=== PATIENT | male | born 1970 | race Caucasian/White ===

== ENCOUNTER 2017-09-17 09:20 | Emergency (ER) | payer SELFPAY ==
[~2017-09-17] VITALS: Ht 195.6 cm; Wt 90.7 kg
[2017-09-17] MEDS ORDERED: GABAPENTIN (09:35)
[2017-09-17] MEDS ORDERED: fentaNYL INJECTION 100 MCG/2 ML AMP IVP ONE (09:45)
[2017-09-17 10:06] LABS: BASOPHILS # (AUTO) 0.1 10^3/uL (0.0-0.1); BASOPHILS % (AUTO) 1 % (0-10); EOSINOPHILS # (AUTO) 0.3 10^3/uL (0.0-0.3); EOSINOPHILS % (AUTO) 3 % (0-10); HEMATOCRIT 48 % (40-54); HEMOGLOBIN 17.3 G/DL (13.3-17.7); LYMPHOCYTES # (AUTO) 1.4 X 10^3 (1.0-4.0); LYMPHOCYTES % (AUTO) 15 % (12-44); MEAN CORPUSCULAR HEMOGLOBIN 34 PG (25-34); MEAN CORPUSCULAR HGB CONC 36 G/DL (32-36); MEAN CORPUSCULAR VOLUME 94 FL (80-99); MEAN PLATELET VOLUME 10.9 FL (7.4-10.4); MONOCYTES % (AUTO) 10 % (0-12); NEUTROPHILS % (AUTO) 72 % (42-75); PLATELET COUNT 238 10^3/uL (130-400); RED BLOOD COUNT 5.13 10^6/uL (4.35-5.85); RED CELL DISTRIBUTION WIDTH 14.3 % (10.0-14.5); WHITE BLOOD COUNT 9.8 10^3/uL (4.3-11.0)
[2017-09-17 10:30] LABS: ALANINE AMINOTRANSFERASE 14 U/L (0-55); ALBUMIN 4.2 GM/DL (3.2-4.5); ALKALINE PHOSPHATASE 59 U/L (40-136); BILIRUBIN,TOTAL 0.5 MG/DL (0.1-1.0); BUN/CREATININE RATIO 14; CALCIUM 9.4 MG/DL (8.5-10.1); CARBON DIOXIDE 24 MMOL/L (21-32); CHLORIDE 109 MMOL/L (98-107); CREATININE SERUM 0.99 MG/DL (0.60-1.30); GFR ESTIMATED > 60; GLUCOSE 117 MG/DL (70-105); MAGNESIUM 2.1 MG/DL (1.8-2.4); SODIUM 144 MMOL/L (135-145)
[2017-09-17 10:31] LABS: AMPHETAMINE SCREEN, URINE NEGATIVE (NEGATIVE); BARBITURATE SCREEN URINE NEGATIVE (NEGATIVE); BENZODIAZEPINES SCREEN URINE NEGATIVE (NEGATIVE); CANNABINOID SCREEN, URINE POSITIVE (NEGATIVE); COCAINE SCREEN URINE NEGATIVE (NEGATIVE); METHADONE STAT NEGATIVE (NEGATIVE); METHAMPHETAMINE SCREEN URINE S NEGATIVE (NEGATIVE); OPIATE SCREEN URINE NEGATIVE (NEGATIVE); OXYCODONE STAT NEGATIVE (NEGATIVE); PROPOXYPHENE STAT NEGATIVE (NEGATIVE); TRICYCLIC ANTIDEPRESSANTS SCRE NEGATIVE (NEGATIVE)
[2017-09-17 10:52] LABS: TSH (THYROID ANALYZER) 1.25 UIU/ML (0.35-4.94)
--- NOTE | 2017-09-17 10:52 | Diagnostic Imaging Report ---
CLINICAL INDICATION: Patient complains of headache involving the top right side of head since yesterday. Patient passed out yesterday for 5-10 minutes. Head shaking for unknown reason. Exams: 1: Axial Head CT without IV contrast. 2: Axial Maxillofacial CT scan without IV contrast with sagittal and coronal reformations. Comparison: None. Findings: Head CT: There is skull streak artifact which obscures portions of the posterior fossa, brainstem, and portion of the brain near the skull, mainly in the frontal region. There is no evidence of acute cerebral infarct, intracranial hemorrhage, or gross mass effect. The brain parenchymal volume appears appropriate for patient's age. There is normal mcwilliams-white matter distinction. There is no significant midline shift or herniation. There is no evidence of hydrocephalus. The basal cisterns are unremarkable. Maxillofacial CT: There is mild to moderate peripheral mucosal thickening involving both maxillary sinuses. There is mild mucosal thickening involving the ethmoid sinus. There are chronic bony defects with medial concave deformities involving the medial orbital wang bilaterally. There is no evidence of extension of the extraocular muscles into the regions of herniated intraorbital fat. Minimal rightward nasal septal deviation seen posteriorly. There is no evidence of acute skull or maxillofacial fracture. Poor dentition is seen with multiple dental caries. IMPRESSION: 1: Unremarkable CT scan of brain. 2: There is no acute skull or maxillofacial fracture. 3: There is chronic bony deformities involving the right and left medial orbital wang with intraorbital fat extending medially. There is no gross CT evidence of extraocular muscle entrapment. 4: Paranasal sinus disease. 5: Poor dentition with multiple dental caries. Dictated by: Dictated on workstation # [id number]
[2017-09-17] MEDS ORDERED: HYDROCHLOROTHIAZIDE 12.5 MG (HCTZ) CAP PO ONE (12:30)
[2017-09-17] MEDS ORDERED: lisINopril 10 MG (PRINIVIL) TABLET PO ONE (12:30)
[2017-09-17] MEDS ORDERED: LISI1TAB6 PO (12:50)
--- NOTE | 2017-09-17 12:50 | ED Headache ---
General Chief Complaint: Head/Cervical Problems Stated Complaint: PASSED OUT X1 DAY,SHARP [place] AND HEAD SHAKING Nursing Triage Note: TO ROOM C/O HEADACHE SNCE YESTERDAY. WAS SEEN AT [facility] AND GIVEN IM OF TORADOL. DID NOT HELP TODAY HEAD SHAKING FOR UNKNOW REASON. Nursing Sepsis Screen: No Definite Risk Source: patient Exam Limitations: no limitations History of Present Illness Date Seen by Provider: September 17, 2017 Time Seen by Provider: 09:35 Initial Comments This 47-year-old ambulatory gentleman presents to the emergency room with complaints of right sided frontal headache that started yesterday. He woke this morning with a tremor of his head. He was seen at [facility] yesterday. He was treated with Toradol for his headache. His pain has worsened since then and we' ll can let 03:00. That's when he noticed a head tremor as well. He was taking aspirin and ibuprofen. He states gjlw-mbz-[id number] medications and Toradol have not been effective for managing the pain. He has notably hypertensive. He denies any use of stimulants aside from nicotine. He reports being a weekend drinker but does not drink daily. He has past marijuana use but denies any recent drug use. He has no focal neurologic deficits aside from his head tremor. Allergies and Home Medications Allergies Coded Allergies: No Known Drug Allergies (Unverified , 09/17/17) Home Medications Lisinopril/Hydrochlorothiazide 1 Each Tablet, 1 EACH PO DAILY Prescribed by: WILDER ROBLERO on 09/17/17 1250 Patient Home Medication List Home Medication List Reviewed: Yes Review of Systems Constitutional: no symptoms reported Eyes: No Symptoms Reported Ears, Nose, Mouth, Throat: no symptoms reported Respiratory: no symptoms reported Cardiovascular: no symptoms reported Gastrointestinal: no symptoms reported Genitourinary: no symptoms reported Musculoskeletal: no symptoms reported Skin: no symptoms reported Psychiatric/Neurological: See HPI Past Dzbugil-Wgjuzc-Ignenu Hx Past Med/Social Hx: Reviewed and Corrections made Patient Social History Alcohol Use: Occasionally Uses Alcohol Beverage of Choice: Beer Recreational Drug Use: Yes (Past THC use) Smoking Status: Current Everyday Smoker Recent Foreign Travel: No Contact w/Someone Who Travel: No Recent Infectious Disease Expo: No Past Medical History Surgeries: Yes Amputation (Traumatic amputations of the fingers on left hand) Respiratory: No Cardiac: No Neurological: No Reproductive Disorders: No Genitourinary: No Gastrointestinal: No Musculoskeletal: Yes Chronic Back Pain, Fractures Endocrine: No HEENT: No Cancer: No Psychosocial: No Integumentary: No Blood Disorders: No Physical Exam Vital Signs Vital Signs - First Documented 09/17/17 09:27 Temp 98.2 Pulse 77 Resp 18 B/P (MAP) 166/31 (76) Pulse Ox 9 O2 Delivery Room Air Capillary Refill : Less Than 3 Seconds General Appearance: WD/WN, mild distress HEENT: PERRL/EOMI, normal ENT inspection, pharynx normal, other (Tympanic membranes obstructed by cerumen bilaterally. No tenderness over the forehead or scalp in the region of his pain. Severe dental decay and erosion with no overt abscess) Neck: normal inspection Cardiovascular: regular rate, rhythm, no edema, no murmur Respiratory: lungs clear, normal breath sounds, no respiratory distress, no accessory muscle use Gastrointestinal: normal bowel sounds, non tender, soft Extremities: non-tender, normal inspection, no pedal edema Psychiatric: alert, oriented x 3 Crainal Nerves: normal hearing, normal speech, PERRL, other (Head tremor noted) Coordination/Gait: normal finger to nose (Normal heel to briceno), normal gait Motor/Sensory: no motor deficit, no sensory deficit Skin: normal color, warm/dry Progress/Results/Core Measures Results/Orders Lab Results Laboratory Tests Test 09/17/17 09:53 09/17/17 09:56 Range/Units White Blood Count 9.8 4.3-11.0 10^3/uL Red Blood Count 5.13 4.35-5.85 10^6/uL Hemoglobin 17.3 13.3-17.7 G/DL Hematocrit 48 40-54 % Mean Corpuscular Volume 94 80-99 FL Mean Corpuscular Hemoglobin 34 25-34 PG Mean Corpuscular Hemoglobin Concent 36 32-36 G/DL Red Cell Distribution Width 14.3 10.0-14.5 % Platelet Count 238 130-400 10^3/uL Mean Platelet Volume 10.9 H 7.4-10.4 FL Neutrophils (%) (Auto) 72 42-75 % Lymphocytes (%) (Auto) 15 12-44 % Monocytes (%) (Auto) 10 0-12 % Eosinophils (%) (Auto) 3 0-10 % Basophils (%) (Auto) 1 0-10 % Neutrophils # (Auto) 7.0 1.8-7.8 X 10^3 Lymphocytes # (Auto) 1.4 1.0-4.0 X 10^3 Monocytes # (Auto) 1.0 0.0-1.0 X 10^3 Eosinophils # (Auto) 0.3 0.0-0.3 10^3/uL Basophils # (Auto) 0.1 0.0-0.1 10^3/uL Sodium Level 144 135-145 MMOL/L Potassium Level 4.0 3.6-5.0 MMOL/L Chloride Level 109 H 98-107 MMOL/L Carbon Dioxide Level 24 21-32 MMOL/L Anion Gap 11 5-14 MMOL/L Blood Urea Nitrogen 14 7-18 MG/DL Creatinine 0.99 0.60-1.30 MG/DL Estimat Glomerular Filtration Rate > 60 BUN/Creatinine Ratio 14 Glucose Level 117 H 70-105 MG/DL Calcium Level 9.4 8.5-10.1 MG/DL Magnesium Level 2.1 1.8-2.4 MG/DL Total Bilirubin 0.5 0.1-1.0 MG/DL Aspartate Amino Transf (AST/SGOT) 12 5-34 U/L Alanine Aminotransferase (ALT/SGPT) 14 0-55 U/L Alkaline Phosphatase 59 40-136 U/L Total Protein 7.0 6.4-8.2 GM/DL Albumin 4.2 3.2-4.5 GM/DL TSH [place] Testing 1.25 0.35-4.94 UIU/ML Serum Alcohol < 10 <10 MG/DL Urine Opiates Screen NEGATIVE NEGATIVE Urine Oxycodone Screen NEGATIVE NEGATIVE Urine Methadone Screen NEGATIVE NEGATIVE Urine Propoxyphene Screen NEGATIVE NEGATIVE Urine Barbiturates Screen NEGATIVE NEGATIVE Ur Tricyclic Antidepressants Screen NEGATIVE NEGATIVE Urine Phencyclidine Screen NEGATIVE NEGATIVE Urine Amphetamines Screen NEGATIVE NEGATIVE Urine Methamphetamines Screen NEGATIVE NEGATIVE Urine Benzodiazepines Screen NEGATIVE NEGATIVE Urine Cocaine Screen NEGATIVE NEGATIVE Urine Cannabinoids Screen POSITIVE H NEGATIVE My Orders Orders - WILDER CUBA MD Alcohol (09/17/17 09:37) Cbc With Automated Diff (09/17/17 09:37) Comprehensive Metabolic Panel (09/17/17 09:37) Drug Screen Stat (Urine) (09/17/17 09:37) Magnesium (09/17/17 09:37) Thyroid Analyzer (09/17/17 09:37) Saline Lock/Iv-Start (09/17/17 09:37) Ct Head/Maxillofacial Wo (09/17/17 09:37) Fentanyl Injection (Sublimaze Injection (09/17/17 09:45) Lisinopril Tablet (Zestril Tablet) (09/17/17 12:30) Hydrochlorothiazide Cap/Tablet (Hctz Cap (09/17/17 12:30) Ketorolac Injection (Toradol Injection) (09/17/17 13:00) Medications Given in ED Current Medications Medications Dose Ordered Sig/Michelle Route Start Time Stop Time Status Last Admin Dose Admin Hydrochlorothiazide 12.5 mg ONCE ONCE PO 09/17/17 12:30 09/17/17 12:31 DC 09/17/17 13:03 12.5 MG Ketorolac Tromethamine 15 mg ONCE ONCE IVP 09/17/17 13:00 09/17/17 13:01 DC 09/17/17 13:01 15 MG Lisinopril 10 mg ONCE ONCE PO 09/17/17 12:30 09/17/17 12:31 DC 09/17/17 13:03 10 MG Vital Signs/I&O 09/17/17 09/17/17 09:27 13:00 Temp 98.2 Pulse 77 68 Resp 18 18 B/P (MAP) 166/31 (76) 155/105 Pulse Ox 9 97 O2 Delivery Room Air Room Air Blood Pressure Mean: 76 Progress Progress Note : Progress Note Patient's pain was initially treated with fentanyl. This improved his pain and his blood pressure also likewise improved. Head tremor seemed to be less intense while pain was controlled. CT of the head and face was obtained. No significant acute abnormalities were identified. There was some paranasal sinus disease but this was not the location of his pain. Pain began to rebound and his blood pressure did as well. He was given Toradol for additional management of his pain. Blood pressure was treated with lisinopril and hydrochlorothiazide. We discussed potential causes of his hypertension. Withdraw from alcohol was considered but it does not seem like he drinks often enough to experience withdraw. Diagnostic Imaging Diagonstic Imaging: CT Plain Films/CT/US/NM/MRI: facial bones, head Comments CT head and face viewed by me and report reviewed. See report below: NAME: NURIS [facility] REC#: [id number] PT STATUS: DEP ER : 1970 PHYSICIAN: WILDER CUBA MD ADMIT DATE: 09/17/17/ER Signed Date of Exam: 09/17/17 CT HEAD/MAXILLOFACIAL WO CLINICAL INDICATION: Patient complains of headache involving the top right side of head since yesterday. Patient passed out yesterday for 5-10 minutes. Head shaking for unknown reason. Exams: 1: Axial Head CT without IV contrast. 2: Axial Maxillofacial CT scan without IV contrast with sagittal and coronal reformations. Comparison: None. Findings: Head CT: There is skull streak artifact which obscures portions of the posterior fossa, brainstem, and portion of the brain near the skull, mainly in the frontal region. There is no evidence of acute cerebral infarct, intracranial hemorrhage, or gross mass effect. The brain parenchymal volume appears appropriate for patient's age. There is normal mcwilliams-white matter distinction. There is no significant midline shift or herniation. There is no evidence of hydrocephalus. The basal cisterns are unremarkable. Maxillofacial CT: There is mild to moderate peripheral mucosal thickening involving both maxillary sinuses. There is mild mucosal thickening involving the ethmoid sinus. There are chronic bony defects with medial concave deformities involving the medial orbital wang bilaterally. There is no evidence of extension of the extraocular muscles into the regions of herniated intraorbital fat. Minimal rightward nasal septal deviation seen posteriorly. There is no evidence of acute skull or maxillofacial fracture. Poor dentition is seen with multiple dental caries. IMPRESSION: 1: Unremarkable CT scan of brain. 2: There is no acute skull or maxillofacial fracture. 3: There is chronic bony deformities involving the right and left medial orbital wang with intraorbital fat extending medially. There is no gross CT evidence of extraocular muscle entrapment. 4: Paranasal sinus disease. 5: Poor dentition with multiple dental caries. Dictated by: Dictated on workstation # [id number] Dict: 09/17/17 1026 Trans: 09/17/171711 Interpreted by: NOLAN LOPEZ MD Electronically signed by: NOLAN LOPEZ MD 09/17/171711 Departure Impression Primary Impression: Hypertensive urgency Additional Impressions: Acute headache Qualified Codes: R51 - Headache Benign head tremor Poor dentition Paranasal sinus disease Disposition: 01 HOME, SELF-CARE Condition: Improved Departure-Patient Inst. Decision time for Depature: 12:15 Referrals: [facility] (PCP/Family) Primary Care Physician Patient Instructions: High Blood Pressure (DC) Add. Discharge Instructions: Fill your prescription and start it tomorrow morning. Follow-up with your primary care provider as soon as possible, preferably in 1 to 2 weeks. Avoid stimulants such as caffeine, energy drinks, decongestant medications, diet medications, etc. Avoid excessive salt in your diet. Return to care if symptoms are worsening. Drink plenty of clear liquids and eat a well-balanced diet. For pain take ibuprofen up to 600 mg every 6 hours as needed. Add Tylenol ( acetaminophen) up to 1000 mg every 6 hours as needed for additional pain relief. All discharge instructions reviewed with patient and/or family. Voiced understanding. Scripts Lisinopril/Hydrochlorothiazide (Lisinopril-Hctz 10-12.5 mg Tab) 1 Each Tablet 1 EACH PO DAILY, #30 TAB Prov: WILDER CUBA MD 09/17/17 Copy Copies To 1: EMMANUEL FERNANDEZ MD, JOSHUA T MD September 17, 2017 12:50
[2017-09-17 13:00] VITALS: BP 155/105
[2017-09-17] MEDS ORDERED: KETOROLAC 30 MG/ML VIAL IVP ONE (13:00)
== END 2017-09-17 13:00 | disposition home or self-care (01) ==
LOC: ER 09:24
DX: I16.0 Hypertensive urgency (principal); R51 Headache; G25.0 Essential tremor; K08.9 Disorder of teeth and supporting structures, unspecified; J32.9 Chronic sinusitis, unspecified; F17.200 Nicotine dependence, unspecified, uncomplicated; Z89.022 Acquired absence of left finger(s)
CPT/HCPCS: 36415; 70450; 70486; 80053; 80306; 80320; 83735; 84443; 85025; 96374; 96375

== ENCOUNTER 2017-11-22 19:47 | Emergency (ER) | payer SELFPAY ==
[~2017-11-22] VITALS: Ht 188 cm; Wt 88.5 kg
[~2017-11-22 19:47] MED LIST: GABAPENTIN; LISI1TAB6 PO
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
[2017-11-22] MEDS ORDERED: HYDROcodone/APAP 5 MG/325 MG (LORTAB) TAB PO ONE (21:15)
[2017-11-22] MEDS ORDERED: RX-HYDROCODONE/APAP 5/325 MG #4 TAB PK PO ONE (21:34)
[2017-11-22 21:40] VITALS: BP 168/94
--- OUTSIDE RECORDS SUMMARY | 2017-11-23 11:24 | XMS REPORT ---
Author Author CASEY CHIN Organization [facility] Address [address] [place] [address] Care Team Providers Care Hvac Manager Name Role Phone CASEY CHIN Unavailable PROBLEMS Type Condition ICD9-CM Code LPC82-MR Code Onset Dates Condition Status SNOMED Code Problem Tobacco use Z72.0 Active 924527172 Problem Peripheral vascular disease I73.9 Active 362466488 Problem Lumbago with sciatica, left side M54.42 Active 347038616 Problem Other chronic pain G89.29 Active 28089498 Problem Lumbago with sciatica, right side M54.41 Active [id number] ALLERGIES No Information ENCOUNTERS Encounter Location Date Diagnosis [place] [id number] [place] [address] Sep, [address] [address] Sep, Lumbar neuritis M54.[address] [address] August, Acute nonintractable headache, unspecified headache type R51 ; Loss of consciousness R40.20 ; Tobacco use Z72.0 ; Peripheral vascular disease I73.9 and Impacted cerumen of both ears H61.23 [place] [id number] [place] [address] August, [address] [address] August, Lumbago with sciatica, left side M54.42 ; Lumbago with sciatica, right side M54.41 and Other chronic pain G89.[address] [address] Jul, Acute midline low back pain without sciatica M54.5 [facility] [address] [facility] [id number] [place] [address] May, Lumbar neuritis M54.16 [facility] [address] [facility] [id number], [place] [address] May, Lumbar neuritis M54.16 [facility] [address] [facility] [id number], [place] [address] Apr, Viral gastroenteritis A08.4 IMMUNIZATIONS No Known Immunizations SOCIAL HISTORY Never Assessed REASON FOR VISIT Xray (walk-in) MHill RT(R) PLAN OF CARE VITAL SIGNS MEDICATIONS Unknown Medications RESULTS Name Result Date Reference Range Xray : Spine, Lumbar 2-3 views (IN HOUSE) 2017-06-15 PROCEDURES Procedure Date Ordered Result Body Site X-RAY EXAM OF LOWER SPINE Jun 15, 2017 INSTRUCTIONS MEDICATIONS ADMINISTERED No Known Medications MEDICAL (GENERAL) HISTORY Type Description Date Surgical History left knee x3 88,92.2000 Surgical History 3 fringers removed from left hand 1989 Surgical History right shoulder 2011 Hospitalization History anxety 2014
--- OUTSIDE RECORDS SUMMARY | 2017-11-23 11:24 | XMS REPORT ---
Author Author CASEY CHIN Organization [facility] Address [address] [place] [address] Care Team Providers Care Pest Management Supervisor Name Role Phone CASEY CHIN Unavailable PROBLEMS Type Condition ICD9-CM Code DYM14-TQ Code Onset Dates Condition Status SNOMED Code Problem Tobacco use Z72.0 Active 961460805 Problem Peripheral vascular disease I73.9 Active 809133700 Problem Lumbago with sciatica, left side M54.42 Active 704536624 Problem Other chronic pain G89.29 Active 10292056 Problem Lumbago with sciatica, right side M54.41 Active 160900714436749 ALLERGIES No Known Allergies ENCOUNTERS Encounter Location Date Diagnosis [place] [address] [address] Oct, Lumbar neuritis M54.16 [place] [address] [address] Oct, [place] [address] [address] Sep, [place] [address] [place] [id number] [place] [address] Sep, Lumbar neuritis M54.[address] [address] August, Acute nonintractable headache, unspecified headache type R51 ; Loss of consciousness R40.20 ; Tobacco use Z72.0 ; Peripheral vascular disease I73.9 and Impacted cerumen of both ears H61.23 [place] [address] [address] August, [place] [address] [address] August, Lumbago with sciatica, left side M54.42 ; Lumbago with sciatica, right side M54.41 and Other chronic pain G89.29 [facility] [address] [place] [id number] [address] Jul, Acute midline low back pain without sciatica M54.5 [facility] [address] [place] [id number] [address] May, Lumbar neuritis M54.16 [facility] [address] [place] [id number] [address] May, Lumbar neuritis M54.16 [facility] [address], [place] [address] Apr, Viral gastroenteritis A08.4 IMMUNIZATIONS No Known Immunizations SOCIAL HISTORY Never Assessed REASON FOR VISIT Lower back pain -MI PLAN OF CARE VITAL SIGNS Height 75 in 2017-08-12 Weight 199 lbs 2017-08-12 Temperature 98.3 degrees Fahrenheit 2017-08-12 Heart Rate 74 bpm 2017-08-12 Respiratory Rate 18 2017-08-12 BMI 24.87 kg/m2 2017-08-12 Blood pressure systolic 132 mmHg 2017-08-12 Blood pressure diastolic 82 mmHg 2017-08-12 MEDICATIONS Medication Instructions Dosage Frequency Start Date End Date Duration Status Zanaflex 4 MG Orally Three times a day 1 tablet as needed 8h Jul, Active Grant 10-325 MG Orally every 6 hrs 1 tablet as needed 6h Jul, Active Cyclobenzaprine HCl 10 mg Orally Three times a day 1 tablet as needed 8h May, Active PredniSONE 20 mg Orally Once a day 2 tablets 24h Jul, Jul, 05 days Active RESULTS No Results PROCEDURES No Known procedures INSTRUCTIONS MEDICATIONS ADMINISTERED No Known Medications MEDICAL (GENERAL) HISTORY Type Description Date Surgical History left knee x3 88,92.2001 Surgical History 3 fringers removed from left hand 1989 Surgical History right shoulder 2011 Hospitalization History anxety 2014
--- OUTSIDE RECORDS SUMMARY | 2017-11-23 11:24 | XMS REPORT ---
Author Author SHELLI HIGHTOWER [facility] Address [address] [place] [address] Care Team Providers Care It Sales Representative Name Role Phone SHELLI HIGHTOWER Unavailable PROBLEMS Type Condition ICD9-CM Code SFE54-ZY Code Onset Dates Condition Status SNOMED Code Problem Tobacco use Z72.0 Active 535872320 Problem Peripheral vascular disease I73.9 Active 642841129 Problem Lumbago with sciatica, left side M54.42 Active 297467417 Problem Other chronic pain G89.29 Active 06765348 Problem Lumbago with sciatica, right side M54.41 Active 164965583849438 ALLERGIES No Known Allergies ENCOUNTERS Encounter Location Date Diagnosis [place] [address] [place] [id number] [place] [address] Sep, [place] [address] [address] August, Acute nonintractable headache, unspecified headache type R51 ; Loss of consciousness R40.20 ; Tobacco use Z72.0 ; Peripheral vascular disease I73.9 and Impacted cerumen of both ears H61.23 [place] [address] [place] [id number] [place] [address] August, [place] [address] [place] [id number] [place] [address] August, Lumbago with sciatica, left side M54.42 ; Lumbago with sciatica, right side M54.41 and Other chronic pain G89.29 [place] [address] [place] [id number] [place] [address] Jul, Acute midline low back pain without sciatica M54.5 [place] [address] [place] [id number] [address] May, Lumbar neuritis M54.16 [facility] [address] [facility] [id number], [place] [address] May, Lumbar neuritis M54.16 [facility] [address] [facility] [id number], [place] [address] Apr, Viral gastroenteritis A08.4 IMMUNIZATIONS No Known Immunizations SOCIAL HISTORY Never Assessed REASON FOR VISIT Flu symptoms Pt states he went to work today and started vomiting, states he vomited 6-7 times, has congestion and cough this all started today TATE Cuellar PLAN OF CARE Activity Details Follow Up prn Reason: VITAL SIGNS Height 75 in 2017-04-23 Weight 210.4 lbs 2017-04-23 Temperature 98.5 degrees Fahrenheit 2017-04-23 Heart Rate 78 bpm 2017-04-23 Respiratory Rate 18 2017-04-23 BMI 26.30 kg/m2 2017-04-23 Blood pressure systolic 118 mmHg 2017-04-23 Blood pressure diastolic 76 mmHg 2017-04-23 MEDICATIONS Medication Instructions Dosage Frequency Start Date End Date Duration Status Zofran ODT 4 MG Orally every 8 hrs 1 tablet on the tongue and allow to dissolve 8h Apr, 10 days Active RESULTS Name Result Date Reference Range INFLUENZA A & B (IN HOUSE) 2017-04-23 INFLUENZA A negative INFLUENZA B negative Control + Lot # [id number] Exp date PROCEDURES Procedure Date Ordered Result Body Site INFLUENZA ASSAY W/OPTIC Apr 23, 2017 INSTRUCTIONS MEDICATIONS ADMINISTERED No Known Medications MEDICAL (GENERAL) HISTORY Type Description Date Surgical History left knee x3 88,92.2001 Surgical History 3 fringers removed from left hand 1989 Surgical History right shoulder 2011 Hospitalization History anxety 2014
== END 2017-11-22 21:52 | disposition home or self-care (01) ==
LOC: EDUNIT# 19:47 → ER 19:48
DX: S00.83XA Contusion of other part of head, initial encounter (principal); S10.93XA Contusion of unspecified part of neck, initial encounter; S40.011A Contusion of right shoulder, initial encounter; S20.211A Contusion of right front wall of thorax, initial encounter; R40.2142 Coma scale, eyes open, spontaneous, at arrival to emergency department; R40.2252 Coma scale, best verbal response, oriented, at arrival to emergency department; R40.2362 Coma scale, best motor response, obeys commands, at arrival to emergency department; Z88.8 Allergy status to other drugs, medicaments and biological substances; Y04.8XXA Assault by other bodily force, initial encounter
CPT/HCPCS: 70450; 71100; 72125; 73030

== ENCOUNTER 2018-02-01 05:59 | Observation (INO) | payer OTHER ==
[2018-02-01] VITALS (10 sets, daily range): BP systolic 104–141; BP diastolic 71–92
[~2018-02-01] VITALS: Ht 188 cm; Wt 88.9 kg
--- OUTSIDE RECORDS SUMMARY | 2018-02-01 06:05 | XMS REPORT ---
Author Author CASEY CHIN Organization [facility] Address [address] [place] [address] Care Team Providers Care Power Plant Installer Name Role Phone CASEY CHIN Unavailable PROBLEMS Type Condition ICD9-CM Code YHH30-LE Code Onset Dates Condition Status SNOMED Code Problem Tobacco use Z72.0 Active 700509958 Problem Peripheral vascular disease I73.9 Active 250108435 Problem Lumbago with sciatica, left side M54.42 Active 904502398 Problem Other chronic pain G89.29 Active 69579148 Problem Lumbago with sciatica, right side M54.41 Active 181556917720788 ALLERGIES No Information ENCOUNTERS Encounter Location Date Diagnosis [place] [address] [place] [id number] [place] [address] Nov, Lumbago with sciatica, right side M54.41 and Lumbago with sciatica, left side M54.42 [place] [address] [address] Oct, Lumbar neuritis M54.16 [place] [address] [address] Oct, [place] [address] [address] Sep, [place] [address] [place] [id number] [place] [address]- [address] Sep, Lumbar neuritis M54.16 [place] [address] [address] August, Acute nonintractable headache, unspecified headache type R51 ; Loss of consciousness R40.20 ; Tobacco use Z72.0 ; Peripheral vascular disease I73.9 and Impacted cerumen of both ears H61.23 [facility] [address] [place] [address] August, [facility] [address] [place] [id number] [place] [address]- [address] August, Lumbago with sciatica, left side M54.42 ; Lumbago with sciatica, right side M54.41 and Other chronic pain G89.29 [place] [address] [address] Jul, Acute midline low back pain without sciatica M54.5 [place] [address] [address] May, Lumbar neuritis M54.16 [place] [address] [place] [id number] [place] [address]- [address] May, Lumbar neuritis M54.16 [facility] WALK IN [facility] [address] [place] [id number] [place] [address] Apr, Viral gastroenteritis A08.4 IMMUNIZATIONS No Known Immunizations SOCIAL HISTORY Never Assessed REASON FOR VISIT Controlled Med Refill PLAN OF CARE VITAL SIGNS MEDICATIONS Unknown Medications RESULTS No Results PROCEDURES No Known procedures INSTRUCTIONS MEDICATIONS ADMINISTERED No Known Medications MEDICAL (GENERAL) HISTORY Type Description Date Medical History several broken bones Medical History knee surgery x3 Medical History shoulder surgery right side Medical History broke back Medical History concussion Surgical History left knee x3 88,92.2001 Surgical History 3 fringers removed from left hand 1989 Surgical History right shoulder 2011 Hospitalization History anxety 2014
--- OUTSIDE RECORDS SUMMARY | 2018-02-01 06:05 | XMS REPORT ---
Author Author CASEY CHIN Organization [facility] Address [address] [place] [address] Care Team Providers Care Seafood Preparer Name Role Phone CASEY CHIN Unavailable PROBLEMS Type Condition ICD9-CM Code VAG65-KH Code Onset Dates Condition Status SNOMED Code Problem Tobacco use Z72.0 Active 953402472 Problem Peripheral vascular disease I73.9 Active 760716241 Problem Lumbago with sciatica, left side M54.42 Active 015807684 Problem Other chronic pain G89.29 Active 53364831 Problem Lumbago with sciatica, right side M54.41 Active 237237902413733 ALLERGIES No Information ENCOUNTERS Encounter Location Date Diagnosis [place] [address] [place] [id number] [place] [address] Nov, Lumbago with sciatica, right side M54.41 and Lumbago with sciatica, left side M54.42 [place] [address] [address] Oct, Lumbar neuritis M54.16 [place] [address] [address]- [address] Oct, [place] [address] [address]- [address] Sep, [place] [address] [place] [id number] [place] [address]26[address]- [address] Sep, Lumbar neuritis M54.16 [place] [address] [address] August, Acute nonintractable headache, unspecified headache type R51 ; Loss of consciousness R40.20 ; Tobacco use Z72.0 ; Peripheral vascular disease I73.9 and Impacted cerumen of both ears H61.23 [facility] [address] [place] [address] August, [facility] [address] [place] [id number] [place] [address]- [address] August, Lumbago with sciatica, left side M54.42 ; Lumbago with sciatica, right side M54.41 and Other chronic pain G89.29 [place] [address] [address] Jul, Acute midline low back pain without sciatica M54.5 [place] [address] [address] May, Lumbar neuritis M54.16 [place] [address] [place] [id number] [place] [address]- [address] May, Lumbar neuritis M54.16 [facility] IN [facility] [address] [place] [id number] [place] [address] Apr, Viral gastroenteritis A08.4 IMMUNIZATIONS No Known Immunizations SOCIAL HISTORY Never Assessed REASON FOR VISIT Lab results PLAN OF CARE VITAL SIGNS MEDICATIONS Unknown [...]
--- OUTSIDE RECORDS SUMMARY | 2018-02-01 06:05 | XMS REPORT ---
Author Author CASEY CHIN Organization [facility] Address [address] [place] [address] Care Team Providers Care Double Surface Operator Name Role Phone CASEY CHIN Unavailable PROBLEMS Type Condition ICD9-CM Code IIV50-JD Code Onset Dates Condition Status SNOMED Code Problem Tobacco use Z72.0 Active 156867344 Problem Peripheral vascular disease I73.9 Active 395120530 Problem Lumbago with sciatica, left side M54.42 Active 658871037 Problem Other chronic pain G89.29 Active 81696774 Problem Lumbago with sciatica, right side M54.41 Active 137429664845022 ALLERGIES No Information ENCOUNTERS Encounter Location Date Diagnosis [place] [address] [place] [id number] [place] [address] Nov, Lumbago with sciatica, right side M54.41 and Lumbago with sciatica, left side M54.42 [place] [address] [address] Oct, Lumbar neuritis M54.16 [place] [address] [address]- [address] Oct, [place] [address] [address]- [address] Sep, [place] [address] [place] [id number] [place] [address]- [address] Sep, Lumbar neuritis M54.16 [place] [address] [address] August, Acute nonintractable headache, unspecified headache type R51 ; Loss of consciousness R40.20 ; Tobacco use Z72.0 ; Peripheral vascular disease I73.9 and Impacted cerumen of both ears H61.23 [facility] [address] [place] [address]3983- [address] August, [facility] [address] [place] [id number] [place] [address]- [address] August, Lumbago with sciatica, left side M54.42 ; Lumbago with sciatica, right side M54.41 and Other chronic pain G89.29 [place] [address] [address] Jul, Acute midline low back pain without sciatica M54.5 [place] [address] [address]- [address] May, Lumbar neuritis M54.16 [place] [address] [place] [id number] [place] [address]165- 287[address] May, Lumbar neuritis M54.16 [facility] IN [facility] [address] [place] [id number] [place] [address] Apr, Viral gastroenteritis A08.4 IMMUNIZATIONS No Known Immunizations SOCIAL HISTORY Never Assessed REASON FOR VISIT violation// PLAN OF CARE VITAL SIGNS MEDICATIONS Unknown [...]
--- OUTSIDE RECORDS SUMMARY | 2018-02-01 06:05 | XMS REPORT ---
Author Author CASEY CHIN Organization [facility] Address [address] [place] [address] Care Team Providers Care Auctioneer Tobacco Name Role Phone CASEY CHIN Unavailable PROBLEMS Type Condition ICD9-CM Code TXQ37-PN Code Onset Dates Condition Status SNOMED Code Problem Tobacco use Z72.0 Active 395911008 Problem Peripheral vascular disease I73.9 Active 022888047 Problem Lumbago with sciatica, left side M54.42 Active 464571383 Problem Other chronic pain G89.29 Active 74567459 Problem Lumbago with sciatica, right side M54.41 Active 815129708209329 ALLERGIES No Known Allergies ENCOUNTERS Encounter Location Date Diagnosis [place] [address] [address] Nov, [place] [address] [address] Oct, Lumbar neuritis M54.16 [place] [address] [address]- [address] Oct, [place] [address] [place] [id number] [place] [address] 19663- [address] Sep, [place] [address] [place] [id number] [place] [address] Sep, Lumbar neuritis M54.16 [place] [address] [address]- [address] August, Acute nonintractable headache, unspecified headache type R51 ; Loss of consciousness R40.20 ; Tobacco use Z72.0 ; Peripheral vascular disease I73.9 and Impacted cerumen of both ears H61.23 [place] [address] [address]- [address] August, [facility] [address], [place] [address] August, Lumbago with sciatica, left side M54.42 ; Lumbago with sciatica, right side M54.41 and Other chronic pain G89.29 [place] [address], [place] [address] Jul, Acute midline low back pain without sciatica M54.5 [facility] [address] [place] [address], [place] [address] May, Lumbar neuritis M54.16 [place] [address] [place] [address] [address] May, Lumbar neuritis M54.16 [facility] WALK IN [facility] [address], [place] [address] Apr, Viral gastroenteritis A08.4 IMMUNIZATIONS No Known Immunizations SOCIAL HISTORY Never Assessed REASON FOR VISIT Lower back pain WB-MA PLAN OF CARE VITAL SIGNS Height 75 in 2017-08-28 Weight 199 lbs 2017-08-28 Temperature 98.1 degrees Fahrenheit 2017-08-28 Heart Rate 82 bpm 2017-08-28 Respiratory Rate 18 2017-08-28 BMI 24.87 kg/m2 2017-08-28 Blood pressure systolic 126 mmHg 2017-08-28 Blood pressure diastolic 78 mmHg 2017-08-28 MEDICATIONS Medication Instructions Dosage Frequency Start Date End Date Duration Status Zanaflex 4 MG Orally Three times a day 1 tablet as needed 8h Jul, Active Titus 10-325 MG Orally every 6 hrs 1 tablet as needed 6h August, Active Neurontin 300 MG Orally Three times a day 1 capsule 8h August, 30 day(s) Active Cyclobenzaprine HCl 10 mg Orally Three times a day 1 tablet as needed 8h May, Active RESULTS No Results PROCEDURES No Known procedures INSTRUCTIONS MEDICATIONS ADMINISTERED No Known Medications MEDICAL (GENERAL) HISTORY Type Description Date Surgical History left knee x3 88,92.2001 Surgical History 3 fringers removed from left hand 1989 Surgical History right shoulder 2011 Hospitalization History anxety 2014
--- OUTSIDE RECORDS SUMMARY | 2018-02-01 06:05 | XMS REPORT ---
Author Author EMMANUEL FERNANDEZ Organization [facility] Address [address] [place] [address] Care Team Providers Care Food And Beverage Outlets Manager Name Role Phone EMMANUEL FERNANDEZ Unavailable PROBLEMS Type Condition ICD9-CM Code DAM57-WY Code Onset Dates Condition Status SNOMED Code Problem Tobacco use Z72.0 Active 488563443 Problem Peripheral vascular disease I73.9 Active 506719020 Problem Lumbago with sciatica, left side M54.42 Active 653646427 Problem Other chronic pain G89.29 Active 78998441 Problem Lumbago with sciatica, right side M54.41 Active [id number] ALLERGIES No Known Allergies ENCOUNTERS Encounter Location Date Diagnosis [place] [address] [address] Nov, Lumbago with sciatica, right side M54.41 and Lumbago with sciatica, left side M54.42 [place] [address] [address] [place] [id number] [place] [address] Oct, Lumbar neuritis M54.16 [place] [address] [place] [id number] [place] [address] Oct, [place] [address] [address] Sep, [place] [address] [address] Sep, Lumbar neuritis M54.16 [place] [address] [address] August, Acute nonintractable headache, unspecified headache type R51 ; Loss of consciousness R40.20 ; Tobacco use Z72.0 ; Peripheral vascular disease I73.9 and Impacted cerumen of both ears H61.23 [place] [address] [place] [id number] [place] [address] August, [place] [address] [address] August, Lumbago with sciatica, left side M54.42 ; Lumbago with sciatica, right side M54.41 and Other chronic pain G89.29 [place] [address] [address] Jul, Acute midline low back pain without sciatica M54.5 [place] [address] [address] May, Lumbar neuritis M54.16 [place] [address] [address] May, Lumbar neuritis M54.16 [facility] [address] [place] [id number] [place] [address] Apr, Viral gastroenteritis A08.4 IMMUNIZATIONS Vaccine Route Administration Date Status TORADOL (IM) 60 MG/2ML (UP TO 15 MG) IM Intramuscular September 16, 2017 Administered SOCIAL HISTORY Never Assessed REASON FOR VISIT fell on back , seen by Sherman Hernandez APRN , for this problem before /headaches -- glenn kulkarni PLAN OF CARE Activity Details Follow Up Next available with Sherman Hernandez Reason: VITAL SIGNS Height 75 in 2017-09-16 Weight 193.0 lbs 2017-09-16 Temperature 98.0 degrees Fahrenheit 2017-09-16 Heart Rate 88 bpm 2017-09-16 Respiratory Rate 20 2017-09-16 BMI 24.12 kg/m2 2017-09-16 Blood pressure systolic 140 mmHg 2017-09-16 Blood pressure diastolic 86 mmHg 2017-09-16 MEDICATIONS Medication Instructions Dosage Frequency Start Date End Date Duration Status Cyclobenzaprine HCl 10 mg Orally Three times a day 1 tablet as needed 8h May, Active Neurontin 300 MG Orally Three times a day 1 capsule 8h August, 30 day(s) Not-Taking Deepwater 10-325 MG Orally every 6 hrs 1 tablet as needed 6h 11 Aug, 2017 Active Zanaflex 4 MG Orally Three times a day 1 tablet as needed 8h Jul, Active RESULTS No Results PROCEDURES Procedure Date Ordered Result Body Site TORADOL (IM) 60 MG/2ML (UP TO 15 MG) September 16, 2017 THER/PROPH/DIAG INJ, SC/IM September 16, 2017 INSTRUCTIONS MEDICATIONS ADMINISTERED No Known Medications MEDICAL (GENERAL) HISTORY Type Description Date Medical History several broken bones Medical History knee surgery x3 Medical History shoulder surgery right side Medical History broke back Medical History concussion Surgical History left knee x3 88,92.2000 Surgical History 3 fringers removed from left hand 1989 Surgical History right shoulder 2011 Hospitalization History anxety 2014
--- OUTSIDE RECORDS SUMMARY | 2018-02-01 06:05 | XMS REPORT ---
Author Author CASEY CHIN Organization [facility] Address [address] [place] [address] Care Team Providers Care Assistant Production Manager Name Role Phone CASEY CHIN Unavailable PROBLEMS Type Condition ICD9-CM Code TIW49-CN Code Onset Dates Condition Status SNOMED Code Problem Tobacco use Z72.0 Active 621090516 Problem Peripheral vascular disease I73.9 Active 442253821 Problem Lumbago with sciatica, left side M54.42 Active 866248189 Problem Other chronic pain G89.29 Active 09951398 Problem Lumbago with sciatica, right side M54.41 Active 838078090503270 ALLERGIES No Information ENCOUNTERS Encounter Location Date Diagnosis [place] [address] [place] [id number] [place] [address] Nov, Lumbago with sciatica, right side M54.41 and Lumbago with sciatica, left side M54.42 [place] [address] [address] Oct, Lumbar neuritis M54.16 [place] [address] [address] Oct, [place] [address] [address] Sep, [place] [address] [place] [id number] [place] [address]- [address] Sep, Lumbar neuritis M54.16 [place] [address] [address] August, Acute nonintractable headache, unspecified headache type R51 ; Loss of consciousness R40.20 ; Tobacco use Z72.0 ; Peripheral vascular disease I73.9 and Impacted cerumen of both ears H61.23 [facility] [address] [place] [address] August, [facility] [address] [place] [id number] [place] [address]- [address] August, Lumbago with sciatica, left side M54.42 ; Lumbago with sciatica, right side M54.41 and Other chronic pain G89.29 [place] [address] [address] Jul, Acute midline low back pain without sciatica M54.5 [place] [address] [address] May, Lumbar neuritis M54.16 [place] [address] [place] [id number] [place] [address] 90709- [address] May, Lumbar neuritis M54.16 [facility] [address] [place] [id number] [place] [address] Apr, Viral gastroenteritis A08.4 IMMUNIZATIONS No Known Immunizations SOCIAL HISTORY Never Assessed REASON FOR VISIT Requests return call PLAN OF CARE VITAL SIGNS MEDICATIONS Unknown [...]
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
--- OUTSIDE RECORDS SUMMARY | 2018-02-01 06:05 | XMS REPORT ---
Author Author CASEY CHIN Organization [facility] Address [address] [place] [address] Care Team Providers Care Pattern Filer Name Role Phone CASEY CHIN Unavailable PROBLEMS Type Condition ICD9-CM Code FCE43-ZA Code Onset Dates Condition Status SNOMED Code Problem Tobacco use Z72.0 Active 538826663 Problem Peripheral vascular disease I73.9 Active 359212729 Problem Lumbago with sciatica, left side M54.42 Active 410430778 Problem Other chronic pain G89.29 Active 09388939 Problem Lumbago with sciatica, right side M54.41 Active [id number] ALLERGIES No Known Allergies ENCOUNTERS Encounter Location Date Diagnosis [place] [address] [place] [id number] [place] [address]- [address] Nov, Lumbago with sciatica, right side M54.41 and Lumbago with sciatica, left side M54.42 [place] [address] [place] [id number] [place] [address] 70300- [address] Oct, Lumbar neuritis M54.16 [place] [address] [place] [id number] [place] [address] 47790- [address]72 Oct, [place] [address] [address] Sep, [place] [address] [place] [id number] [place] [address] 15606- 6197 Sep, Lumbar neuritis M54.16 [place] [address] [address] August, Acute nonintractable headache, unspecified headache type R51 ; Loss of consciousness R40.20 ; Tobacco use Z72.0 ; Peripheral vascular disease I73.9 and Impacted cerumen of both ears H61.23 [facility] [address] [place] [address] 88485- [address] August, [facility] [address] [place] [id number] [place] [address] 35197- [address] August, Lumbago with sciatica, left side M54.42 ; Lumbago with sciatica, right side M54.41 and Other chronic pain G89.29 [place] [address] [place] [id number] [place] [address]41- [address] Jul, Acute midline low back pain without sciatica M54.5 [place] [address] [place] [id number] [place] [address]14- [address] May, Lumbar neuritis M54.16 [place] [address] [place] [id number] [place] [address]- 245[address] May, Lumbar neuritis M54.16 [facility] [address] [place] [id number] [place] [address] Apr, Viral gastroenteritis A08.4 IMMUNIZATIONS No Known Immunizations SOCIAL HISTORY Never Assessed REASON FOR VISIT head pain-TATE santiago, head was twitching would stop, blood pressure was high PLAN OF CARE VITAL SIGNS Height 75 in 2017-10-15 Weight 192.0 lbs 2017-10-15 Temperature 98.5 degrees Fahrenheit 2017-10-15 Heart Rate 76 bpm 2017-10-15 Respiratory Rate 18 2017-10-15 BMI 24.00 kg/m2 2017-10-15 Blood pressure systolic 120 mmHg 2017-10-15 Blood pressure diastolic 82 mmHg 2017-10-15 MEDICATIONS Medication Instructions Dosage Frequency Start Date End Date Duration Status Zanaflex 4 MG Orally Three times a day 1 tablet as needed 8h Jul, Active Concord 10-325 MG Orally every 6 hrs 1 tablet as needed 6h Sep, Active RESULTS No Results PROCEDURES Procedure Date Ordered Result Body Site 09 PANEL (PROFILE 1) October 15, 2017 INSTRUCTIONS MEDICATIONS ADMINISTERED No Known [...]
[2018-02-01 06:15] LABS: BASOPHILS # (AUTO) 0.1 10^3/uL (0.0-0.1); BASOPHILS % (AUTO) 1 % (0-10); EOSINOPHILS # (AUTO) 0.3 10^3/uL (0.0-0.3); EOSINOPHILS % (AUTO) 4 % (0-10); HEMATOCRIT 45 % (40-54); HEMOGLOBIN 15.9 G/DL (13.3-17.7); LYMPHOCYTES # (AUTO) 1.8 X 10^3 (1.0-4.0); LYMPHOCYTES % (AUTO) 25 % (12-44); MEAN CORPUSCULAR HEMOGLOBIN 34 PG (25-34); MEAN CORPUSCULAR HGB CONC 35 G/DL (32-36); MEAN CORPUSCULAR VOLUME 95 FL (80-99); MEAN PLATELET VOLUME 9.9 FL (7.4-10.4); MONOCYTES # (AUTO) 0.9 X 10^3 (0.0-1.0); MONOCYTES % (AUTO) 13 % (0-12); NEUTROPHILS # (AUTO) 4.2 X 10^3 (1.8-7.8); NEUTROPHILS % (AUTO) 58 % (42-75); PLATELET COUNT 253 10^3/uL (130-400); RED BLOOD COUNT 4.75 10^6/uL (4.35-5.85); RED CELL DISTRIBUTION WIDTH 13.9 % (10.0-14.5); WHITE BLOOD COUNT 7.3 10^3/uL (4.3-11.0)
[2018-02-01] MEDS ORDERED: ASPIRIN 81 MG CHEW (CHILDREN'S ASA) PO ONE (06:15)
[2018-02-01] MEDS ORDERED: NITROGLYCERIN 0.4 MG SL TABS BTL 25'S SL PRN ×2 (06:15→10:00)
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
[2018-02-01 06:26] LABS: PROTHROMBIN TIME PATIENT 13.3 SEC (12.2-14.7)
[2018-02-01 06:36] LABS: ALANINE AMINOTRANSFERASE 13 U/L (0-55); ALBUMIN 4.1 GM/DL (3.2-4.5); ALKALINE PHOSPHATASE 61 U/L (40-136); AMYLASE 22 U/L (25-125); BILIRUBIN,TOTAL 0.6 MG/DL (0.1-1.0); BUN/CREATININE RATIO 11; CALCIUM 9.2 MG/DL (8.5-10.1); CARBON DIOXIDE 25 MMOL/L (21-32); CHLORIDE 105 MMOL/L (98-107); CREATINE KINASE 85 U/L (30-200); CREATININE SERUM 0.93 MG/DL (0.60-1.30); GFR ESTIMATED > 60; GLUCOSE 88 MG/DL (70-105); LIPASE 13 U/L (8-78); MAGNESIUM 2.2 MG/DL (1.8-2.4); POTASSIUM 4.1 MMOL/L (3.6-5.0); SODIUM 141 MMOL/L (135-145); TOTAL PROTEIN 6.7 GM/DL (6.4-8.2)
[2018-02-01 06:43] LABS: CREATINE KINASE MB 1.5 NG/ML (<6.6); MYOGLOBIN SERUM 34.7 NG/ML (10.0-92.0)
--- NOTE | 2018-02-01 07:11 | Diagnostic Imaging Report ---
INDICATION: Chest pain. COMPARISON: None. FINDINGS: Single view of the chest demonstrates clear lungs bilaterally. The heart is normal. There is no pneumothorax. Osseous structures are normal. IMPRESSION: Negative chest. Dictated by: Dictated on workstation # [id number]
[2018-02-01] MEDS ORDERED: IOHEXOL 350 MG/ML 150 ML (OMNIPAQUE 350) VIAL IV ONE (07:15)
[2018-02-01] MEDS ORDERED: NS 250 ML (IVPB) BAG IV ONE (07:15)
--- NOTE | 2018-02-01 07:45 | Diagnostic Imaging Report ---
PROCEDURE: CT angiography of the chest with contrast. TECHNIQUE: Multiple contiguous axial images were obtained through the chest after uneventful bolus administration of intravenous contrast. 2D reconstructed CTA MIP acquisitions were also performed. INDICATION: Chest pain COMPARISON: None FINDINGS: The heart, pulmonary arteries and aorta are normal. There is no embolism identified. There is no lymphadenopathy within the mediastinum, hilum or axilla. Central airway is normal. The lungs are clear. There is no pneumothorax, effusion or infiltrate. No mass or nodule present. Osseous structures are age-appropriate. Limited evaluation of the upper abdominal solid organs demonstrate a partially enhancing low-density 16 mm left adrenal mass. This likely represents a benign adenoma. Full evaluation with noncontrast imaging is recommended to assure a fatty component. IMPRESSION: 1. No pulmonary embolism, acute aortic pathology or pulmonary infiltrate. 2. Likely benign adrenal adenoma on the left. Followup with noncontrast imaging recommended to assure benignity. Dictated by: Dictated on workstation # [id number]
--- NOTE | 2018-02-01 09:07 | Consultation-Cardiology ---
HPI-Cardiology Cardiology Consultation: Date of Consultation 02/01/18 Time Seen by a Provider: 09:10 Date of Admission 02-01-18 Attending Physician Lashanda Harley MD Admitting Physician [place] Consulting Physician Timothy Smith MD HPI: Chief Complaint: Chest pain Mr. Serrano is a 47 year old male admitted to ICU 5 from the ED with c/o CP. He states he woke up approx 2:00 this morning with sharp, left sided chest pain. He denies any other assoc symptoms. He states he tried take some TUMS and drinking a soda, which usually allows him to belch and relieves the discomfort. He reports it did help somewhat, but not completely. He states he decided to come to the ED. He states he did receive nitro x 1 under the tongue, and eventually the pain resolved. He denies any chest pain at the time of this examination. He reports for approx the last year he has had these episodes of left sided chest pain which he describes as a sharp stabbing pain that radiates up to his left shoulder/arm. He reports it can happen several times a week without r/t activity. He states usually the discomfort is relieved with TUMS or belching. No c/o palpitations, syncope, near syncope, dyspnea or LE edema. He denies any fever or chills. No c/o n/v/d. He reports he smokes cigs, approx 1/2 PPD since age 17. He reports he drinks approx a 6 pack of beer on the weekends. He states he has been under increased stress at home lately d/t advancing dementia of his significant others mother, who lives with them. He reports he had a stress test a couple of years ago in [place] that was reported to be normal. 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 [facility] [place] [place] He reports he received his flu vaccine last week. Review of Systems-Cardiology Review of Systems Constitutional: No chills, No fever, No lightheadedness; tiredness (reports not sleeping well at night d/t increased stress at home); No weight loss, No weight gain Eyes: No blindness, No blurred vision; previous injury (piece of metal philippe to his left eye in the past); No vision change Ears/Nose/Throat: No epistaxis; nasal drainage (thick, yellow drainag); No recent hearing loss, No ulcerations Respiratory: As described under HPI Cardiovascular: As described under HPI Gastrointestinal: No constipation, No diarrhea, No nausea, No vomiting Genitourinary: No burning, No dysuria, No hematuria, No pain Musculoskeletal: back pain (chronic), joint swelling (chronic), muscle pain ( chronic) Skin: No rash, No ulcerations Psychiatric/Neurological: anxiety; No depression, No seizure, No focal weakness , No syncope Hematologic: No bleeding abnormalities DMN-Zrtkeq-Jkljrf Hx Patient Social History Alcohol Use: Occasionally Uses (HISTORY OF ABUSE--30 PACK OF BEER A DAY PLUS A LITER OF HARD LIQUOR A DAY--CLAIMS NO USE X 2 WEEKS PER PT ON 02/01/18) Recreational Drug Use: Yes (THC) Smoking Status: Current Everyday Smoker (2 PPD, RECENTLY DOWN TO 1/2 PPD) Type Used: Cigarettes 2nd Hand Smoke Exposure: Yes Recent Foreign Travel: No Recent Infectious Disease Expo: No Hospitalization with Isolation: Denies Immunizations Up To Date Tetanus Booster (TDap): Less than 5yrs Date of Influenza Vaccine: Jan 22, 2018 Past Medical History PMH As described under Assessment. Family Medical History Family Medical History: He reports his mother had HTN. He reports his father had DM and CHF. Allergies and Home Medications Allergies Coded Allergies: gabapentin (Unverified Adverse Reaction, Intermediate, 11/22/17) pt states med makes him aggressive Home Medications Ibuprofen 200 Mg Tablet, 200 MG PO Q6H PRN for PAIN-MILD, (Reported) Tizanidine HCl 4 Mg Tablet, 4 MG PO TID PRN for MUSCLE SPASMS, (Reported) Physical Exam-Cardiology Physical Exam Vital Signs/I&O 02/01/18 02/01/18 02/01/18 02/02/18 20:00 20:00 21:00 00:00 Temp 97.6 Pulse 59 49 Resp 16 12 B/P (MAP) 124/80 (95) 123/91 (102) Pulse Ox 95 95 95 96 O2 Delivery Room Air Room Air Room Air Room Air 02/02/18 02/02/18 02/02/18 02/02/18 00:00 01:00 04:00 04:00 Pulse 52 55 Resp 13 B/P (MAP) 136/91 (106) Pulse Ox 95 95 95 O2 Delivery Room Air Room Air Room Air 02/02/18 07:00 Pulse 57 02/01/18 23:59 Intake Total 740 ml Balance 740 ml Capillary Refill : Less Than 3 Seconds Constitutional: appears stated age, AAO x 3; No apparent distress; well- nourished HEENT: PERRL, hearing is well preserved; No oral hygience is good Neck: No carotid bruit; carotid pulses are 2 + bilaterally Respiratory: No accessory muscle use, No respiratory distress; chest expansion is symmetric, chest is bilaterally symmetric, lungs clear to auscultation, other (prolonged expiratory phase) Cardiovascular: regular rate-rhythm; No JVD; S1 and S2 Gastrointestinal: No tender; soft, round, audible bowel sounds Rectal: deferred Extremities: no lower extremity edema bilateral Neurologic/Psychiatric: grossly intact, power is 5/5 both on sides Skin: warm/dry; No rash, No ulcerations Data Review Labs Laboratory Tests 02/01/18 09:35: White Blood Count 7.8, Red Blood Count 4.60, Hemoglobin 15.5, Hematocrit 44, Mean Corpuscular Volume 95, Mean Corpuscular Hemoglobin 34, Mean Corpuscular Hemoglobin Concent 36, Red Cell Distribution Width 13.9, Platelet Count 242, Mean Platelet Volume 9.9, Neutrophils (%) (Auto) 59, Lymphocytes (%) (Auto) 28, Monocytes (%) (Auto) 10, Eosinophils (%) (Auto) 4, Basophils (%) (Auto) 1, Neutrophils # (Auto) 4.6, Lymphocytes # (Auto) 2.1, Monocytes # (Auto) 0.7, Eosinophils # (Auto) 0.3, Basophils # (Auto) 0.1, Prothrombin Time 13.1, INR Comment 1.0, Sodium Level 140, Potassium Level 4.5, Chloride Level 104, Carbon Dioxide Level 25, Anion Gap 11, Blood Urea Nitrogen 9, Creatinine 0.84, Estimat Glomerular Filtration Rate > 60, BUN/Creatinine Ratio 11, Glucose Level 88, Calcium Level 9.1, Corrected Calcium 9.1, Total Bilirubin 0.6, Aspartate Amino Transf (AST/SGOT) 10, Alanine Aminotransferase (ALT/SGPT) 12, Alkaline Phosphatase 58, Myoglobin 26.4, Troponin I < 0.30, Total Protein 6.6, Albumin 4.0, Triglycerides Level 116, Cholesterol Level 175, LDL Cholesterol Direct 108 , VLDL Cholesterol 23, HDL Cholesterol 49 02/01/18 15:10: Troponin I < 0.30 02/02/18 03:15: Triglycerides Level 124, Cholesterol Level 209H, LDL Cholesterol Direct 143H, VLDL Cholesterol 25, HDL Cholesterol 52 Radiology NAME: NURIS SERRANO MED REC#: [id number] PT STATUS: REG ER : 1970 PHYSICIAN: NEO ABDUL DO ADMIT DATE: 02/01/18/ER Signed Date of Exam: 02/01/18 CHEST 1 VIEW, AP/PA ONLY INDICATION: Chest pain. COMPARISON: None. FINDINGS: Single view of the chest demonstrates clear lungs bilaterally. The heart is normal. There is no pneumothorax. Osseous structures are normal. IMPRESSION: Negative chest. Dictated by: Dictated on workstation # [id number] Dict: 02/01/18 0701 Trans: 02/01/18841 Interpreted by: HAMIDA BLOUNT Electronically signed by: HAMIDA BLOUNT 02/01/1842 NAME: NURIS SERRANO MED REC#: [id number] PT STATUS: REG ER : 1970 PHYSICIAN: NEO ABDUL DO ADMIT DATE: 02/01/18/ER Signed Date of Exam: 02/01/18 CT ANGIO CHEST W PROCEDURE: CT angiography of the chest with contrast. TECHNIQUE: Multiple contiguous axial images were obtained through the chest after uneventful bolus administration of intravenous contrast. 2D reconstructed CTA MIP acquisitions were also performed. INDICATION: Chest pain COMPARISON: None FINDINGS: The heart, pulmonary arteries and aorta are normal. There is no embolism identified. There is no lymphadenopathy within the mediastinum, hilum or axilla. Central airway is normal. The lungs are clear. There is no pneumothorax, effusion or infiltrate. No mass or nodule present. Osseous structures are age-appropriate. Limited evaluation of the upper abdominal solid organs demonstrate a partially enhancing low-density 16 mm left adrenal mass. This likely represents a benign adenoma. Full evaluation with noncontrast imaging is recommended to assure a fatty component. IMPRESSION: 1. No pulmonary embolism, acute aortic pathology or pulmonary infiltrate. 2. Likely benign adrenal adenoma on the left. Followup with noncontrast imaging recommended to assure benignity. Dictated by: Dictated on workstation # [id number] Dict: 02/01/18726 Trans: 02/01/18841 Interpreted by: HAMIDA BLOUNT Electronically signed by: HAMIDA BLOUNT 02/01/18841 ECG Impression ECG Initial ECG Rhythm: Normal Sinus A/P-Cardiology Assessment/Admission Diagnosis Chest pain of undetermined etiology Tobaccoism - cessation advised Chronic back pain H/O knee surgeries x 2 H/O right shoulder surgery Anxiety Family h/o CAD - father ETOH use (states 6 pack of beer on the weekends) H/O marijuana use (tested pos in August 2017) Discussion and Recomendations Non-specific chest pain of undetermined etiology - no evidence of ACS thus far D/t c/o and risk factors as noted above we advise further cardiac work up with an MPI D/t chronic back and joint pain we advise Lexiscan MPI for tomorrow Echocardiogram to eval structure Start PPI Monitor lab closely We would like to thank medical services for this consults Further recs will be based on his hospital course [place] Feb 01, 2018 09:07
[2018-02-01] MEDS ORDERED: PANTOPRAZOLE 40 MG (PROTONIX) TAB PO NR (09:44)
[2018-02-01 09:45] LABS: BASOPHILS # (AUTO) 0.1 10^3/uL (0.0-0.1); BASOPHILS % (AUTO) 1 % (0-10); EOSINOPHILS # (AUTO) 0.3 10^3/uL (0.0-0.3); EOSINOPHILS % (AUTO) 4 % (0-10); HEMATOCRIT 44 % (40-54); HEMOGLOBIN 15.5 G/DL (13.3-17.7); LYMPHOCYTES # (AUTO) 2.1 X 10^3 (1.0-4.0); LYMPHOCYTES % (AUTO) 28 % (12-44); MEAN CORPUSCULAR HEMOGLOBIN 34 PG (25-34); MEAN CORPUSCULAR HGB CONC 36 G/DL (32-36); MEAN CORPUSCULAR VOLUME 95 FL (80-99); MEAN PLATELET VOLUME 9.9 FL (7.4-10.4); MONOCYTES # (AUTO) 0.7 X 10^3 (0.0-1.0); MONOCYTES % (AUTO) 10 % (0-12); NEUTROPHILS # (AUTO) 4.6 X 10^3 (1.8-7.8); NEUTROPHILS % (AUTO) 59 % (42-75); PLATELET COUNT 242 10^3/uL (130-400); RED CELL DISTRIBUTION WIDTH 13.9 % (10.0-14.5); WHITE BLOOD COUNT 7.8 10^3/uL (4.3-11.0)
[2018-02-01 09:56] LABS: PROTHROMBIN TIME PATIENT 13.1 SEC (12.2-14.7)
[2018-02-01] MEDS ORDERED: morphine INJ 4 MG/ML 1 ML (VIAL/SYRINGE) IVP PRN (10:00)
[2018-02-01 10:03] LABS: ALANINE AMINOTRANSFERASE 12 U/L (0-55); ALKALINE PHOSPHATASE 58 U/L (40-136); BILIRUBIN,TOTAL 0.6 MG/DL (0.1-1.0); BUN/CREATININE RATIO 11; CALCIUM 9.1 MG/DL (8.5-10.1); CARBON DIOXIDE 25 MMOL/L (21-32); CHLORIDE 104 MMOL/L (98-107); CHOLESTEROL 175 MG/DL (< 200); CREATININE SERUM 0.84 MG/DL (0.60-1.30); GFR ESTIMATED > 60; GLUCOSE 88 MG/DL (70-105); HDL CHOLESTEROL 49 MG/DL (40-60); POTASSIUM 4.5 MMOL/L (3.6-5.0); SODIUM 140 MMOL/L (135-145); TOTAL PROTEIN 6.6 GM/DL (6.4-8.2); TRIGLYCERIDES 116 MG/DL (<150); VLDL CHOLESTEROL 23 MG/DL (5-40)
[2018-02-01] MEDS ORDERED: IBUP-30 PO (10:04)
[2018-02-01] MEDS ORDERED: TIZA4TAB3 PO (10:04)
[2018-02-01 10:09] LABS: MYOGLOBIN SERUM 26.4 NG/ML (10.0-92.0)
--- NOTE | 2018-02-01 12:09 | Consultation-Cardiology ---
HPI-Cardiology Cardiology Consultation: Date of Consultation 02/01/18 Time Seen by a Provider: 09:30 Date of Admission Attending Physician Lashanda Harley MD Admitting Physician [place] Consulting Physician ROMÁN BARRETT MD, MA, FACP, FACC, FSCAI, CCDS HPI: Chief Complaint: CC: Chest pain HPI: Mr. Serrano is a 47 year old male admitted to ICU 5 from the ED with c/o CP. He states he woke up approx 2:00 this morning with sharp, left sided chest pain. He denies any other assoc symptoms. He states he tried take some TUMS and drinking a soda, which usually allows him to belch and relieves the discomfort. He reports it did help somewhat, but not completely. He states he decided to come to the ED. He states he did receive nitro x 1 under the tongue, and eventually the pain resolved. He denies any chest pain at the time of this examination. He reports for approx the last year he has had these episodes of left sided chest pain which he describes as a sharp stabbing pain that radiates up to his left shoulder/arm. He reports it can happen several times a week without r/t activity. He states usually the discomfort is relieved with TUMS or belching. No c/o palpitations, syncope, near syncope, dyspnea or LE edema. He denies any fever or chills. No c/o n/v/d. He reports he smokes cigs, approx 1/2 PPD since age 17. He reports he drinks approx a 6 pack of beer on the weekends. He states he has been under increased stress at home lately d/t advancing dementia of his significant others mother, who lives with them. He reports he had a stress test a couple of years ago in [place] that was reported to be normal. 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 [facility] [place] [place] He reports he received his flu vaccine last week. Review of Systems-Cardiology Review of Systems Constitutional: No chills, No fever, No lightheadedness; tiredness (reports not sleeping well at night d/t increased stress at home); No weight loss, No weight gain Eyes: No blindness, No blurred vision; previous injury (piece of metal philippe to his left eye in the past); No vision change Ears/Nose/Throat: No epistaxis; nasal drainage (thick, yellow drainag); No recent hearing loss, No ulcerations Respiratory: As described under HPI Cardiovascular: As described under HPI Gastrointestinal: No constipation, No diarrhea, No nausea, No vomiting Genitourinary: No burning, No dysuria, No hematuria, No pain Musculoskeletal: back pain (chronic), joint swelling (chronic), muscle pain ( chronic) Skin: No rash, No ulcerations Psychiatric/Neurological: anxiety; No depression, No seizure, No focal weakness , No syncope Hematologic: No bleeding abnormalities SHB-Ntudud-Rccusa Hx Patient Social History Alcohol Use: Occasionally Uses Recreational Drug Use: Yes (THC) Smoking Status: Current Everyday Smoker Type Used: Cigarettes 2nd Hand Smoke Exposure: Yes Recent Foreign Travel: No Recent Infectious Disease Expo: No Hospitalization with Isolation: Denies Physical Abuse Screen: No Sexual Abuse: No Immunizations Up To Date Tetanus Booster (TDap): Less than 5yrs Date of Influenza Vaccine: Jan 22, 2018 Past Medical History PMH As described under Assessment. Family Medical History Family Medical History: He reports his mother had HTN. He reports his father had DM and CHF. Allergies and Home Medications Allergies Coded Allergies: gabapentin (Unverified Adverse Reaction, Intermediate, 11/22/17) pt states med makes him aggressive Home Medications Ibuprofen 200 Mg Tablet, 200 MG PO Q6H PRN for PAIN-MILD, (Reported) Tizanidine HCl 4 Mg Tablet, 4 MG PO TID PRN for MUSCLE SPASMS, (Reported) Patient Home Medication List Home Medication List Reviewed: Yes Physical Exam-Cardiology Physical Exam Vital Signs/I&O 02/01/18 02/01/18 02/01/18 02/01/18 06:05 09:18 09:20 09:30 Temp 96.7 97.9 Pulse 70 49 Resp 14 15 B/P (MAP) 142/94 (110) 104/84 (91) Pulse Ox 98 100 98 O2 Delivery Room Air Room Air 02/01/18 02/01/18 02/01/18 09:45 10:00 11:00 Pulse 60 57 64 Resp 14 18 20 B/P (MAP) 141/89 (106) 128/92 (104) 126/87 (100) Pulse Ox 98 97 95 O2 Delivery Room Air Room Air Room Air Capillary Refill : Less Than 3 Seconds Constitutional: appears stated age, AAO x 3; No apparent distress; well- nourished HEENT: PERRL, hearing is well preserved; No oral hygience is good Neck: No carotid bruit; carotid pulses are 2 + bilaterally Respiratory: No accessory muscle use, No respiratory distress; chest expansion is symmetric, chest is bilaterally symmetric, lungs clear to auscultation, other (prolonged expiratory phase) Cardiovascular: regular rate-rhythm; No JVD; S1 and S2 Gastrointestinal: No tender; soft, round, audible bowel sounds Rectal: deferred Extremities: no lower extremity edema bilateral Neurologic/Psychiatric: grossly intact, power is 5/5 both on sides Skin: warm/dry; No rash, No ulcerations Data Review Labs Laboratory Tests 02/01/18 06:05: White Blood Count 7.3, Red Blood Count 4.75, Hemoglobin 15.9, Hematocrit 45, Mean Corpuscular Volume 95, Mean Corpuscular Hemoglobin 34, Mean Corpuscular Hemoglobin Concent 35, Red Cell Distribution Width 13.9, Platelet Count 253, Mean Platelet Volume 9.9, Neutrophils (%) (Auto) 58, Lymphocytes (%) (Auto) 25, Monocytes (%) (Auto) 13H, Eosinophils (%) (Auto) 4, Basophils (%) (Auto) 1, Neutrophils # (Auto) 4.2, Lymphocytes # (Auto) 1.8, Monocytes # (Auto) 0.9, Eosinophils # (Auto) 0.3, Basophils # (Auto) 0.1, Prothrombin Time 13.3, INR Comment 1.0, Activated Partial Thromboplast Time 30, Sodium Level 141, Potassium Level 4.1, Chloride Level 105, Carbon Dioxide Level 25, Anion Gap 11, Blood Urea Nitrogen 10, Creatinine 0.93, Estimat Glomerular Filtration Rate > 60 , BUN/Creatinine Ratio 11, Glucose Level 88, Calcium Level 9.2, Corrected Calcium 9.1, Magnesium Level 2.2, Total Bilirubin 0.6, Aspartate Amino Transf ( AST/SGOT) 11, Alanine Aminotransferase (ALT/SGPT) 13, Alkaline Phosphatase 61, Total Creatine Kinase 85, Creatine Kinase MB 1.5, Myoglobin 34.7, Troponin I < 0.30, B-Type Natriuretic Peptide 27.1, Total Protein 6.7, Albumin 4.1, Amylase Level 22L, Lipase 13 02/01/18 09:35: White Blood Count 7.8, Red Blood Count 4.60, Hemoglobin 15.5, Hematocrit 44, Mean Corpuscular Volume 95, Mean Corpuscular Hemoglobin 34, Mean Corpuscular Hemoglobin Concent 36, Red Cell Distribution Width 13.9, Platelet Count 242, Mean Platelet Volume 9.9, Neutrophils (%) (Auto) 59, Lymphocytes (%) (Auto) 28, Monocytes (%) (Auto) 10, Eosinophils (%) (Auto) 4, Basophils (%) (Auto) 1, Neutrophils # (Auto) 4.6, Lymphocytes # (Auto) 2.1, Monocytes # (Auto) 0.7, Eosinophils # (Auto) 0.3, Basophils # (Auto) 0.1, Prothrombin Time 13.1, INR Comment 1.0, Sodium Level 140, Potassium Level 4.5, Chloride Level 104, Carbon Dioxide Level 25, Anion Gap 11, Blood Urea Nitrogen 9, Creatinine 0.84, Estimat Glomerular Filtration Rate > 60, BUN/Creatinine Ratio 11, Glucose Level 88, Calcium Level 9.1, Corrected Calcium 9.1, Total Bilirubin 0.6, Aspartate Amino Transf (AST/SGOT) 10, Alanine Aminotransferase (ALT/SGPT) 12, Alkaline Phosphatase 58, Myoglobin 26.4, Troponin I < 0.30, Total Protein 6.6, Albumin 4.0, Triglycerides Level 116, Cholesterol Level 175, LDL Cholesterol Direct 108 , VLDL Cholesterol 23, HDL Cholesterol 49 A/P-Cardiology Assessment/Admission Diagnosis Chest pain of undetermined etiology Tobaccoism - cessation advised Chronic back pain H/O knee surgeries x 2 H/O right shoulder surgery Anxiety Family h/o CAD - father ETOH use (states 6 pack of beer on the weekends) H/O marijuana use (tested pos in August 2017) Discussion and Recomendations * Non-specific chest pain of undetermined etiology - no evidence of ACS thus far * D/t nonspecific chest discomfort in the setting of risk factors, we advise further cardiac work up with an MPI * D/t chronic back and joint pain we advise Lexiscan MPI for tomorrow * Echocardiogram to eval for structural heart dis * Start PPI * Monitor lab closely * We would like to thank the [facility] for this consults * Further recs will be based on his hospital course * I spoke with him in detail and answered questions and advised risk factor mod , including immediate and complete smoking cessation Clinical Quality Measures DVT/VTE Risk/Contraindication: Risk Factor Score Per Nursin RFS Level Per Nursing on Admit: 2=Moderate ROMÁN BARRETT MD FACP FAC CCDS Feb 01, 2018 12:09
--- NOTE | 2018-02-01 15:43 | History & Physicial (CHS) ---
HPI History of Present Illness: 47 yo M that presented to ER with chest pain. States that he was awoke around 2 am with chest pain. States that he thought that it was reflux but it was stabbing in the center of his chest with some radiation down his left arm. States that he was sweaty but states that his also had the temperature in the house turned up. States that he has been going thru alot of stress recently. States that he has been treated for anxiety in the past with Ativan.. States that he has been smoking since he was 17 yo. Had a normal stress test several years ago per patient, Denies any previous cath or echo. Currently not taking any other medications. Source: patient Exam Limitations: no limitations Date seen by provider: Feb 01, 2018 Time Seen by Provider: 10:15 Attending Physician Emmanuel Fernandez MD PCP Center/[facility] Consult Date of Admission Feb 01, 2018 at 08:51 Home Medications Home Medications Reviewed patient Home Medication Reconciliation performed by pharmacy medication reconciliations sewing pattern layout technician and/or nursing. Patients Allergies have been reviewed. Allergies Coded Allergies: gabapentin (Unverified Adverse Reaction, Intermediate, 11/22/17) pt states med makes him aggressive VDA-Rhpkyd-Jialpx Hx Patient Social History Alcohol Use: Occasionally Uses Recreational Drug Use: Yes (THC) Smoking Status: Current Everyday Smoker Type Used: Cigarettes 2nd Hand Smoke Exposure: Yes Recent Foreign Travel: No Contact w/other who traveled: No Recent Hopitalizations: No Recent Infectious Disease Expo: No Physical Abuse Screen: No Sexual Abuse: No Immunizations Up To Date Tetanus Booster (TDap): Less than 5yrs Date of Influenza Vaccine: Jan 22, 2018 Past Medical History Anxiety Tobacco Use Review of Systems (CHC) Constitutional: diaphoresis; No dizziness, No fever EENTM: no symptoms reported Respiratory: no symptoms reported; No cough, No dyspnea on exertion, No short of breath Cardiovascular: chest pain (Resolved after the nitro in ER); No edema, No palpitations Gastrointestinal: no symptoms reported; No constipation, No diarrhea; heartburn ; No loss of appetite, No melena, No nausea, No vomiting Genitourinary: no symptoms reported; No dysuria, No frequency, No hematuria Musculoskeletal: other (Left arm pain that is now resolved) Skin: no symptoms reported Psychiatric/Neurological: No Symptoms Reported Reviewed Test Results Reviewed Test Results Lab Laboratory Tests Test 02/01/18 06:05 02/01/18 09:35 02/01/18 15:10 Range/Units White Blood Count 7.3 7.8 4.3-11.0 10^3/uL Red Blood Count 4.75 4.60 4.35-5.85 10^6/uL Hemoglobin 15.9 15.5 13.3-17.7 G/DL Hematocrit 45 44 40-54 % Mean Corpuscular Volume 95 95 80-99 FL Mean Corpuscular Hemoglobin 34 34 25-34 PG Mean Corpuscular Hemoglobin Concent 35 36 32-36 G/DL Red Cell Distribution Width 13.9 13.9 10.0-14.5 % Platelet Count 253 242 130-400 10^3/uL Mean Platelet Volume 9.9 9.9 7.4-10.4 FL Neutrophils (%) (Auto) 58 59 42-75 % Lymphocytes (%) (Auto) 25 28 12-44 % Monocytes (%) (Auto) 13 H 10 0-12 % Eosinophils (%) (Auto) 4 4 0-10 % Basophils (%) (Auto) 1 1 0-10 % Neutrophils # (Auto) 4.2 4.6 1.8-7.8 X 10^3 Lymphocytes # (Auto) 1.8 2.1 1.0-4.0 X 10^3 Monocytes # (Auto) 0.9 0.7 0.0-1.0 X 10^3 Eosinophils # (Auto) 0.3 0.3 0.0-0.3 10^3/uL Basophils # (Auto) 0.1 0.1 0.0-0.1 10^3/uL Prothrombin Time 13.3 13.1 12.2-14.7 SEC INR Comment 1.0 1.0 0.8-1.4 Activated Partial Thromboplast Time 30 24-35 SEC Sodium Level 141 140 135-145 MMOL/L Potassium Level 4.1 4.5 3.6-5.0 MMOL/L Chloride Level 105 104 98-107 MMOL/L Carbon Dioxide Level 25 25 21-32 MMOL/L Anion Gap 11 11 5-14 MMOL/L Blood Urea Nitrogen 10 9 7-18 MG/DL Creatinine 0.93 0.84 0.60-1.30 MG/DL Estimat Glomerular Filtration Rate > 60 > 60 BUN/Creatinine Ratio 11 11 Glucose Level 88 88 70-105 MG/DL Calcium Level 9.2 9.1 8.5-10.1 MG/DL Corrected Calcium 9.1 9.1 8.5-10.1 MG/DL Magnesium Level 2.2 1.8-2.4 MG/DL Total Bilirubin 0.6 0.6 0.1-1.0 MG/DL Aspartate Amino Transf (AST/SGOT) 11 10 5-34 U/L Alanine Aminotransferase (ALT/SGPT) 13 12 0-55 U/L Alkaline Phosphatase 61 58 40-136 U/L Total Creatine Kinase 85 30-200 U/L Creatine Kinase MB 1.5 <6.6 NG/ML Myoglobin 34.7 26.4 10.0-92.0 NG/ML Troponin I < 0.30 < 0.30 <0.30 NG/ML B-Type Natriuretic Peptide 27.1 <100.0 PG/ML Total Protein 6.7 6.6 6.4-8.2 GM/DL Albumin 4.1 4.0 3.2-4.5 GM/DL Amylase Level 22 L 25-125 U/L Lipase 13 8-78 U/L Triglycerides Level 116 <150 MG/DL Cholesterol Level 175 < 200 MG/DL LDL Cholesterol Direct 108 1-129 MG/DL VLDL Cholesterol 23 5-40 MG/DL HDL Cholesterol 49 40-60 MG/DL Radiology NAME: LEILANINURIS Dahl [facility] REC#: [id number] PT STATUS: REG ER : 1970 PHYSICIAN: NEO ABDUL DO ADMIT DATE: 02/01/18/ER Signed Date of Exam: 02/01/18 CHEST 1 VIEW, AP/PA ONLY INDICATION: Chest pain. COMPARISON: None. FINDINGS: Single view of the chest demonstrates clear lungs bilaterally. The heart is normal. There is no pneumothorax. Osseous structures are normal. IMPRESSION: Negative chest. Dictated by: Dictated on workstation # [id number] Dict: 02/01/18700 Trans: 02/01/18841 Interpreted by: HAMIDA BLOUNT Electronically signed by: HAMIDA BLOUNT 02/01/1842 NAME: NURIS DUKE [facility] REC#: [id number] PT STATUS: REG ER : 1970 PHYSICIAN: NEO ABDUL DO ADMIT DATE: 02/01/18/ER Signed Date of Exam: 02/01/18 CT ANGIO CHEST W PROCEDURE: CT angiography of the chest with contrast. TECHNIQUE: Multiple contiguous axial images were obtained through the chest after uneventful bolus administration of intravenous contrast. 2D reconstructed CTA MIP acquisitions were also performed. INDICATION: Chest pain COMPARISON: None FINDINGS: The heart, pulmonary arteries and aorta are normal. There is no embolism identified. There is no lymphadenopathy within the mediastinum, hilum or axilla. Central airway is normal. The lungs are clear. There is no pneumothorax, effusion or infiltrate. No mass or nodule present. Osseous structures are age-appropriate. Limited evaluation of the upper abdominal solid organs demonstrate a partially enhancing low-density 16 mm left adrenal mass. This likely represents a benign adenoma. Full evaluation with noncontrast imaging is recommended to assure a fatty component. IMPRESSION: 1. No pulmonary embolism, acute aortic pathology or pulmonary infiltrate. 2. Likely benign adrenal adenoma on the left. Followup with noncontrast imaging recommended to assure benignity. Dictated by: Dictated on workstation # [id number] Dict: 02/01/18726 Trans: 02/01/18841 Interpreted by: HAMIDA BLOUNT Electronically signed by: HAMIDA BLOUNT 02/01/18841 Physical Exam-(CHC) Physical Exam Vital Signs VS - Last 72 Hours, by Label 02/01/18 02/01/18 02/01/18 02/01/18 06:05 09:18 09:20 09:25 Temp 96.7 97.9 Pulse 70 63 Resp 14 B/P (MAP) 142/94 (110) Pulse Ox 98 100 O2 Delivery Room Air 02/01/18 02/01/18 02/01/18 02/01/18 09:30 09:45 10:00 11:00 Pulse 49 60 57 64 Resp 14 18 20 B/P (MAP) 104/84 (91) 141/89 (106) 128/92 (104) 126/87 (100) Pulse Ox 98 98 97 95 O2 Delivery Room Air Room Air Room Air Room Air 02/01/18 02/01/18 02/01/18 02/01/18 12:00 12:00 12:00 12:38 Temp 97.9 Pulse 58 64 Resp 13 B/P (MAP) 112/71 (85) Pulse Ox 94 92 O2 Delivery Room Air Room Air 02/01/18 02/01/18 02/01/18 13:00 14:00 15:00 Pulse 52 52 56 Resp 25 33 28 B/P (MAP) 128/82 (97) 129/83 (98) 105/77 (86) Pulse Ox 97 93 95 O2 Delivery Room Air Room Air Room Air Capillary Refill : Less Than 3 Seconds General Appearance: WD/WN, no apparent distress HEENT: PERRL/EOMI Neck: non-tender, supple Respiratory: chest non-tender, lungs clear, normal breath sounds, no respiratory distress, no accessory muscle use Cardiovascular: normal peripheral pulses, regular rate, rhythm, no edema, no JVD, no murmur Gastrointestinal: normal bowel sounds, non tender, soft, no organomegaly Back: no CVA tenderness, no vertebral tenderness Extremities: no pedal edema, no calf tenderness, normal capillary refill Neurologic/Psychiatric: emergency operator II-XII nml as tested, no motor/sensory deficits, alert, normal mood/affect, oriented x 3 Skin: normal color, warm/dry Lymphatic: no adenopathy Assessment/Plan Assessment/Plan Admission Status: Observation (1) Atypical chest pain Status: Acute Assessment & Plan: - Cardiology consulted, plan for stress in AM - CE neg x2, 1 set pending - Daily ASA (2) Tobacco abuse Status: Chronic Assessment & Plan: Discussed the need for cessation (3) DVT prophylaxis Status: Acute Assessment & Plan: [facility] Clinical Quality Measures DVT/VTE Risk/Contraindication: Risk Factor Score Per Nursin RFS Level Per Nursing on Admit: 2=Moderate EMMANUEL FERNANDEZ MD Feb 01, 2018 15:43
[2018-02-01] MEDS: NICOTINE 14 MG (NICODERM) PATCH TD SCH (17:54)
[2018-02-02] VITALS (8 sets, daily range): BP systolic 123–156; BP diastolic 83–91
[2018-02-02 04:01] LABS: CHOLESTEROL 209 MG/DL (< 200); HDL CHOLESTEROL 52 MG/DL (40-60); TRIGLYCERIDES 124 MG/DL (<150); VLDL CHOLESTEROL 25 MG/DL (5-40)
[2018-02-02] MEDS ORDERED: PANTOPRAZOLE 40 MG (PROTONIX) TAB PO SCH (07:00)
--- NOTE | 2018-02-02 08:23 | Diagnostic Imaging Report ---
INDICATION: Chest pain followup. EXAMINATION: Chest 02/02/2018. Comparison made to 02/01/18. FINDINGS: Mild increased density in the right infrahilar region noted and could be due to superimposed structures versus a developing infiltrate correlate with symptoms. Remaining chest is stable and unremarkable. IMPRESSION: 1. Questionable developing infiltrate right infrahilar region see above discussion. Followup recommended. Dictated by: Dictated on workstation # [id number]
--- NOTE | 2018-02-02 08:39 | Discharge Summary ---
Diagnosis/Chief Complaint Date of Admission Feb 01, 2018 at 8:51 am Date of Discharge Chief Complaint/HPI Chief Complaint/HPI 47 yo M that presented to ER with chest pain. States that he was awoke around 2 am with chest pain. States that he thought that it was reflux but it was stabbing in the center of his chest with some radiation down his left arm. States that he was sweaty but states that his also had the temperature in the house turned up. States that he has been going thru alot of stress recently. States that he has been treated for anxiety in the past with Ativan.. States that he has been smoking since he was 17 yo. Had a normal stress test several years ago per patient, Denies any previous cath or echo. Currently not taking any other medications. Discharge Summary-Simple/Stand Consultations Discharge Physical Examination Allergies: Coded Allergies: gabapentin (Unverified Adverse Reaction, Intermediate, 11/22/17) pt states med makes him aggressive Vitals & I&Os Vital Sign - Last 12Hours Date Time Temp Pulse Resp B/P (MAP) Pulse Ox O2 Delivery O2 Flow Rate FiO2 02/02/18 08:00 50 18 138/89 (105) 95 Room Air 02/01/18 20:00 97.6 Intake and Output 02/02/18 00:00 Intake Total 740 ml Balance 740 ml Hospital Course See final discharge diagnosis. Radiology Reviewed NAME: NURIS [facility] REC#: [id number] PT STATUS: REG ER : 1970 PHYSICIAN: NEO ABDUL DO ADMIT DATE: 02/01/18/ER Signed Date of Exam: 02/01/18 CHEST 1 VIEW, AP/PA ONLY INDICATION: Chest pain. COMPARISON: None. FINDINGS: Single view of the chest demonstrates clear lungs bilaterally. The heart is normal. There is no pneumothorax. Osseous structures are normal. IMPRESSION: Negative chest. Dictated by: Dictated on workstation # [id number] Dict: 02/01/18700 Trans: 02/01/18841 Interpreted by: HAMIDA BLOUNT Electronically signed by: HAMIDA BLOUNT 02/01/18841 NAME: NURIS [facility] REC#: [id number] PT STATUS: REG ER : 1970 PHYSICIAN: NEO ABDUL DO ADMIT DATE: 02/01/18/ER Signed Date of Exam: 02/01/18 CT ANGIO CHEST W PROCEDURE: CT angiography of the chest with contrast. TECHNIQUE: Multiple contiguous axial images were obtained through the chest after uneventful bolus administration of intravenous contrast. 2D reconstructed CTA MIP acquisitions were also performed. INDICATION: Chest pain COMPARISON: None FINDINGS: The heart, pulmonary arteries and aorta are normal. There is no embolism identified. There is no lymphadenopathy within the mediastinum, hilum or axilla. Central airway is normal. The lungs are clear. There is no pneumothorax, effusion or infiltrate. No mass or nodule present. Osseous structures are age-appropriate. Limited evaluation of the upper abdominal solid organs demonstrate a partially enhancing low-density 16 mm left adrenal mass. This likely represents a benign adenoma. Full evaluation with noncontrast imaging is recommended to assure a fatty component. IMPRESSION: 1. No pulmonary embolism, acute aortic pathology or pulmonary infiltrate. 2. Likely benign adrenal adenoma on the left. Followup with noncontrast imaging recommended to assure benignity. Dictated by: Dictated on workstation # [id number] Dict: 02/01/1827 Trans: 02/01/18841 Interpreted by: HAMIDA BLOUNT Electronically signed by: HAMIDA BLOUNT 02/01/18841 Discharge Instructions to patient/family Please see electronic discharge instructions given to patient. Discharge Medications Reviewed and agree with Discharge Medication list on patient's Discharge Instruction sheet Clinical Quality Measures DVT/VTE Risk/Contraindication: Risk Factor Score Per Nursin RFS Level Per Nursing on Admit: 2=Moderate EMMANUEL FERNANDEZ MD Feb 02, 2018 8:39 am
[2018-02-02] MEDS ORDERED: ASPI-983 PO (08:40)
--- NOTE | 2018-02-02 08:40 | Progress Note-Cardiology ---
Cardiology SOAP Progress Note Subjective: Sitting up in bed. Denies any further c/o CP. No c/o dyspnea, palpitations, syncope or near syncope. Objective: I&O/Vital Signs 02/01/18 02/02/18 02/02/18 02/02/18 21:00 00:00 00:00 01:00 Pulse 49 52 Resp 12 B/P (MAP) 123/91 (102) Pulse Ox 95 96 95 O2 Delivery Room Air Room Air Room Air 02/02/18 02/02/18 02/02/18 02/02/18 04:00 04:00 07:00 08:00 Pulse 55 57 50 Resp 13 18 B/P (MAP) 136/91 (106) 138/89 (105) Pulse Ox 95 95 95 O2 Delivery Room Air Room Air Room Air 02/02/18 00:00 Intake Total 740 ml Balance 740 ml Weight (Pounds): 196 Weight (Ounces): 3.0 Weight (Calculated Kilograms): 88.177596 Constitutional: appears stated age, AAO x 3; No apparent distress; well- nourished Respiratory: No accessory muscle use, No respiratory distress; chest expansion is symmetric, chest is bilaterally symmetric, lungs clear to auscultation, other (prolonged expiratory phase) Cardiovascular: regular rate-rhythm; No JVD; S1 and S2 Gastrointestional: No tender; soft, round, audible bowel sounds Extremities: no lower extremity edema bilateral Neurologic/Psychiatric: grossly intact, power is 5/5 both on sides Skin: warm/dry; No rash, No ulcerations Results/Procedures: Labs Laboratory Tests 02/01/18 09:35: White Blood Count 7.8, Red Blood Count 4.60, Hemoglobin 15.5, Hematocrit 44, Mean Corpuscular Volume 95, Mean Corpuscular Hemoglobin 34, Mean Corpuscular Hemoglobin Concent 36, Red Cell Distribution Width 13.9, Platelet Count 242, Mean Platelet Volume 9.9, Neutrophils (%) (Auto) 59, Lymphocytes (%) (Auto) 28, Monocytes (%) (Auto) 10, Eosinophils (%) (Auto) 4, Basophils (%) (Auto) 1, Neutrophils # (Auto) 4.6, Lymphocytes # (Auto) 2.1, Monocytes # (Auto) 0.7, Eosinophils # (Auto) 0.3, Basophils # (Auto) 0.1, Prothrombin Time 13.1, INR Comment 1.0, Sodium Level 140, Potassium Level 4.5, Chloride Level 104, Carbon Dioxide Level 25, Anion Gap 11, Blood Urea Nitrogen 9, Creatinine 0.84, Estimat Glomerular Filtration Rate > 60, BUN/Creatinine Ratio 11, Glucose Level 88, Calcium Level 9.1, Corrected Calcium 9.1, Total Bilirubin 0.6, Aspartate Amino Transf (AST/SGOT) 10, Alanine Aminotransferase (ALT/SGPT) 12, Alkaline Phosphatase 58, Myoglobin 26.4, Troponin I < 0.30, Total Protein 6.6, Albumin 4.0, Triglycerides Level 116, Cholesterol Level 175, LDL Cholesterol Direct 108 , VLDL Cholesterol 23, HDL Cholesterol 49 02/01/18 15:10: Troponin I < 0.30 02/02/18 03:15: Triglycerides Level 124, Cholesterol Level 209H, LDL Cholesterol Direct 143H, VLDL Cholesterol 25, HDL Cholesterol 52 Laboratory Tests 02/01/18 06:05 02/01/18 09:35 Procedures NAME: NURIS DUKE [facility] REC#: [id number] PT STATUS: ADM John : 1970 PHYSICIAN: EMMANUEL FERNANDEZ MD ADMIT DATE: 02/01/18/ICU Draft Date of Exam:02/02/18 CHEST 1 VIEW, AP/PA ONLY INDICATION: Chest pain followup. EXAMINATION: Chest 02/02/2018. Comparison made to 02/01/18. FINDINGS: Mild increased density in the right infrahilar region noted and could be due to superimposed structures versus a developing infiltrate correlate with symptoms. Remaining chest is stable and unremarkable. IMPRESSION: 1. Questionable developing infiltrate right infrahilar region see above discussion. Followup recommended. Dictated on workstation # [id number] Dict: 02/02/18 0737 Trans: 02/02/18 0823 [id number] Interpreted by: ИВАН RAYGOZA MD Electronically signed by: A/P: Assessment: Chest pain of undetermined etiology - no evidence of ACS - no further c/o Echocardiogram of 02-01-18 - concentric LVH; LVEF 65-70% Tobaccoism - cessation advised Chronic back pain H/O knee surgeries x 2 H/O right shoulder surgery Anxiety Family h/o CAD - father ETOH use (states 6 pack of beer on the weekends) H/O marijuana use (tested pos in August 2017) Plan: * Non-specific chest pain of undetermined etiology - no evidence of ACS thus far * D/t nonspecific chest discomfort in the setting of risk factors, we advise further cardiac work up with an MPI * D/t chronic back and joint pain we advise Lexiscan MPI for tomorrow * Monitor lab closely * [place] to [place] [facility] [place] * Further recs will be based on his hospital course * I spoke with him in detail and answered questions and advised risk factor mod , including immediate and complete smoking cessation AIMEE LAKE Feb 02, 2018 08:39
[2018-02-02] MEDS: NICOTINE 14 MG (NICODERM) PATCH TD SCH (08:50)
[2018-02-02] MEDS ORDERED: NICOTINE PATCH REMOVAL TP SCH (08:59)
[2018-02-02] MEDS ORDERED: ASPIRIN E.C. 81 MG (ECOTRIN) TAB PO SCH (09:00)
[2018-02-02] MEDS ORDERED: CATHETER FLUSH 10 ML SYR IV PRN (11:45)
[2018-02-02] MEDS ORDERED: REGADENOSON 0.4 MG/5 ML SYR (LEXISCAN) IV ONE ×2 (12:54→13:30)
--- NOTE | 2018-02-02 16:10 | Progress Note-Cardiology ---
Cardiology SOAP Progress Note Subjective: No recurrence of chest discomfort Generally feels well and wishes to go home No palp or syncope Mild to mod chronic exertional shortness of breath Objective: I&O/Vital Signs 02/02/18 02/02/18 02/02/18 02/02/18 07:00 07:50 07:50 07:50 Temp 99.5 Pulse 57 O2 Delivery Room Air Room Air 02/02/18 02/02/18 02/02/18 02/02/18 08:00 09:00 11:15 11:15 Temp 96.6 Pulse 50 51 Resp 18 12 B/P (MAP) 138/89 (105) 129/87 (101) Pulse Ox 95 97 O2 Delivery Room Air Room Air Room Air 02/02/18 02/02/18 02/02/18 13:20 13:21 16:00 Temp 96.6 Pulse 116 105 69 Resp 16 B/P (MAP) 127/83 (98) 156/89 (111) 141/87 (105) Pulse Ox 96 99 97 02/02/18 00:00 Intake Total 740 ml Balance 740 ml Weight (Pounds): 196 Weight (Ounces): 3.0 Weight (Calculated Kilograms): 88.124036 Constitutional: appears stated age, AAO x 3; No apparent distress; well- nourished Respiratory: No accessory muscle use, No respiratory distress; chest expansion is symmetric, chest is bilaterally symmetric, lungs clear to auscultation, other (prolonged expiratory phase) Cardiovascular: regular rate-rhythm; No JVD; S1 and S2 Gastrointestional: No tender; soft, round, audible bowel sounds Extremities: no lower extremity edema bilateral Neurologic/Psychiatric: grossly intact, power is 5/5 both on sides Skin: warm/dry; No rash, No ulcerations Results/Procedures: Labs Laboratory Tests 02/02/18 03:15: Triglycerides Level 124, Cholesterol Level 209H, LDL Cholesterol Direct 143H, VLDL Cholesterol 25, HDL Cholesterol 52 A/P: Assessment: Chest pain of undetermined etiology - no evidence of ACS - no evidence of myocardial ischemia or infarction on MPI of 02/02/18 Echocardiogram of 02-01-18 - concentric LVH; LVEF 65-70% Hypertension Hyperlipidemia Tobaccoism - cessation advised Chronic back pain H/O knee surgeries x 2; H/O right shoulder surgery Anxiety Family h/o CAD - father ETOH use (states 6 pack of beer on the weekends) H/O marijuana use (tested pos in August 2017) Plan: * No evidence of ACS * Focus of management is on risk factor mod. This was discussed in detail * Advised immediate and complete cessation of smoking, EtOH, and street drug use * Treat with bb, statin and aspirin * Outpt f/u advised * I discussed his cardiac w/u with him ROMÁN BARRETT MD FACP FACC CCDS Feb 02, 2018 16:10
[2018-02-02] MEDS ORDERED: PRAV20TA3 PO (16:11)
[2018-02-02] MEDS ORDERED: METO-351 PO (16:11)
--- NOTE | 2018-02-02 16:12 | Discharge Inst-Cardiology ---
Discharge Inst-Cardiac Discharge Medications New Medications: Metoprolol Succinate (Toprol Xl) 25 Mg Tab.er.24h 25 MG PO DAILY, #30 TAB 4 Refills Pravastatin Sodium (Pravastatin Sodium) 20 Mg Tablet 20 MG PO DAILY, #30 TAB 3 Refills Aspirin (Aspirin EC) 81 Mg Tablet.dr 81 MG PO DAILY, #30 TAB Continued Medications: Tizanidine HCl (Tizanidine HCl) 4 Mg Tablet 4 MG PO TID PRN for MUSCLE SPASMS, TAB Discontinued Medications: Ibuprofen (Advil) 200 Mg Tablet 200 MG PO Q6H PRN for PAIN-MILD, TAB Patient Instructions Patient Instructions: F/u with Dr Smith in 2 weeks No smoking ROMÁN SMITH MD FACP FAC CCDS Feb 02, 2018 16:12
--- NOTE | 2018-02-02 20:27 | STRESS TEST ---
DATE OF SERVICE: 02/02/2018 RESTING AND POST REGADENOSON TECHNETIUM-99M TETROFOSMIN SPECT CT IMAGING ORDERING PHYSICIAN: YARA Cade PRIMARY CARE PHYSICIAN: [facility]. OTHER PHYSICIAN: Dr. Smith. CLINICAL DIAGNOSIS: Chest pain. Baseline images were carried out after injection of 10.91 mCi of technetium-99m tetrofosmin. This was followed by 0.4 mg of regadenoson and 28.8 mCi of technetium-99m tetrofosmin for stress imaging. The electrocardiogram showed sinus rhythm at baseline and it did not change significantly with the regadenoson infusion. The patient noted some flushing following regadenoson infusion, which resolved in a few minutes. Overall, he tolerated the procedure well. Review of images at rest and following stress does not indicate any distinct perfusion defects consistent with significant myocardial ischemia or infarction. Gated images show normal global left ventricular systolic function with normal regional wall motion. Left ventricular ejection fraction is calculated to be 48%. Left ventricular end diastolic volume is 93 mL. TID is absent (1.04). CONCLUSIONS: 1. No evidence of any significant myocardial ischemia or infarction on this study. 2. Normal regional wall motion. 3. Normal global left ventricular systolic function with a calculated ejection fraction of 48%. Job ID: [id number] DocumentID: [id number] Dictated Date: 02/02/2018 15:38:27 Traffic Operations Engineer Date: 02/02/2018 20:26:44 Dictated By: ROMÁN SMITH MD, MA, FACP, FACC,
== END 2018-02-02 16:49 | disposition home or self-care (01) ==
LOC: EDUNIT# 05:59 → ER 06:00 → ICU 08:51 → UNDOADMOB 08:51 → ICU 09:05 → UNDODISOB 02-02 17:40
PROVIDERS: ADMIT Family Medicine; ATTEND Family Medicine
DX: R07.89 Other chest pain (principal); F17.210 Nicotine dependence, cigarettes, uncomplicated; F41.9 Anxiety disorder, unspecified; M54.9 Dorsalgia, unspecified; G89.29 Other chronic pain; R06.02 Shortness of breath; Z82.49 Family history of ischemic heart disease and other diseases of the circulatory system; Z79.899 Other long term (current) drug therapy
CPT/HCPCS: 36415; 71045; 71275; 78452; 80053; 80061; 82150; 82550; 82553; 83690; 83735; 83874; 83880; 84484; 85025; 85610; 85730; 93005; 93017; 93041; 93306

== ENCOUNTER 2018-12-13 13:27 | Emergency (ER) | payer OTHER ==
[~2018-12-13] VITALS: Ht 188 cm; Wt 89.0 kg
[~2018-12-13 13:27] MED LIST changes: +ASPI-983 PO; +IBUP-30 PO; +METO-351 PO; +PRAV20TA3 PO; +TIZA4TAB4 PO
--- NOTE | 2018-12-13 14:14 | NUR ---
Bruising noted to outer aspect of pt's R foot and bruise noted to bottom of foot. Pt reports this bruising occured after twisting ankle this morning.
[2018-12-13 14:46] LABS: BASOPHILS # (AUTO) 0.1 10^3/uL (0.0-0.1); BASOPHILS % (AUTO) 0 % (0-10); EOSINOPHILS # (AUTO) 0.1 10^3/uL (0.0-0.3); EOSINOPHILS % (AUTO) 1 % (0-10); HEMATOCRIT 43 % (40-54); HEMOGLOBIN 14.7 G/DL (13.3-17.7); LYMPHOCYTES # (AUTO) 2.1 X 10^3 (1.0-4.0); LYMPHOCYTES % (AUTO) 13 % (12-44); MEAN CORPUSCULAR HEMOGLOBIN 32 PG (25-34); MEAN CORPUSCULAR HGB CONC 34 G/DL (32-36); MEAN CORPUSCULAR VOLUME 95 FL (80-99); MEAN PLATELET VOLUME 10.1 FL (7.4-10.4); MONOCYTES # (AUTO) 1.6 X 10^3 (0.0-1.0); MONOCYTES % (AUTO) 10 % (0-12); NEUTROPHILS # (AUTO) 12.4 X 10^3 (1.8-7.8); NEUTROPHILS % (AUTO) 76 % (42-75); PLATELET COUNT 395 10^3/uL (130-400); RED CELL DISTRIBUTION WIDTH 12.8 % (10.0-14.5); WHITE BLOOD COUNT 16.2 10^3/uL (4.3-11.0)
[2018-12-13 14:59] LABS: ALANINE AMINOTRANSFERASE 26 U/L (0-55); ALBUMIN 4.1 GM/DL (3.2-4.5); ALKALINE PHOSPHATASE 73 U/L (40-136); BILIRUBIN,TOTAL 0.2 MG/DL (0.1-1.0); BUN/CREATININE RATIO 17; CALCIUM 9.3 MG/DL (8.5-10.1); CARBON DIOXIDE 26 MMOL/L (21-32); CHLORIDE 105 MMOL/L (98-107); CREATININE SERUM 0.84 MG/DL (0.60-1.30); GFR ESTIMATED > 60; GLUCOSE 104 MG/DL (70-105); POTASSIUM 3.6 MMOL/L (3.6-5.0); SODIUM 140 MMOL/L (135-145); TOTAL PROTEIN 7.3 GM/DL (6.4-8.2)
[2018-12-13 15:09] LABS: BAND NEUTROPHILS 1 %; BASOPHILS % (MANUAL) 0 %; EOSINOPHILS % (MANUAL) 1 %; LYMPHOCYTES % (MANUAL) 15 %; MONOCYTES % (MANUAL) 7 %; NEUTROPHILS % (MANUAL) 76 %
[2018-12-13 15:10] LABS: RBC MORPH NORMAL
--- NOTE | 2018-12-13 15:10 | ED Lower Extremity ---
General Chief Complaint: Lower Extremity Stated Complaint: ROLLED RT FOOT Nursing Triage Note: PT ARRIVES WITH C/O RIGHT LEG GAIT CHANGE. PT STATES ON THURSDAY HE WOKE WITH A SHARP HEADACHE AND RIGHT LEG PAIN. PT DENIES CHANGE OF SPEECH OR OTHER WEAKNESS. PT DENIES HISTORY OF STROKE. PT TAKES DAILY BABY ASA. PT ALERT AND ORIENT. RIGHT LIMP NOTED. PT STATES DUE TO THE GAIT CHANGE HE STEPPED WRONG TODAY AND INJURED HIS RIGHT ANKLE. Nursing Sepsis Screen: No Definite Risk History of Present Illness Date Seen by Provider: Dec 13, 2018 Time Seen by Provider: 13:50 Initial Comments 48-year-old male presents for right foot and ankle pain. His symptoms actually began approximately 5 days ago, he awoke with a headache and had severe cramps in his right calf. Since then he has been having difficulty ambulating with a normal gait on the right lower extremity. He was evaluated at [facility] and told he had a calf strain. He denies any vision or speech impairments. Due to his abnormal gait he has been having difficulty walking and rolled his right ankle today. He noted immediate onset of ecchymosis to his right foot. He denies any bowel or bladder changes. In the late he sustained a significant work injury with low back problems. He was never evaluated. He is currently having numbness from his toes to the middle one third of his right tibia. He denies any low back pain radiating to his right lower extremity. He chronically has low back pain, and takes a significant amount of Tylenol/ibuprofen daily. Onset: last week Pain/Injury Location: right foot, right ankle Method of Injury: unknown Allergies and Home Medications Allergies Coded Allergies: gabapentin (Unverified Adverse Reaction, Intermediate, 11/22/17) pt states med makes him aggressive Home Medications Aspirin 81 Mg Tablet.dr 81 MG PO DAILY Prescribed by: EMMANUEL FERNANDEZ on 02/02/18 0840 Ciprofloxacin HCl 500 Mg Tablet, 500 MG PO BID Prescribed by: SEE MCGUIRE on 12/13/18 0907 Tramadol HCl 50 Mg Tablet, 50 MG PO Q6H PRN for PAIN Prescribed by: SEE MCGUIRE on 12/13/18 0386 Patient Home Medication List Home Medication List Reviewed: Yes Review of Systems Constitutional: no symptoms reported, see HPI Musculoskeletal: see HPI, back pain, joint pain (right foot and ankle) All Other Systems Reviewed Negative Unless Noted: Yes Past Rkcelxh-Gaivlh-Qvrobi Hx Past Med/Social Hx: Reviewed Nursing Past Med/Soc Hx Patient Social History Alcohol Use: Occasionally Uses Number of Drinks Today: II Alcohol Beverage of Choice: Beer, Other Recreational Drug Use: Yes Drug of Choice: marijuana Smoking Status: Current Everyday Smoker Type Used: Cigarettes 2nd Hand Smoke Exposure: Yes Recent Foreign Travel: No Contact w/Someone Who Travel: No Recent Infectious Disease Expo: No Recent Hopitalizations: No Physical Abuse: No Sexual Abuse: No Immunizations Up To Date Tetanus Booster (TDap): Less than 5yrs Date of Influenza Vaccine: Jan 22, 2018 Seasonal Allergies Seasonal Allergies: No Past Medical History Surgeries: Yes Amputation, Orthopedic Respiratory: No Cardiac: No Neurological: No Reproductive Disorders: No Genitourinary: No Gastrointestinal: No Musculoskeletal: Yes Arthritis, Chronic Back Pain, Fractures Endocrine: No HEENT: No (POOR DENTITION) Cancer: No Psychosocial: Yes Anxiety Integumentary: No Blood Disorders: No Physical Exam Vital Signs Vital Signs - First Documented 12/13/18 13:44 Temp 97.6 Pulse 90 Resp 18 B/P (MAP) 182/107 (132) Pulse Ox 98 O2 Delivery Room Air Capillary Refill : Less Than 3 Seconds Height, Weight, BMI Height: 6'2.00" Weight: 196lbs. 3.0oz. 88.739059zr; 25.3 BMI Method:Stated General Appearance: WD/WN, no apparent distress HEENT: PERRL/EOMI, normal ENT inspection, TMs normal, pharynx normal Neck: non-tender, full range of motion, supple, normal inspection Cardiovascular: normal peripheral pulses, regular rate, rhythm Respiratory: chest non-tender, lungs clear, normal breath sounds Gastrointestinal: normal bowel sounds, non tender, soft Ankles: left ankle non-tender, left ankle normal inspection, left ankle normal range of motion, left ankle no evidence of injury; right ankle bone tenderness, right ankle limited range of motion (secondary to pain), right ankle pain, right ankle soft tissue tenderness, right ankle swelling Feet: right foot ecchymosis (lateral and plantar surface), right foot limited range of motion (secondary to pain) Neurologic/Tendon: normal sensation (decreased sensation L4-L5 distribution right lower extremity), normal motor functions, normal tendon functions Neurologic/Psychiatric: clam treader II-XII nml as tested, no motor/sensory deficits, alert, normal mood/affect, oriented x 3 Skin: normal color, warm/dry Lymphatic: no adenopathy NIH 0 Progress/Results/Core Measures Results/Orders Lab Results Laboratory Tests Test 12/13/18 14:20 12/13/18 15:22 Range/Units White Blood Count 16.2 H 4.3-11.0 10^3/uL Red Blood Count 4.57 4.35-5.85 10^6/uL Hemoglobin 14.7 13.3-17.7 G/DL Hematocrit 43 40-54 % Mean Corpuscular Volume 95 80-99 FL Mean Corpuscular Hemoglobin 32 25-34 PG Mean Corpuscular Hemoglobin Concent 34 32-36 G/DL Red Cell Distribution Width 12.8 10.0-14.5 % Platelet Count 395 130-400 10^3/uL Mean Platelet Volume 10.1 7.4-10.4 FL Neutrophils (%) (Auto) 76 H 42-75 % Lymphocytes (%) (Auto) 13 12-44 % Monocytes (%) (Auto) 10 0-12 % Eosinophils (%) (Auto) 1 0-10 % Basophils (%) (Auto) 0 0-10 % Neutrophils # (Auto) 12.4 H 1.8-7.8 X 10^3 Lymphocytes # (Auto) 2.1 1.0-4.0 X 10^3 Monocytes # (Auto) 1.6 H 0.0-1.0 X 10^3 Eosinophils # (Auto) 0.1 0.0-0.3 10^3/uL Basophils # (Auto) 0.1 0.0-0.1 10^3/uL Neutrophils % (Manual) 76 % Lymphocytes % (Manual) 15 % Monocytes % (Manual) 7 % Eosinophils % (Manual) 1 % Basophils % (Manual) 0 % Band Neutrophils 1 % Blood Morphology Comment NORMAL Sodium Level 140 135-145 MMOL/L Potassium Level 3.6 3.6-5.0 MMOL/L Chloride Level 105 98-107 MMOL/L Carbon Dioxide Level 26 21-32 MMOL/L Anion Gap 9 5-14 MMOL/L Blood Urea Nitrogen 14 7-18 MG/DL Creatinine 0.84 0.60-1.30 MG/DL Estimat Glomerular Filtration Rate > 60 BUN/Creatinine Ratio 17 Glucose Level 104 70-105 MG/DL Calcium Level 9.3 8.5-10.1 MG/DL Corrected Calcium 9.2 8.5-10.1 MG/DL Total Bilirubin 0.2 0.1-1.0 MG/DL Aspartate Amino Transf (AST/SGOT) 17 5-34 U/L Alanine Aminotransferase (ALT/SGPT) 26 0-55 U/L Alkaline Phosphatase 73 40-136 U/L Total Protein 7.3 6.4-8.2 GM/DL Albumin 4.1 3.2-4.5 GM/DL Urine Color YELLOW Urine Clarity CLEAR Urine pH 6.5 5-9 Urine Specific [place] 1.015 L 1.016-1.022 Urine Protein 2+ H NEGATIVE Urine Glucose (UA) NEGATIVE NEGATIVE Urine Ketones 1+ H NEGATIVE Urine Nitrite NEGATIVE NEGATIVE Urine Bilirubin NEGATIVE NEGATIVE Urine Urobilinogen 4 H NORMAL MG/DL Urine Leukocyte Esterase 1+ H NEGATIVE Urine RBC (Auto) NEGATIVE NEGATIVE Urine RBC NONE /HPF Urine WBC 5-10 H /HPF Urine Crystals NONE /LPF Urine Bacteria MODERATE H /HPF Urine Casts NONE /LPF Urine Mucus LARGE H /LPF Urine Culture Indicated YES My Orders Orders - SEE MCGUIRE Cbc With Automated Diff (12/13/18 14:40) Comprehensive Metabolic Panel (12/13/18 14:40) Ua Culture If Indicated (12/13/18 14:40) Ct Head Wo (12/13/18 14:40) Ct Lumbar Spine Wo (12/13/18 14:40) Foot, Right, 3 View (12/13/18 14:40) Ankle, Right, 3 Views (12/13/18 14:40) Manual Differential (12/13/18 14:20) Urine Culture (12/13/18 15:22) Vital Signs/I&O 12/13/18 12/13/18 13:44 16:18 Temp 97.6 97.6 Pulse 90 71 Resp 18 18 B/P (MAP) 182/107 (132) 135/80 (98) Pulse Ox 98 95 O2 Delivery Room Air Room Air Blood Pressure Mean: 132 Progress Progress Note : Time: 13:50 Progress Note Patient seen and evaluated, will obtain labs, x-ray of the foot and ankle on the right and CT of the head and lumbar spine. 1440 CT head negative for acute findings, CT lumbar spine shows degenerative disc disease, ankle no acute fractures or dislocations, foot shows a mildly displaced fifth metatarsal fracture. Results discussed with the patient, Ethan wrap and Cam Walker boot applied to the right lower extremity. Prescription given for crutches. Attempting to make appointment with orthopedics. [address] Lobo's office, they are unable to make appt until it is approved by him. Will have patient call their office for follow up. Discharge instructions and return precautions reviewed with the patient and his spouse. All questions answered. Diagnostic Imaging Diagonstic Imaging: Xray Plain Films/CT/US/NM/MRI: ankle Comments NAME: NURIS DUKE MED REC#: [id number] PT STATUS: REG ER : 1970 PHYSICIAN: SEE MCGUIRE ADMIT DATE: 12/13/18/ER Draft Date of Exam:12/13/18 ANKLE, RIGHT, 3 VIEWS INDICATION: Pain status post injury. COMPARISON: Ankle radiographs from same day. FINDINGS: Three radiographic views of the right ankle were obtained. Acute oblique oriented fracture of the fifth metatarsal is partially included on this exam. No additional acute osseous abnormality of the right ankle is identified. Joint spaces are preserved. No unexpected radiopaque foreign bodies are seen. IMPRESSION: 1. No acute fracture or dislocation of the right ankle. 2. Patient's known fifth metatarsal fracture is partially visualized on this exam. Dictated on workstation # [id number] Dict: 12/13/18 1513 Trans: 12/13/18 [id number] Interpreted by: KARL AHUJA MD Electronically signed by: Reviewed: Reviewed by Me Diagonstic Imaging: Xray Plain Films/CT/US/NM/MRI: other (right foot) Comments NAME: NURIS [facility] MED REC#: [id number] PT STATUS: REG ER : 1970 PHYSICIAN: SEE MCGUIRE ADMIT DATE: 12/13/18/ER Draft Date of Exam:12/13/18 FOOT, RIGHT, 3 VIEW INDICATION: Pain status post injury. COMPARISON: None. FINDINGS: Three radiographic views of the right foot were obtained and demonstrate an acute oblique oriented fracture of the fifth metatarsal. There is mild medial displacement of the distal fracture fragment. There is no intra-articular extension. No other acute osseous abnormalities are seen. Remaining joint spaces are preserved. No unexpected radiopaque foreign bodies are seen. IMPRESSION: 1. Acute mildly displaced fracture of the fifth metatarsal of the right foot as described above. Dictated on workstation # [id number] Dict: 12/13/18 1514 Trans: 12/13/18 1517 [id number] Interpreted by: KARL AHUJA MD Electronically signed by: Reviewed: Reviewed by In Diagonstic Imaging: CT Plain Films/CT/US/NM/MRI: head Comments Date of Exam: 12/13/18 CT HEAD WO PROCEDURE: CT head without contrast. TECHNIQUE: Multiple contiguous axial images were obtained through the brain without the use of intravenous contrast. Auto Exposure Controls were utilized during the CT exam to meet ALARA standards for radiation dose reduction. INDICATION: Headache and right leg weakness. COMPARISON: 11/22/2017. FINDINGS: The ventricles and sulci are within normal limits. There is no hydrocephalus. There is no midline shift. There is no intracranial mass, hemorrhage or extra-axial fluid collection. There is some mucosal thickening in sphenoid sinus. The remaining sinuses and mastoid air cells are clear. IMPRESSION: 1. No acute intracranial abnormality. 2. Sphenoid sinus disease. Reviewed: Reviewed by In Terigonstic Imaging: CT Plain Films/CT/US/NM/MRI: other Comments Date of Exam: 12/13/18 CT LUMBAR SPINE WO PROCEDURE: CT lumbar spine without contrast. TECHNIQUE: Multiple contiguous axial images were obtained through the lumbar spine without the use of intravenous contrast. Sagittal and coronal reformations were then performed. Auto Exposure Controls were utilized during the CT exam to meet ALARA standards for radiation dose reduction. INDICATION: Leg weakness. FINDINGS: The alignment of the lumbar spine is normal. The vertebral body heights are well maintained. There is no spondylolysis or spondylolisthesis. No fractures are identified. There is some broad-based annular bulging and facet disease at L3-L4 and L4-L5. There appears to be sghzkmtq-sj-btvwgg spinal stenosis at both of these levels as well as some encroachment upon the lateral recesses and neural foramina. The aorta is nonaneurysmal. The kidneys are normal in appearance. IMPRESSION: Mild diffuse lumbar spondylosis with some focal degenerative disc disease at L3-L4 and L4-L5. This could be better evaluated with MRI. No acute fracture or traumatic subluxation. Reviewed: Reviewed by Me Departure Impression Primary Impression: Displaced fracture of fifth metatarsal bone, right foot, initial encounter for closed fracture Additional Impressions: UTI (urinary tract infection) Qualified Codes: N30.01 - Acute cystitis with hematuria Degenerative joint disease (DJD) of lumbar spine Qualified Codes: M47.26 - Other spondylosis with radiculopathy, lumbar region Right ankle sprain Qualified Codes: S93.491A - Sprain of other ligament of right ankle, initial encounter Disposition: HOME, SELF-CARE Condition: Improved Departure-Patient Inst. Decision time for Depature: 15:45 Referrals: [facility]MICHAEL (PCP) Primary Care Physician CASEY CHIN (Family) Primary Care Physician Patient Instructions: Ankle Sprain (DC), Degenerative Disc Disease (DC), Foot Fracture (DC), Urinary Tract Infection, Adult (DC) Add. Discharge Instructions: Ice and elevate right ankle and foot 20 minutes every 2 hours. Wear the boot at all times when ambulatory. Use crutches nonweightbearing on the right lower extremity. Ethan wrap to right ankle and foot. Take antibiotics as prescribed for urinary tract infection. Increase water intake, 16 ounces every 2 hours while awake. Empty bladder every 2 hours while awake. Eat 1 cup of fresh blueberries or drink 1 cup of cranberry juice daily. You may alternate between Tylenol 650 mg and ibuprofen 600 mg every 4 hours for pain. For additional pain relief he take one tramadol every 6 hours. Follow-up with Dr. Lobo, call [phone] on for appt. Return to emergency department for new, urgent health care problems. All discharge instructions reviewed with patient and/or family. Voiced understanding. Scripts Tramadol HCl (Tramadol HCl) 50 Mg Tablet 50 MG PO Q6H PRN for PAIN, #20 TAB 0 Refills Prov: SEE MCGUIRE 12/13/18 Ciprofloxacin HCl (Ciprofloxacin HCl) 500 Mg Tablet 500 MG PO BID, #14 TAB 0 Refills Prov: SEE MCGUIRE 12/13/18 Work/School Note: Work Release Form Date Seen in the Emergency Department: Dec 13, 2018 Return to Work: Dec 21, 2018 Other Restrictions Listed Below: Restrictions per Orthopedics. Copy Copies To 1: RENUKA LOBO MD, AMY ARNP Dec 13, 2018 15:10
--- NOTE | 2018-12-13 15:16 | Diagnostic Imaging Report ---
INDICATION: Pain status post injury. COMPARISON: Ankle radiographs from same day. FINDINGS: Three radiographic views of the right ankle were obtained. Acute oblique oriented fracture of the fifth metatarsal is partially included on this exam. No additional acute osseous abnormality of the right ankle is identified. Joint spaces are preserved. No unexpected radiopaque foreign bodies are seen. IMPRESSION: 1. No acute fracture or dislocation of the right ankle. 2. Patient's known fifth metatarsal fracture is partially visualized on this exam. Dictated by: Dictated on workstation # [id number]
--- NOTE | 2018-12-13 15:17 | Diagnostic Imaging Report ---
INDICATION: Pain status post injury. COMPARISON: None. FINDINGS: Three radiographic views of the right foot were obtained and demonstrate an acute oblique oriented fracture of the fifth metatarsal. There is mild medial displacement of the distal fracture fragment. There is no intra-articular extension. No other acute osseous abnormalities are seen. Remaining joint spaces are preserved. No unexpected radiopaque foreign bodies are seen. IMPRESSION: 1. Acute mildly displaced fracture of the fifth metatarsal of the right foot as described above. Dictated by: Dictated on workstation # [id number]
--- NOTE | 2018-12-13 15:31 | Diagnostic Imaging Report ---
PROCEDURE: CT lumbar spine without contrast. TECHNIQUE: Multiple contiguous axial images were obtained through the lumbar spine without the use of intravenous contrast. Sagittal and coronal reformations were then performed. Auto Exposure Controls were utilized during the CT exam to meet ALARA standards for radiation dose reduction. INDICATION: Leg weakness. FINDINGS: The alignment of the lumbar spine is normal. The vertebral body heights are well maintained. There is no spondylolysis or spondylolisthesis. No fractures are identified. There is some broad-based annular bulging and facet disease at L3-L4 and L4-L5. There appears to be ewuhdqlg-xj-xrmzec spinal stenosis at both of these levels as well as some encroachment upon the lateral recesses and neural foramina. The aorta is nonaneurysmal. The kidneys are normal in appearance. IMPRESSION: Mild diffuse lumbar spondylosis with some focal degenerative disc disease at L3-L4 and L4-L5. This could be better evaluated with MRI. No acute fracture or traumatic subluxation. Dictated by: Dictated on workstation # [id number]
--- NOTE | 2018-12-13 15:32 | Diagnostic Imaging Report ---
PROCEDURE: CT head without contrast. TECHNIQUE: Multiple contiguous axial images were obtained through the brain without the use of intravenous contrast. Auto Exposure Controls were utilized during the CT exam to meet ALARA standards for radiation dose reduction. INDICATION: Headache and right leg weakness. COMPARISON: 11/22/2017. FINDINGS: The ventricles and sulci are within normal limits. There is no hydrocephalus. There is no midline shift. There is no intracranial mass, hemorrhage or extra-axial fluid collection. There is some mucosal thickening in sphenoid sinus. The remaining sinuses and mastoid air cells are clear. IMPRESSION: 1. No acute intracranial abnormality. 2. Sphenoid sinus disease. Dictated by: Dictated on workstation # [id number]
[2018-12-13 15:34] LABS: BILIRUBIN,URINE NEGATIVE (NEGATIVE); CLARITY,URINE CLEAR; COLOR,URINE YELLOW; GLUCOSE, URINE (UA) NEGATIVE (NEGATIVE); KETONES,URINE 1+ (NEGATIVE); LEUKOCYTE ESTERASE ,URINE 1+ (NEGATIVE); NITRITE,URINE NEGATIVE (NEGATIVE); PH,URINE 6.5 (5-9); PROTEIN,URINE 2+ (NEGATIVE); UROBILINOGEN,URINE 4 MG/DL (NORMAL)
[2018-12-13 15:45] LABS: BACTERIA,URINE MODERATE /HPF
[2018-12-13] MEDS ORDERED: CIPR500T4 PO (15:55)
[2018-12-13] MEDS ORDERED: TRAM50TA2 PO (15:55)
[2018-12-13 16:18] VITALS: BP 135/80
== END 2018-12-13 16:18 | disposition home or self-care (01) ==
LOC: EDUNIT# 13:27 → ER 13:28
DX: S92.351A Displaced fracture of fifth metatarsal bone, right foot, initial encounter for closed fracture (principal); S93.491A Sprain of other ligament of right ankle, initial encounter; M47.816 Spondylosis without myelopathy or radiculopathy, lumbar region; F17.210 Nicotine dependence, cigarettes, uncomplicated; F41.9 Anxiety disorder, unspecified; Z88.8 Allergy status to other drugs, medicaments and biological substances; Z79.82 Long term (current) use of aspirin; X58.XXXA Exposure to other specified factors, initial encounter
CPT/HCPCS: 36415; 70450; 72131; 73610; 73630; 80053; 81000; 85007; 85027; 87088

== ENCOUNTER → 2018-12-21 | Outpatient (CLI) | payer OTHER ==
[~2018-12-21] MED LIST changes: +CIPR500T4 PO; +TRAM50TA2 PO
--- NOTE | 2018-12-21 14:37 | Diagnostic Imaging Report ---
INDICATION: Followup fracture COMPARISON: 12/13/2018 FINDINGS: Three radiographic views of the right foot were obtained. Again identified is oblique oriented fracture of the fifth metatarsal. There is mild displacement of the distal fracture fragment, also stable. There is no appreciable periosteal callus formation or other evidence of significant interval healing. No new acute fracture or dislocation is identified. Joint spaces are maintained. No unexpected radiopaque foreign bodies are identified. IMPRESSION: 1. Stable mildly displaced fracture of the fifth metatarsal showing no significant interval healing. Dictated by: Dictated on workstation # [id number]
== END ==
LOC: ORTHO 13:55
PROVIDERS: ATTEND Orthopaedic Surgery
DX: S92.351A Displaced fracture of fifth metatarsal bone, right foot, initial encounter for closed fracture (principal); S93.491A Sprain of other ligament of right ankle, initial encounter; X58.XXXA Exposure to other specified factors, initial encounter
CPT/HCPCS: 73630; 99203

== ENCOUNTER → 2018-12-29 | Outpatient (CLI) | payer OTHER ==
--- NOTE | 2018-12-29 09:54 | Diagnostic Imaging Report ---
PROCEDURE: MRI lumbar spine. TECHNIQUE: Multiplanar, multisequence MRI of the lumbar spine was performed without contrast. INDICATION: Numbness to the top of the right foot and right foot drop. Patient has remote history of lumbar spine injury. COMPARISON: No prior MRI lumbar spine studies are available for comparison. FINDINGS: Curvature of the lumbar spine is normal. There is minimal retrolisthesis of L2 on L3 and L3 on L4 as well as L4 on L5. The vertebral body heights are well maintained. The marrow signal intensity is unremarkable. No geographic marrow lesion or acute compression fracture is identified. There is generalized degenerative disc disease with variable disc space narrowing and disc desiccation. The conus medullaris is unremarkable at the L1 level. T12-L1: The central canal is widely patent. The neural foramina are widely patent. L1-2: Central canal is widely patent. The neural foramina are patent. L2-3: There are some degenerative changes to the facets. Minimal ligamentous thickening is present. Central canal does remain patent. There is some moderate narrowing of the lateral recesses bilaterally. There is also mild bilateral neural foraminal narrowing. L3-4: Broad-based disc bulging is present producing some slight flattening of the ventral thecal sac. The AP dimensions of the canal remain within normal limits. There is narrowing of the lateral recesses bilaterally. Moderate bilateral neural foraminal stenosis is present. L4-5: Broad-based disc/osteophyte complex flattens the ventral thecal sac. There is ligamentous thickening and facet changes noted with moderate trefoil configuration of the thecal sac and central canal narrowing. There is significant bilateral lateral recess stenosis as well as moderate to severe bilateral neural foraminal stenosis. L5-S1: Ligamentous thickening is noted. There are facet changes present. This, in combination with broad-based disc/osteophyte complex results in mild to moderate trefoil narrowing of the central canal. There is significant bilateral lateral recess stenosis. Moderate to severe bilateral neural foraminal stenosis is present. Paraspinous tissues are unremarkable. Aorta is non-aneurysmal. IMPRESSION: Multilevel lumbar spondylosis with multilevel central canal, lateral recess and neural foraminal stenosis described level by level above. No acute compression fracture is detected. Dictated by: Dictated on workstation # [id number]
== END ==
LOC: RAD 08:32
PROVIDERS: ATTEND Orthopaedic Surgery
DX: M51.36 Other intervertebral disc degeneration, lumbar region (principal); M47.816 Spondylosis without myelopathy or radiculopathy, lumbar region; M48.07 Spinal stenosis, lumbosacral region
CPT/HCPCS: 72148

== ENCOUNTER 2020-07-05 10:12 | Emergency (ER) | payer SELFPAY ==
[~2020-07-05] VITALS: Ht 187.9 cm; Wt 90.9 kg
[~2020-07-05 10:12] MED LIST changes: +ASPI-1238 PO; -ASPI-983 PO; -CIPR500T4 PO; +CIPR500T5 PO; +LISI1TAB29 PO; -LISI1TAB6 PO; -TRAM50TA2 PO; +TRM50T PO
--- NOTE | 2020-07-05 10:16 | ED Chest Pain ---
General Stated Complaint: CHEST PAIN/LEFT ARM NUMBNESS History of Present Illness Date Seen by Provider: Jul 05, 2020 Time Seen by Provider: 10:15 Initial Comments 49-year-old male presents with chest pain. Reports it feels like a sharp stabbing pain right along his left sternal border. Been on and off for about 4 to 5 days. Patient reports that this morning he woke up with some left arm numbness or tingling that is resolved. He reports he has had multiple broken bones and a broken back. He denies any shortness of breath associate with this chest pain. He denies any nausea vomiting or diaphoresis. He states that sometimes if he takes a deep breath it will get a little worse otherwise nothing seems to make it worse or better.. He denies any cough, fevers or chills. Joce jj reports that he went to be seen in the hospital [place] last night but left prior to being seen due to the wait. Patient does not currently take any medications. He reports a smoker marijuana about 3 days ago. Allergies and Home Medications Allergies Coded Allergies: gabapentin (Unverified Adverse Reaction, Intermediate, 11/22/17) pt states med makes him aggressive Home Medications Aspirin 81 Mg Tablet.dr, 81 MG PO DAILY Prescribed by: EMMANUEL FERNANDEZ on 02/02/18 0840 Ciprofloxacin HCl 500 Mg Tablet, 500 MG PO BID Prescribed by: SEE MCGUIRE on 12/13/18 1555 Tramadol HCl 50 Mg Tablet, 50 MG PO Q6H PRN for PAIN Prescribed by: SEE MCGUIRE on 12/13/18 1555 Patient Home Medication List Home Medication List Reviewed: Yes Review of Systems Review of Systems Constitutional: No chills, No fever Respiratory: Denies Cough, Denies Shortness of Air Cardiovascular: See HPI, Chest Pain; Denies Irregular Heart Rate, Denies Lightheadedness, Denies Palpitations Gastrointestinal: Denies Abdominal Pain, Denies Nausea, Denies Vomiting Musculoskeletal: no symptoms reported Skin: no symptoms reported Endocrine: No Symptoms Reported Hematologic/Lymphatic: No Symptoms Reported Past Efowprd-Jpkfrw-Uqvvdt Hx Past Med/Social Hx: Reviewed Nursing Past Med/Soc Hx Physical Exam Vital Signs Vital Signs - First Documented 07/05/20 10:14 Temp 36.0 Pulse 98 Resp 18 B/P (MAP) 179/119 (139) Pulse Ox 94 O2 Delivery Room Air Capillary Refill : Height, Weight, BMI Height: '" Weight: lbs. oz. kg; BMI Method: General Appearance: No Apparent Distress, WD/WN Respiratory: Lungs Clear, Normal Breath Sounds, Other (Tenderness to palpation left sternal border) Cardiovascular: Regular Rate, Rhythm, No Edema Gastrointestinal: Non Tender, Soft Extremity: Normal Capillary Refill, Normal Inspection, Normal Range of Motion Neurologic/Psychiatric: Alert, Oriented x3, No Motor/Sensory Deficits, Normal Mood/Affect, user experience team lead II-XII Norm as Tested Skin: Normal Color, Warm/Dry Progress/Results/Core Measures Results/Orders Lab Results Laboratory Tests Test 07/05/20 10:28 Range/Units White Blood Count 15.2 H 4.3-11.0 10^3/uL Red Blood Count 5.30 4.30-5.52 10^6/uL Hemoglobin 17.2 13.3-17.7 g/dL Hematocrit 50 40-54 % Mean Corpuscular Volume 95 80-99 fL Mean Corpuscular Hemoglobin 33 25-34 pg Mean Corpuscular Hemoglobin Concent 34 32-36 g/dL Red Cell Distribution Width 13.0 10.0-14.5 % Platelet Count 386 130-400 10^3/uL Mean Platelet Volume 10.0 9.0-12.2 fL Immature Granulocyte % (Auto) 1 % Neutrophils (%) (Auto) 71 42-75 % Lymphocytes (%) (Auto) 15 12-44 % Monocytes (%) (Auto) 6 0-12 % Eosinophils (%) (Auto) 6 0-10 % Basophils (%) (Auto) 1 0-10 % Neutrophils # (Auto) 10.9 H 1.8-7.8 10^3/uL Lymphocytes # (Auto) 2.2 1.0-4.0 10^3/uL Monocytes # (Auto) 0.9 0.0-1.0 10^3/uL Eosinophils # (Auto) 1.0 H 0.0-0.3 10^3/uL Basophils # (Auto) 0.2 H 0.0-0.1 10^3/uL Immature Granulocyte # (Auto) 0.1 0.0-0.1 10^3/uL Neutrophils % (Manual) 77 % Lymphocytes % (Manual) 13 % Monocytes % (Manual) 3 % Eosinophils % (Manual) 7 % Band Neutrophils % Blood Morphology Comment NORMAL Prothrombin Time 12.8 12.2-14.7 SEC INR Comment 0.9 0.8-1.4 Activated Partial Thromboplast Time 31 24-35 SEC Sodium Level 139 135-145 MMOL/L Potassium Level 4.0 3.6-5.0 MMOL/L Chloride Level 101 98-107 MMOL/L Carbon Dioxide Level 27 21-32 MMOL/L Anion Gap 11 5-14 MMOL/L Blood Urea Nitrogen 10 7-18 MG/DL Creatinine 0.95 0.60-1.30 MG/DL Estimat Glomerular Filtration Rate > 60 BUN/Creatinine Ratio 11 Glucose Level 124 H 70-105 MG/DL Calcium Level 9.2 8.5-10.1 MG/DL Corrected Calcium 9.3 8.5-10.1 MG/DL Magnesium Level 2.2 1.6-2.4 MG/DL Total Bilirubin 0.4 0.1-1.0 MG/DL Aspartate Amino Transf (AST/SGOT) 20 5-34 U/L Alanine Aminotransferase (ALT/SGPT) 14 0-55 U/L Alkaline Phosphatase 101 40-136 U/L Myoglobin 37.0 10.0-92.0 NG/ML Troponin I < 0.028 <0.028 NG/ML Total Protein 7.8 6.4-8.2 GM/DL Albumin 3.9 3.2-4.5 GM/DL My Orders Orders - WATKINS,AMAURI L DO Cbc With Automated Diff (07/05/20 10:21) Magnesium (07/05/20 10:21) Chest 1 View, Ap/Pa Only (07/05/20 10:21) Ekg Tracing (07/05/20 10:21) Comprehensive Metabolic Panel (07/05/20 10:21) Myoglobin Serum (07/05/20 10:21) Protime With Inr (07/05/20 10:21) Partial Thromboplastin Time (07/05/20 10:21) O2 (07/05/20 10:21) Monitor-Rhythm Ecg Trace Only (07/05/20 10:21) Lipid Panel (07/06/20 06:00) Ed Iv/Invasive Line Start (07/05/20 10:21) Troponin I (07/05/20 10:21) Aspirin Chewable Tablet (Baby Aspirin Ch (07/05/20 10:30) Manual Differential (07/05/20 10:28) Medications Given in ED Current Medications Medications Dose Ordered Sig/Michelle Route Start Time Stop Time Status Last Admin Dose Admin Aspirin 324 mg ONCE ONCE PO 07/05/20 10:30 07/05/20 10:31 DC 07/05/20 10:33 324 MG Vital Signs/I&O 07/05/20 10:14 Temp 36.0 Pulse 98 Resp 18 B/P (MAP) 179/119 (139) Pulse Ox 94 O2 Delivery Room Air Progress Progress Note : Time: 11:47 Progress Note Patient's labs shows elevated white count, with x-ray showing left-sided pneumonia. Patient with negative troponin. Patient denies any infectious illnesses currently or recently. I will treat him with an antibiotic. He should follow-up with his primary care provider in 5 days for recheck of symptoms and further outpatient evaluation if pneumonia persist. Patient is discharged home in stable condition Initial ECG Impression Date: Jul 05, 2020 Initial ECG Impression Time: 10:18 Initial ECG Rhythm: Normal Sinus Initial ECG Impression: Nonspecific Changes Comment No acute findings Diagnostic Imaging Diagonstic Imaging: Xray Plain Films/CT/US/NM/MRI: chest Comments [facility]. [place], [place] NAME: NURIS [facility] REC#: [id number] PT STATUS: REG ER : 1970 PHYSICIAN: AMAURI WATKINS DO ADMIT DATE: 07/05/20/ER Draft Date of Exam:07/05/20 CHEST 1 VIEW, AP/PA ONLY INDICATION: Chest pain for 5 days. Comparison with 02/02/2018. FINDINGS: Portable chest. There has been development of moderate left basilar pleural effusion and left lower lobe infiltrate. There is a moderate hyperaeration of the lungs bilaterally. Right lung is clear. Heart is not enlarged. No pneumothorax or pleural effusion. No bony abnormalities. IMPRESSION: Findings are consistent with left lower lobe pneumonia with developing left basilar pleural effusion. Dictated on workstation # [id number] Dict: 07/05/20 1054 Trans: 07/05/20 1056 [facility] [id number] Interpreted by: VIC TIWARI MD Reviewed: Reviewed by Me, Reviewed/Discussed Departure Impression Primary Impression: Pneumonia Qualified Codes: J18.9 - Pneumonia, unspecified organism Disposition: HOME, SELF-CARE Condition: Stable Departure-Patient Inst. Patient Instructions: Pneumonia, Adult ED, Atypical Pneumonia (Mycoplasma and Viral) (DC) Add. Discharge Instructions: Follow-up with your primary care provider in approximately 5 days for repeat x- ray and recheck of your symptoms Scripts Azithromycin (Azithromycin) 250 Mg Tablet 250 MG PO UD, #6 TAB TAKE 2 TABLETS ON DAY ONE THEN TAKE 1 TABLET DAILY FOR FOUR MORE DAYS Prov: AMAURI WATKINS DO 07/05/20 AMAURI WATKINS DO Jul 05, 2020 10:15
[2020-07-05] MEDS ORDERED: ASPIRIN 81 MG CHEW (CHILDREN'S ASA) PO ONE (10:30)
[2020-07-05 10:36] LABS: BASOPHILS # (AUTO) 0.2 10^3/uL (0.0-0.1); BASOPHILS % (AUTO) 1 % (0-10); EOSINOPHILS % (AUTO) 6 % (0-10); HEMATOCRIT 50 % (40-54); HEMOGLOBIN 17.2 g/dL (13.3-17.7); LYMPHOCYTES # (AUTO) 2.2 10^3/uL (1.0-4.0); LYMPHOCYTES % (AUTO) 15 % (12-44); MEAN CORPUSCULAR HEMOGLOBIN 33 pg (25-34); MEAN CORPUSCULAR HGB CONC 34 g/dL (32-36); MEAN CORPUSCULAR VOLUME 95 fL (80-99); MONOCYTES # (AUTO) 0.9 10^3/uL (0.0-1.0); MONOCYTES % (AUTO) 6 % (0-12); NEUTROPHILS # (AUTO) 10.9 10^3/uL (1.8-7.8); NEUTROPHILS % (AUTO) 71 % (42-75); PLATELET COUNT 386 10^3/uL (130-400); WHITE BLOOD COUNT 15.2 10^3/uL (4.3-11.0)
[2020-07-05 10:53] LABS: INR 0.9 (0.8-1.4); PROTHROMBIN TIME PATIENT 12.8 SEC (12.2-14.7)
--- NOTE | 2020-07-05 10:56 | Diagnostic Imaging Report ---
INDICATION: Chest pain for 5 days. Comparison with 02/02/2018. FINDINGS: Portable chest. There has been development of moderate left basilar pleural effusion and left lower lobe infiltrate. There is a moderate hyperaeration of the lungs bilaterally. Right lung is clear. Heart is not enlarged. No pneumothorax or pleural effusion. No bony abnormalities. IMPRESSION: Findings are consistent with left lower lobe pneumonia with developing left basilar pleural effusion. Dictated by: Dictated on workstation # [id number]
[2020-07-05 10:59] LABS: ALANINE AMINOTRANSFERASE 14 U/L (0-55); ALBUMIN 3.9 GM/DL (3.2-4.5); ALKALINE PHOSPHATASE 101 U/L (40-136); BILIRUBIN,TOTAL 0.4 MG/DL (0.1-1.0); BUN/CREATININE RATIO 11; CALCIUM 9.2 MG/DL (8.5-10.1); CARBON DIOXIDE 27 MMOL/L (21-32); CHLORIDE 101 MMOL/L (98-107); CREATININE SERUM 0.95 MG/DL (0.60-1.30); GFR ESTIMATED > 60; GLUCOSE 124 MG/DL (70-105); MAGNESIUM 2.2 MG/DL (1.6-2.4); SODIUM 139 MMOL/L (135-145); TOTAL PROTEIN 7.8 GM/DL (6.4-8.2)
[2020-07-05 11:07] LABS: LYMPHOCYTES % (MANUAL) 13 %; NEUTROPHILS % (MANUAL) 77 %
[2020-07-05 11:08] LABS: EOSINOPHILS % (MANUAL) 7 %; MONOCYTES % (MANUAL) 3 %; RBC MORPH NORMAL
[2020-07-05] MEDS ORDERED: AZIT250T12 PO (11:50)
[2020-07-05 12:04] VITALS: BP 135/81
== END 2020-07-05 12:03 | disposition home or self-care (01) ==
LOC: EDUNIT# 10:12 → ER 10:15
DX: J18.9 Pneumonia, unspecified organism (principal); I10 Essential (primary) hypertension; Z88.8 Allergy status to other drugs, medicaments and biological substances; Z79.82 Long term (current) use of aspirin
CPT/HCPCS: 36415; 71045; 80053; 83735; 83874; 84484; 85007; 85027; 85610; 85730; 93005; 93041

== ENCOUNTER 2021-07-29 07:02 | Inpatient (IN) | payer SELFPAY ==
[2021-07-29] VITALS (8 sets, daily range): BP systolic 125–168; BP diastolic 72–88
[~2021-07-29] VITALS: Ht 187 cm; Wt 83.2 kg
[~2021-07-29 07:02] MED LIST changes: +AZIT250T12 PO; -LISI1TAB29 PO; +LISI1TAB44 PO; +TIZA-186 PO; -TIZA4TAB4 PO
[2021-07-29] MEDS ORDERED: ASPIRIN 81 MG CHEW (CHILDREN'S ASA) PO ONE (07:15)
--- NOTE | 2021-07-29 07:17 | ED Chest Pain ---
General Stated Complaint: CHEST PAIN Source: patient Exam Limitations: no limitations History of Present Illness Date Seen by Provider: Jul 29, 2021 Time Seen by Provider: 07:05 Initial Comments Patient to the ER by private conveyance from home with chief complaint that about 4:00 in the morning he was awoken with 9/10 chest pain shortness of air substernal nonradiating. He said the pain got better and went away so he went back to sleep when he woke up, to work him still having the pain. He does not have a history of coronary disease hypertension hyperlipidemia diabetes. He does however smoke and states he had a stroke with right-sided weakness for about 4 months but he is not with any residual deficits now. Family history of diabetes and hypertension but no coronary disease. He takes aspirin every few days when he remembers to. He does not take any other routine medications. He is to follow-up with Sherman Chin at [facility]. 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 Patient rates his pain is a 6 out of 10 presently. No fevers or chills but he has had purulent productive cough and had a grandchild with viral illness perhaps RSV recently. Patient was seen by Dr. Smith inpatient 2018 had an echocardiogram demonstrating an EF of 65 to 70% with concentric LVH, he was diagnosed with hypertension, hyperlipidemia with a cholesterol 209, tobaccoism and was noted his father did have a history of coronary disease. Allergies and Home Medications Allergies Coded Allergies: gabapentin (Unverified Adverse Reaction, Intermediate, 11/22/17) pt states med makes him aggressive Patient Home Medication List Home Medication List Reviewed: Yes Aspirin (Aspirin EC) 81 Mg Tablet., 81 MG PO Q72H, (Reported) Entered as Reported by: DUC LAW on 07/29/21 1135 Last Action: Reviewed Ibuprofen (Ibuprofen) 200 Mg Tablet, 200 MG PO BID, (Reported) Entered as Reported by: DUC LAW on 07/29/21 1135 Last Action: Reviewed Discontinued Medications Aspirin (Aspirin EC) 81 Mg Tablet., 81 MG PO DAILY Discontinued Reason: No Longer Taking Prescribed by: EMMANUEL FERNANDEZ on 02/02/18 0840 Last Action: Discontinued Azithromycin (Azithromycin) 250 Mg Tablet, 250 MG PO UD Discontinued Reason: No Longer Taking Prescribed by: AMAURI WATKINS on 07/05/20 1150 Last Action: Discontinued Ciprofloxacin HCl (Ciprofloxacin HCl) 500 Mg Tablet, 500 MG PO BID Discontinued Reason: No Longer Taking Prescribed by: SEE MCGUIRE on 12/13/181554 Last Action: Discontinued Tramadol HCl (Tramadol HCl) 50 Mg Tablet, 50 MG PO Q6H PRN for PAIN Discontinued Reason: No Longer Taking Prescribed by: SEE MCGUIRE on 12/13/181554 Last Action: Discontinued Review of Systems Review of Systems Constitutional: No chills, No diaphoresis EENTM: No Blurred Vision, No Double Vision Respiratory: Denies Cough, Denies Shortness of Air Cardiovascular: Denies Chest Pain, Denies Lightheadedness Gastrointestinal: Denies Constipated, Denies Diarrhea Genitourinary: Denies Discharge, Denies Drainage Musculoskeletal: No back pain, No joint pain Skin: No pruritus, No rash Psychiatric/Neurological: Denies Headache, Denies Numbness, Denies Paresthesia All Other Systems Reviewed Negative Unless Noted: Yes Past Eonhwuz-Samvwb-Fdwxqf Hx Patient Social History Tobacco Use?: No Use of E-Cig and/or Vaping dev: No Substance use?: No Immunizations Up To Date Tetanus Booster (TDap): Less than 5yrs Seasonal Allergies Seasonal Allergies: No Past Medical History Surgeries: Yes Amputation, Orthopedic Respiratory: No Cardiac: No Neurological: No Reproductive Disorders: No Genitourinary: No Gastrointestinal: No Musculoskeletal: Yes Arthritis, Chronic Back Pain, Fractures Endocrine: No HEENT: No (POOR DENTITION) Cancer: No Psychosocial: Yes Anxiety Integumentary: No Blood Disorders: No Physical Exam Vital Signs Vital Signs - First Documented 07/29/21 07/29/21 07/29/21 07:05 07:32 07:50 Temp 36.1 Pulse 107 Resp 11 B/P (MAP) 201/114 (143) Pulse Ox 96 O2 Delivery Room Air O2 Flow Rate 2.00 Capillary Refill : Height, Weight, BMI Height: 6'2.00" Weight: 196lbs. 3.0oz. 88.234110gd; 25.00 BMI Method:Stated General Appearance: No Apparent Distress, WD/WN HEENT: PERRL/EOMI, Pharynx Normal, Moist Mucous Membranes Neck: Full Range of Motion, Normal Inspection Respiratory: Chest Non Tender, No Accessory Muscle Use, No Respiratory Distress, Decreased Breath Sounds, Rhonci (Mild right more than left), Wheezing (Slight right sided) Cardiovascular: Regular Rate, Rhythm, No Edema, Normal Peripheral Pulses Gastrointestinal: Normal Bowel Sounds, Non Tender, Soft Extremity: Normal Capillary Refill, Normal Inspection, No Pedal Edema Neurologic/Psychiatric: Alert, Oriented x3, No Motor/Sensory Deficits, Normal Mood/Affect Skin: Normal Color, Warm/Dry Focused Exam Lactate Level 07/29/21 07:55: Lactic Acid Level 1.07 Lactic Acid Level Laboratory Tests Test 07/29/21 07:55 Lactic Acid Level 1.07 MMOL/L (0.50-2.00) Progress/Results/Core Measures Results/Orders Lab Results Laboratory Tests Test 07/29/21 07:15 07/29/21 07:55 Range/Units White Blood Count 14.7 H 4.3-11.0 10^3/uL Red Blood Count 5.34 4.30-5.52 10^6/uL Hemoglobin 17.0 13.3-17.7 g/dL Hematocrit 50 40-54 % Mean Corpuscular Volume 94 80-99 fL Mean Corpuscular Hemoglobin 32 25-34 pg Mean Corpuscular Hemoglobin Concent 34 32-36 g/dL Red Cell Distribution Width 14.2 10.0-14.5 % Platelet Count 296 130-400 10^3/uL Mean Platelet Volume 10.1 9.0-12.2 fL Immature Granulocyte % (Auto) 0 % Neutrophils (%) (Auto) 80 H 42-75 % Lymphocytes (%) (Auto) 11 L 12-44 % Monocytes (%) (Auto) 7 0-12 % Eosinophils (%) (Auto) 1 0-10 % Basophils (%) (Auto) 1 0-10 % Neutrophils # (Auto) 11.8 H 1.8-7.8 10^3/uL Lymphocytes # (Auto) 1.6 1.0-4.0 10^3/uL Monocytes # (Auto) 1.1 H 0.0-1.0 10^3/uL Eosinophils # (Auto) 0.1 0.0-0.3 10^3/uL Basophils # (Auto) 0.1 0.0-0.1 10^3/uL Immature Granulocyte # (Auto) 0.1 0.0-0.1 10^3/uL Neutrophils % (Manual) 84 % Lymphocytes % (Manual) 8 % Monocytes % (Manual) 7 % Eosinophils % (Manual) 1 % Anisocytosis SLIGHT Blood Morphology Comment NORMAL Prothrombin Time 12.8 12.2-14.7 SEC INR Comment 0.9 0.8-1.4 Activated Partial Thromboplast Time 29 24-35 SEC D-Dimer 0.57 H 0.00-0.49 UG/ML Sodium Level 143 135-145 MMOL/L Potassium Level 3.6 3.6-5.0 MMOL/L Chloride Level 102 98-107 MMOL/L Carbon Dioxide Level 25 21-32 MMOL/L Anion Gap 16 H 5-14 MMOL/L Blood Urea Nitrogen 12 7-18 MG/DL Creatinine 1.00 0.60-1.30 MG/DL Estimat Glomerular Filtration Rate 91 BUN/Creatinine Ratio 12 Glucose Level 150 H 70-105 MG/DL Calcium Level 8.8 8.5-10.1 MG/DL Corrected Calcium 8.9 8.5-10.1 MG/DL Magnesium Level 1.9 1.6-2.4 MG/DL Total Bilirubin 1.0 0.1-1.0 MG/DL Aspartate Amino Transf (AST/SGOT) 25 5-34 U/L Alanine Aminotransferase (ALT/SGPT) 17 0-55 U/L Alkaline Phosphatase 78 40-136 U/L Myoglobin 91.5 10.0-92.0 NG/ML Troponin I < 0.028 <0.028 NG/ML Total Protein 6.5 6.4-8.2 GM/DL Albumin 3.9 3.2-4.5 GM/DL Lipase 17 8-78 U/L Lactic Acid Level 1.07 0.50-2.00 MMOL/L My Orders Orders - ALIA PEREZ Ekg Tracing (07/29/21 07:04) Continuous Ekg Monitoring (07/29/21 07:04) Cbc With Automated Diff (07/29/21 07:13) Magnesium (07/29/21 07:13) Chest 1 View, Ap/Pa Only (07/29/21 07:13) Comprehensive Metabolic Panel (07/29/21 07:13) Myoglobin Serum (07/29/21 07:13) Protime With Inr (07/29/21 07:13) Partial Thromboplastin Time (07/29/21 07:13) O2 (07/29/21 07:13) Lipid Panel (07/30/21 06:00) Ed Iv/Invasive Line Start (07/29/21 07:13) Lipase (07/29/21 07:13) Fibrin Degradation Products (07/29/21 07:13) Troponin I Arlene (07/29/21 07:13) Nitroglycerin 0.4 Mg Btl 25's (Nitrostat (07/29/21 07:15) Aspirin Chewable Tablet (Baby Aspirin Ch (07/29/21 07:15) Albuterol/Ipra Inhalation Soln (Duoneb I (07/29/21 07:30) Svn Small Volume Nebulizer (07/29/21 07:17) Manual Differential (07/29/21 07:15) Blood Culture (07/29/21 07:45) Ed Iv/Invasive Line Start (07/29/21 07:45) Ed Iv/Invasive Line Start (07/29/21 07:45) Vital Signs Adult Sepsis Patie Q15M (07/29/21 07:45) O2 (07/29/21 07:45) Remove Rings In Anticipation O (07/29/21 07:45) Lactic Acid Analyzer (07/29/21 07:45) Ns Iv 1000 Ml (Sodium Chloride 0.9%) (07/29/21 07:45) Ceftriaxone 1 Gm Pre-Mix (Rocephin 1 Gm (07/29/21 07:45) Azithromycin Injection (Zithromax Inject (07/29/21 07:45) Ed Iv/Invasive Line Start (07/29/21 07:45) Ns Iv 1000 Ml (Sodium Chloride 0.9%) (07/29/21 07:45) Ed Admission (Communication) (07/29/21 07:58) Medications Given in ED Current Medications Medications Dose Ordered Sig/Michelle Route Start Time Stop Time Status Last Admin Dose Admin Albuterol/ Ipratropium 3 ml ONCE ONCE INH 07/29/21 07:30 07/29/21 07:31 DC 07/29/21 07:30 3 ML Aspirin 324 mg ONCE ONCE PO 07/29/21 07:15 07/29/21 07:16 DC 07/29/21 07:21 324 MG Azithromycin 500 mg/Sodium Chloride 255 ml @ 250 mls/hr ONCE ONCE IV 07/29/21 07:45 07/29/21 08:46 DC 07/29/21 08:28 250 MLS/HR Ceftriaxone Sodium/Dextrose 50 ml @ 100 mls/hr ONCE ONCE IV 07/29/21 07:45 07/29/21 08:14 DC 07/29/21 08:28 100 MLS/HR Nitroglycerin 0.4 mg UD PRN SL 07/29/21 07:15 07/29/21 08:47 DC 07/29/21 08:20 0.4 MG Vital Signs/I&O 07/29/21 07/29/21 07/29/21 07:05 07:32 07:50 Temp 36.1 Pulse 107 Resp 11 B/P (MAP) 201/114 (143) Pulse Ox 96 88 O2 Delivery Room Air Nasal Cannula O2 Flow Rate 2.00 Progress Progress Note #1: Time: 07:23 Progress Note We will give him a DuoNeb for his slight wheezing and trial some nitroglycerin for his chest pain as well as given 324 mg of aspirin to chew and swallow. He has some significant risk factors noted in the history and because of that even with a negative initial troponin he would have a heart score of 4 points which is high risk. We will recommend to have an observation stay with cardiac c onsultation. Progress Note #2: Time: 07:48 Progress Note Patient has a white count, tachypnea tachycardia and an infiltrate that goes along with the left sided rhonchi heard. He drops his oxygen sat down to 89%. Suspect that he has a pneumonia. We will continue to work-up his heart. After 2 doses of nitroglycerin his chest pain is down to a 2 out of 10 and his blood pressure is 101/70. We will complete a septic work-up and give him Rocephin and azithromycin. Progress Note #3: Time: 08:04 Progress Note Patient's oxygen saturations went down to 88% with a good Plath he. He was awake. He was able to cough up a mucous plug and they went up to 92%. We put him on 2 L for comfort as he still having a 1 out of 10 chest pain. Will seek inpatient placement and a septic work-up. Initial ECG Impression Date: Jul 29, 2021 Initial ECG Impression Time: 07:07 Initial ECG Rate: 102 Initial ECG Rhythm: S.Tach Initial ECG Intervals: Normal Initial ECG Impression: Normal Initial ECG Comparisson: Unchanged Comment Sinus tachycardia without clinically relevant ST elevation or depression. Diagnostic Imaging Diagonstic Imaging: Xray Plain Films/CT/US/NM/MRI: chest Comments [facility] [place] [place] NAME: NURIS [facility] REC#: [id number] PT STATUS: REG ER : 1970 PHYSICIAN: ALIA PEREZ MD ADMIT DATE: 07/29/21/ER Draft Date of Exam:07/29/21 CHEST 1 VIEW, AP/PA ONLY Portable chest. Compared with the prior examination from July 05, 2020. FINDINGS: There is blunting of the left costophrenic angle suggesting an ongoing left-sided effusion. There is some associated left base consolidation. There are chronic pulmonary interstitial changes within the lungs compatible with underlying COPD. Heart size appears appropriate. There is no pneumothorax. There is no acute osseous abnormality. IMPRESSION: Apparent background features of interstitial lung disease with ongoing blunting of the left costophrenic angle and left base consolidation suggesting a left-sided effusion and possible lower lobe pneumonia. Dictated on workstation # [id number] Dict: 07/29/21726 Trans: 07/29/21 0730 [facility] [id number] Interpreted by: CONCEPCIÓN MANCILLA MD Electronically signed by: Reviewed: Reviewed by Me Departure Communication (Admissions) Time/Spoke to Admitting Phy: 08:00 Discussed the case with Dr. Holden and she agrees to admit the patient for pneumonia, sepsis and chest pain. She will put in queued orders. She would like consult with cardiology. Time/Spoke to Consulting Phy: 07:55 Discussed the case with Dr. Mtz and he agrees to consult on the case for cardiology Impression Primary Impression: Pneumonia Qualified Codes: J18.9 - Pneumonia, unspecified organism Additional Impressions: Sepsis Qualified Codes: A41.9 - Sepsis, unspecified organism; R65.20 - Severe sepsis without septic shock; J96.01 - Acute respiratory failure with hypoxia Chest pain Qualified Codes: R07.9 - Chest pain, unspecified ACS (acute coronary syndrome) Respiratory failure with hypoxia Qualified Codes: J96.01 - Acute respiratory failure with hypoxia COVID-19 Disposition: 09 ADMITTED INPATIENT Condition: Stable Admissions Decision to Admit Reason: Admit from ER (General) Decision to Admit/Date: Jul 29, 2021 Time/Decision to Admit Time: 07:55 Departure-Patient Inst. Referrals: [facility]HAEL (PCP) Primary Care Physician CASEY CHIN (Family) Primary Care Physician ALIA PEREZ Jul 29, 2021 07:17
[2021-07-29 07:21] LABS: BASOPHILS # (AUTO) 0.1 10^3/uL (0.0-0.1); BASOPHILS % (AUTO) 1 % (0-10); EOSINOPHILS # (AUTO) 0.1 10^3/uL (0.0-0.3); EOSINOPHILS % (AUTO) 1 % (0-10); HEMATOCRIT 50 % (40-54); LYMPHOCYTES # (AUTO) 1.6 10^3/uL (1.0-4.0); LYMPHOCYTES % (AUTO) 11 % (12-44); MEAN CORPUSCULAR HEMOGLOBIN 32 pg (25-34); MEAN CORPUSCULAR HGB CONC 34 g/dL (32-36); MEAN CORPUSCULAR VOLUME 94 fL (80-99); MEAN PLATELET VOLUME 10.1 fL (9.0-12.2); MONOCYTES # (AUTO) 1.1 10^3/uL (0.0-1.0); MONOCYTES % (AUTO) 7 % (0-12); NEUTROPHILS # (AUTO) 11.8 10^3/uL (1.8-7.8); NEUTROPHILS % (AUTO) 80 % (42-75); PLATELET COUNT 296 10^3/uL (130-400); WHITE BLOOD COUNT 14.7 10^3/uL (4.3-11.0)
[2021-07-29] MEDS: NITROGLYCERIN 0.4 MG SL TABS BTL 25'S SL PRN ×3 (07:21→08:20)
[2021-07-29] MEDS ORDERED: RT-ALBUTEROL/IPRATROPIUM 3 ML (DUONEB) VIAL INH ONE (07:30)
[2021-07-29 07:31] LABS: ALBUMIN 3.9 GM/DL (3.2-4.5)
--- NOTE | 2021-07-29 07:31 | Diagnostic Imaging Report ---
Portable chest. Compared with the prior examination from July 05, 2020. FINDINGS: There is blunting of the left costophrenic angle suggesting an ongoing left-sided effusion. There is some associated left base consolidation. There are chronic pulmonary interstitial changes within the lungs compatible with underlying COPD. Heart size appears appropriate. There is no pneumothorax. There is no acute osseous abnormality. IMPRESSION: Apparent background features of interstitial lung disease with ongoing blunting of the left costophrenic angle and left base consolidation suggesting a left-sided effusion and possible lower lobe pneumonia. Dictated by: Dictated on workstation # [id number]
[2021-07-29 07:32] LABS: POTASSIUM 3.6 MMOL/L (3.6-5.0)
[2021-07-29 07:33] LABS: CALCIUM 8.8 MG/DL (8.5-10.1); INR 0.9 (0.8-1.4); PROTHROMBIN TIME PATIENT 12.8 SEC (12.2-14.7)
[2021-07-29 07:34] LABS: TOTAL PROTEIN 6.5 GM/DL (6.4-8.2)
[2021-07-29 07:40] LABS: MAGNESIUM 1.9 MG/DL (1.6-2.4)
[2021-07-29] MEDS ORDERED: cefTRIAXone 1 GM PRE-MIX 50 ML IV ONE (07:45)
[2021-07-29] MEDS ORDERED: NS IV 1000 ML 1,000 ML IV SCH ×2 (07:45)
[2021-07-29] MEDS ORDERED: AZITHROMYCIN INJECTION 500 MG in NS (IVPB) 250 ML IV ONE (07:45)
[2021-07-29 07:53] LABS: ANISOCYTOSIS SLIGHT; EOSINOPHILS % (MANUAL) 1 %; LYMPHOCYTES % (MANUAL) 8 %; MONOCYTES % (MANUAL) 7 %; NEUTROPHILS % (MANUAL) 84 %; RBC MORPH NORMAL
[2021-07-29] MEDS ORDERED: HEParin (CATH LAB) 2,000 ML IV ONE (08:28)
[2021-07-29] MEDS ORDERED: LIDOCAINE 1% INJ 20 ML VIAL ONE (08:28)
[2021-07-29] MEDS ORDERED: NS IV 1000 ML 0 ML ONE (08:29)
--- NOTE | 2021-07-29 08:33 | Consultation-Cardiology ---
HPI-Cardiology Cardiology Consultation Date of Consultation 07/29/21 Date of Admission Time Seen by Provider: 08:24 Indication: Chest pain HPI Patient is a 50 y/o male with history of HTN, tobaccoism, presented to the ER this morning with complaints of chest pain and dyspnea, onset around 4am this morning. Reports radiation to left arm this morning. Reports increased dyspnea and nonproductive cough for the last 2-3 days. Currently complaining of chest tightness, was given another SL nitro. Workup done in ER showing probable LLL pneumonia. Home Medications & Allergies Allergies: Coded Allergies: gabapentin (Unverified Adverse Reaction, Intermediate, 11/22/17) pt states med makes him aggressive Home Medication List Reviewed: Yes [id number] Hx Patient Social History Employed/Student: employed Recreational Drug Use: Yes Drug of Choice: marijuana Smoking Status: Current Everyday Smoker Type Used: Cigarettes 2nd Hand Smoke Exposure: Yes Recent Hopitalizations: No Have you traveled recently?: No Alcohol Use?: No Substance type: Marijuana Immunizations Up To Date Tetanus Booster (TDap): Less than 5yrs Date of Influenza Vaccine: Jan 22, 2018 Past Medical History HTN, tobaccoism Family Medical History Significant Family History: No Pertinent Family Hx Family Medical Hx Noncontributory Review of Systems-General Review of Systems Constitutional: see HPI; No chills, No diaphoresis, No fever EENTM: No blurred vision, No double vision Respiratory: see HPI, cough, dyspnea on exertion Cardiovascular: see HPI, chest pain; No edema, No Hx of Intervention, No palpitations, No syncope, No vascular heart diseas, No other Gastrointestinal: no symptoms reported, see HPI Genitourinary: no symptoms reported, see HPI Musculoskeletal: see HPI; No back pain, No joint pain Skin: see HPI; No pruritus, No rash Psychiatric/Neurological: See HPI; Denies Headache, Denies Numbness, Denies P aresthesia All Other Systems Reviewed Negative Unless Noted: Yes Reviewed Test Results Reviewed Test Results Lab Laboratory Tests 07/29/21 07:15: White Blood Count 14.7H, Red Blood Count 5.34, Hemoglobin 17.0, Hematocrit 50, Mean Corpuscular Volume 94, Mean Corpuscular Hemoglobin 32, Mean Corpuscular Hem oglobin Concent 34, Red Cell Distribution Width 14.2, Platelet Count 296, Mean Platelet Volume 10.1, Immature Granulocyte % (Auto) 0, Neutrophils (%) (Auto) 80H, Lymphocytes (%) (Auto) 11L, Monocytes (%) (Auto) 7, Eosinophils (%) (Auto) 1, Basophils (%) (Auto) 1, Neutrophils # (Auto) 11.8H, Lymphocytes # (Auto) 1.6, Monocytes # (Auto) 1.1H, Eosinophils # (Auto) 0.1, Basophils # (Auto) 0.1, Immature Granulocyte # (Auto) 0.1, Neutrophils % (Manual) 84, Lymphocytes % (Manual) 8, Monocytes % (Manual) 7, Eosinophils % (Manual) 1, Anisocytosis SLIGHT, Blood Morphology Comment NORMAL, Prothrombin Time 12.8, INR Comment 0.9, Activated Partial Thromboplast Time 29, D-Dimer 0.57H, Sodium Level 143, Potassium Level 3.6, Chloride Level 102, Carbon Dioxide Level 25, Anion Gap 16H, Blood Urea Nitrogen 12, Creatinine 1.00, Estimat Glomerular Filtration Rate 91, BUN/Creatinine Ratio 12, Glucose Level 150H, Calcium Level 8.8, Corrected Calcium 8.9, Magnesium Level 1.9, Total Bilirubin 1.0, Aspartate Amino Transf (AST/SGOT) 25, Alanine Aminotransferase (ALT/SGPT) 17, Alkaline Phosphatase 78, Myoglobin 91.5, Troponin I < 0.028, Total Protein 6.5, Albumin 3.9, Lipase 17 07/29/21 07:55: Lactic Acid Level 1.07 07/29/21 08:15: 07/29/21 08:22: ECG Impression ECG Initial ECG Impression Date: Jul 29, 2021 Initial ECG Impression Time: 08:28 Initial ECG Rhythm: S.Tach Comment ST with incomplete RBBB Physical Exam Physical Exam Vital Signs Vital Signs - First Documented 07/29/21 07/29/21 07/29/21 07:05 07:32 07:50 Temp 36.1 Pulse 107 Resp 11 B/P (MAP) 201/114 (143) Pulse Ox 96 O2 Delivery Room Air O2 Flow Rate 2.00 Capillary Refill : Less Than 3 Seconds Height, Weight, BMI Height: 6'2.00" Weight: 196lbs. 3.0oz. 88.029272oa; 24.00 BMI Method:Stated General Appearance: No Apparent Distress, WD/WN HEENT: PERRL/EOMI, Pharynx Normal, Moist Mucous Membranes Neck: Full Range of Motion, Normal Inspection Respiratory: Chest Non Tender, No Accessory Muscle Use, No Respiratory Distress, Decreased Breath Sounds, Wheezing (Slight right sided) Cardiovascular: Regular Rate, Rhythm, No Edema, Normal Peripheral Pulses Gastrointestinal: Normal Bowel Sounds, Non Tender, Soft Extremity: Normal Capillary Refill, Normal Inspection, No Pedal Edema Neurologic/Psychiatric: Alert, Oriented x3, No Motor/Sensory Deficits, Normal Mood/Affect Skin: Normal Color, Warm/Dry A/P-Cardiology Admission Diagnosis Chest pain Pneumonia HTN Tobaccoism Assessment/Plan Chest pain, resembling angina. C/o chest pain this morning with radiation to left arm. Initial troponin negative. EKG showing incomplete RBBB. Continues to have chest pain, planning for LHC this morning for further evaluation. On my evaluation patient was having active chest pain, had significant improvement with the nitroglycerin but still having some mild chest discomfort. I gave him additional nitroglycerin I was planning for a cardiac cath and cancelled the procedure due to positive COVID I will continue to monitor Trop and consider a stress test once clinically stable, we can still proceed with a heart if his trop became positive Pneumonia, started on antibiotic, management per medical services Chest x-ray was reviewed showing interstitial lung disease and small pleural effusion with questionable left lower lobe infiltrate Managed by medical team Hypertensive urgency, on arrival to the emergency room blood pressure was over 200/100, starting beta-blockers. Monitor tolerance and response. Questionable HLP, I will evaluate lipid profile. Tobaccoism, educated on the importance of smoking cessation. Thank you for allowing us to participate in the management of Mr. Serrano. This is Amelia Velez PA-C, as a scribe for Dr. Mtz. Patient was seen and evaluated with Amelia, I interviewed and examined the patient, discussed the management plan and agree with the current scribed note I made few modification to the note using italic font Patient is 50 years old gentleman with active chest pain, multiple risk factors. EKG showed incomplete right bundle branch block, cardiac enzymes were negative Management as discussed above AMELIA ROSS Jul 29, 2021 08:33 MORIAH MTZ MD Jul 29, 2021 08:49
--- NOTE | 2021-07-29 08:43 | Conscious Sedation/ASA ---
Conscious Sedation Pre-Proced Time 08:43 ASA Score 3 For ASA 3 and 4: Consider anesthesia and medical clearance. Also, for patients with a history of failed moderate sedation consider anesthesia. Airway Lungs Heart ASA score ASA 1: a normal healthy patient ASA 2: a patient with a mild systemic disease (mid diabetes, controlled hypertension, obesity x ASA 3: a patient with a severe systemic disease that limits activity (angina, COPD, prior Myocardial infarction) ASA 4: a patient with an incapacitating disease that is a constant threat to life (CHF, renal failure) ASA 5: a moribund patient not expected to survive 24 hrs. (ruptured aneurysm) ASA 6: a declared brain- patient whose organs are being harvested. For emergent operations, add the letter E after the classification Mallampati Classification Grade 3 Sedation Plan Analgesia, Amnesia, Plan communicated to team members, Discussed options with patient/fam, Discussed risks with patient/fam The patient is an appropriate candidate to undergo the planned procedure, sedation, and anesthesia. The patient immediately re-assessed prior to indication. MORIAH NIEVES MD Jul 29, 2021 08:43
[2021-07-29] MEDS ORDERED: VERAPAMIL 5 MG/2 ML (CALAN) VIAL IV ONE (08:55)
[2021-07-29] MEDS ORDERED: MIDAZOLAM 5 MG/5 ML (VERSED) VIAL ONE (08:55)
[2021-07-29] MEDS ORDERED: HEParin 1000 UNIT/ML (10ML VIAL) FOR BOLUS ONE (08:55)
[2021-07-29] MEDS ORDERED: fentaNYL INJ 100 MCG/2 ML AMP ONE (08:55)
[2021-07-29] MEDS ORDERED: NITRO DRIP 25000 MCG/D5W 0 ML IV ONE (08:55)
[2021-07-29] MEDS ORDERED: NITROGLYCERIN 0.4 MG SL TABS BTL 25'S SL PRN (10:00)
[2021-07-29] MEDS ORDERED: ONDANSETRON 4 MG/2 ML (SDV) Z0FRAN IVP PRN (10:00)
[2021-07-29] MEDS ORDERED: cefTRIAXone 1 GM PRE-MIX 0 ML IV ONE (10:03)
[2021-07-29] MEDS ORDERED: ENOXAPARIN 100 MG/1 ML (LOVENOX) SYR SC SCH (10:45)
[2021-07-29] MEDS: ENOXAPARIN 80 MG/0.8 ML (LOVENOX) SYR SC SCH ×2 (11:18→23:38)
[2021-07-29] MEDS ORDERED: RT-ALBUTEROL/IPRATROPIUM 3 ML (DUONEB) VIAL INH PRN (11:30)
[2021-07-29] MEDS ORDERED: ASPI-1238 PO (11:35)
[2021-07-29] MEDS ORDERED: IBUP-2473 PO (11:35)
--- NOTE | 2021-07-29 11:46 | History & Physical ---
HPI History of Present Illness: Woke up this morning at 4 am with chest pain, left arm pain and shortness of breath. He tried to go to work, but pain persisted. He states his blood is "thick" and that stresses his heart so he has to take a baby aspirin every few days. Currently has no pain. He thinks he has a slight stroke in the past, his right foot was "" couldn't pick it up around 2 years ago but it did get better- took around 6 months. No previous history of stenting. He reports every once in a while like last week had one that lasted about 30 minutes, would cover up with blanket and after a bit get hot. Hasn't checked temperature at home. Admits "smoker's cough" states it hasn't changed recently, every once in a while has yellow phlegm but usually clear. Admits mild fatigue. Denies known recent COVID19 exposure. He has not had any COVID19 vaccines. He states breathing feels pretty good now, not really short of breath now. Date seen by provider: Jul 29, 2021 Time Seen by Provider: 11:46 Attending Physician Jessica Holden MD PCP Center/[facility] [place] Consult Date of Admission Jul 29, 2021 at 08:01 Home Medications Home Medications Reviewed patient Home Medication Reconciliation performed by pharmacy medication reconciliations pet care technician and/or nursing. Patients Allergies have been reviewed. Allergies Coded Allergies: gabapentin (Unverified Adverse Reaction, Intermediate, 11/22/17) pt states med makes him aggressive [id number] Hx Patient Social History Employed/Student: employed Drug of Choice: marijuana Smoking Status: Current Everyday Smoker (1/2 ppd) 2nd Hand Smoke Exposure: Yes Recent Hopitalizations: No Alcohol Use?: Yes ("maybe a 6 pack on the weekend") Substance type: Marijuana Tobacco type used: Cigarettes Have you traveled recently?: No Immunizations Up To Date Tetanus Booster (TDap): Less than 5yrs Influenza Vaccine Up-to-Date: No; Not Current First/Initial COVID19 Vaccinat: not vaccinated Past Medical History PMHx: Anxiety Tobacco Use SurgHx: Left knee surgery x 3 Right shoulder surgery 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 Family Medical History Significant Family History: Cancer (mother small cell lung cancer, ), COPD, Diabetes (father), Hypertension Review of Systems ([facility]) Constitutional: chills EENTM: nose congestion (chronic- multiple fractures); No throat pain Respiratory: see HPI Cardiovascular: see HPI Gastrointestinal: No abdominal pain, No constipation, No diarrhea, No nausea, No vomiting Genitourinary: No dysuria Musculoskeletal: joint pain (chronic) Skin: No rash Psychiatric/Neurological: Denies Headache Reviewed Test Results Reviewed Test Results Lab Laboratory Tests Test 07/29/21 07:15 07/29/21 07:55 07/29/21 08:22 Range/Units White Blood Count 14.7 H 4.3-11.0 10^3/uL Red Blood Count 5.34 4.30-5.52 10^6/uL Hemoglobin 17.0 13.3-17.7 g/dL Hematocrit 50 40-54 % Mean Corpuscular Volume 94 80-99 fL Mean Corpuscular Hemoglobin 32 25-34 pg Mean Corpuscular Hemoglobin Concent 34 32-36 g/dL Red Cell Distribution Width 14.2 10.0-14.5 % Platelet Count 296 130-400 10^3/uL Mean Platelet Volume 10.1 9.0-12.2 fL Immature Granulocyte % (Auto) 0 % Neutrophils (%) (Auto) 80 H 42-75 % Lymphocytes (%) (Auto) 11 L 12-44 % Monocytes (%) (Auto) 7 0-12 % Eosinophils (%) (Auto) 1 0-10 % Basophils (%) (Auto) 1 0-10 % Neutrophils # (Auto) 11.8 H 1.8-7.8 10^3/uL Lymphocytes # (Auto) 1.6 1.0-4.0 10^3/uL Monocytes # (Auto) 1.1 H 0.0-1.0 10^3/uL Eosinophils # (Auto) 0.1 0.0-0.3 10^3/uL Basophils # (Auto) 0.1 0.0-0.1 10^3/uL Immature Granulocyte # (Auto) 0.1 0.0-0.1 10^3/uL Neutrophils % (Manual) 84 % Lymphocytes % (Manual) 8 % Monocytes % (Manual) 7 % Eosinophils % (Manual) 1 % Anisocytosis SLIGHT Blood Morphology Comment NORMAL Prothrombin Time 12.8 12.2-14.7 SEC INR Comment 0.9 0.8-1.4 Activated Partial Thromboplast Time 29 24-35 SEC D-Dimer 0.57 H 0.00-0.49 UG/ML Sodium Level 143 135-145 MMOL/L Potassium Level 3.6 3.6-5.0 MMOL/L Chloride Level 102 98-107 MMOL/L Carbon Dioxide Level 25 21-32 MMOL/L Anion Gap 16 H 5-14 MMOL/L Blood Urea Nitrogen 12 7-18 MG/DL Creatinine 1.00 0.60-1.30 MG/DL Estimat Glomerular Filtration Rate 91 BUN/Creatinine Ratio 12 Glucose Level 150 H 70-105 MG/DL Calcium Level 8.8 8.5-10.1 MG/DL Corrected Calcium 8.9 8.5-10.1 MG/DL Magnesium Level 1.9 1.6-2.4 MG/DL Total Bilirubin 1.0 0.1-1.0 MG/DL Aspartate Amino Transf (AST/SGOT) 25 5-34 U/L Alanine Aminotransferase (ALT/SGPT) 17 0-55 U/L Alkaline Phosphatase 78 40-136 U/L Myoglobin 91.5 10.0-92.0 NG/ML Troponin I < 0.028 <0.028 NG/ML Total Protein 6.5 6.4-8.2 GM/DL Albumin 3.9 3.2-4.5 GM/DL Lipase 17 8-78 U/L Lactic Acid Level 1.07 0.50-2.00 MMOL/L Influenza Type A (RT-PCR) Not Detected Not Detecte Influenza Type B (RT-PCR) Not Detected Not Detecte SARS-CoV-2 RNA (RT-PCR) Detected H Not Detecte Radiology CXR 07/29/21: "IMPRESSION: Apparent background features of interstitial lung disease with ongoing blunting of the left costophrenic angle and left base consolidation suggesting a left-sided effusion and possible lower lobe pneumonia." Physical Exam-([facility]) Physical Exam Vital Signs VS - Last 72 Hours, by Label 07/29/21 07/29/21 07/29/21 07/29/21 07:05 07:32 07:50 08:45 Temp 36.1 Pulse 107 95 Resp 11 12 B/P (MAP) 201/114 (143) 156/77 Pulse Ox 96 88 95 O2 Delivery Room Air Nasal Cannula Nasal Cannula O2 Flow Rate 2.00 2.00 07/29/21 07/29/21 07/29/21 07/29/21 10:24 10:50 10:52 10:53 Temp 35.8 Pulse 88 88 74 Resp 18 B/P (MAP) 157/72 (100) 128/88 (101) 132/78 (96) Pulse Ox 91 93 93 O2 Delivery Nasal Cannula Nasal Cannula Nasal Cannula Nasal Cannula O2 Flow Rate 1.00 1.00 1.00 1.00 07/29/21 07/29/21 11:23 11:42 Temp 35.8 Pulse 74 109 B/P (MAP) 125/75 (92) Pulse Ox 93 94 O2 Delivery Nasal Cannula O2 Flow Rate 1.00 Capillary Refill : Less Than 3 Seconds General Appearance: no apparent distress Respiratory: decreased breath sounds (both bases) Cardiovascular: no murmur, tachycardia (occasional irregular beat) Gastrointestinal: normal bowel sounds, non tender, soft Extremities: no pedal edema Neurologic/Psychiatric: alert, normal mood/affect Skin: normal color, warm/dry Assessment/Plan Assessment/Plan Admission Status: Inpatient Order (span 2 midnights) Reason for Inpatient Admission: suspected bacterial Pneumonia with covid19 and chest pain suspicious for cardiac etiology (1) Pneumonia Status: Acute Assessment & Plan: Azithromycin and ceftriaxone Qualifiers: Qualified Codes: J18.9 - Pneumonia, unspecified organism (2) COVID-19 Status: Acute Assessment & Plan: Uncertain timing of onset without symptoms clearly attributable to COVID vs underlying pneumonia, given he is already requiring oxygen but unclear whether from COVID or bacterial pneumonia or cardiac cause, will treat with dexamethasone for now. (3) Sepsis Status: Acute Assessment & Plan: Secondary to pneumonia Qualifiers: Qualified Codes: A41.9 - Sepsis, unspecified organism (4) Chest pain Status: Acute Assessment & Plan: Suspicious for cardiac etiology, initial torponin normal and EKG without ST changes, appreciate Cardiology recommendations. Qualifiers: Qualified Codes: R07.9 - Chest pain, unspecified (5) Elevated d-dimer Status: Acute Assessment & Plan: Minimally elevated, may be due to COVID. (6) DVT prophylaxis Status: Acute Assessment & Plan: Enoxaparin JESSICA HOLDEN MD Jul 29, 2021 11:46
[2021-07-29] MEDS: dexAMETHasone 6 MG TAB (DECADRON) PO SCH (13:21)
[2021-07-29] MEDS ORDERED: RT-ALBUTEROL/IPRATROPIUM 3 ML (DUONEB) VIAL INH SCH (15:00)
[2021-07-29] MEDS ORDERED: RT-ALBUTEROL HFA 8.5 GM INHALER IH PRN (15:30)
[2021-07-29] MEDS ORDERED: RT-ALBUTEROL SULF 2.5 MG/3 ML PRE-MIX VIAL IH PRN (16:00)
[2021-07-29] MEDS ORDERED: RT-ALBUTEROL HFA 8.5 GM INHALER IH SCH (21:00)
[2021-07-29] MEDS ORDERED: RT-ALBUTEROL SULF 2.5 MG/3 ML PRE-MIX VIAL IH SCH (21:00)
[2021-07-30] MEDS ORDERED: RT-ALBUTEROL HFA 8.5 GM INHALER IH PRN
[2021-07-30 04:26] VITALS: BP 191/94
[2021-07-30] MEDS: dexAMETHasone 6 MG TAB (DECADRON) PO SCH (05:07)
[2021-07-30] MEDS ORDERED: ISOSORBIDE MONONITRATE 30 MG (IMDUR) TAB PO ONE (05:30)
[2021-07-30 05:41] LABS: HEMATOCRIT 49 % (40-54); HEMOGLOBIN 16.4 g/dL (13.3-17.7); MEAN CORPUSCULAR HEMOGLOBIN 32 pg (25-34); MEAN CORPUSCULAR HGB CONC 34 g/dL (32-36); MEAN CORPUSCULAR VOLUME 96 fL (80-99); MEAN PLATELET VOLUME 10.8 fL (9.0-12.2); PLATELET COUNT 268 10^3/uL (130-400); WHITE BLOOD COUNT 15.4 10^3/uL (4.3-11.0)
[2021-07-30 06:00] LABS: CHLORIDE 105 MMOL/L (98-107); POTASSIUM 5.3 MMOL/L (3.6-5.0); SODIUM 142 MMOL/L (135-145)
[2021-07-30 06:02] LABS: CALCIUM 9.1 MG/DL (8.5-10.1); GLUCOSE 141 MG/DL (70-105); TRIGLYCERIDES 123 MG/DL (<150); VLDL CHOLESTEROL 25 MG/DL (5-40)
[2021-07-30 06:04] LABS: CARBON DIOXIDE 25 MMOL/L (21-32)
[2021-07-30 06:06] LABS: CREATININE SERUM 0.84 MG/DL (0.60-1.30); GFR ESTIMATED 104
[2021-07-30 06:07] LABS: BUN/CREATININE RATIO 14; CHOLESTEROL 170 MG/DL (< 200)
[2021-07-30 06:08] LABS: HDL CHOLESTEROL 61 MG/DL (40-60)
[2021-07-30 07:51] VITALS: BP 127/85
[2021-07-30] MEDS: meTOproloL SUCCINATE 50 MG (TOPROL XL) TAB PO SCH (09:00)
[2021-07-30] MEDS ORDERED: AZITHROMYCIN INJECTION 500 MG in NS (IVPB) 250 ML IV SCH (09:00)
[2021-07-30] MEDS: ASPIRIN E.C. 81 MG (ECOTRIN) TAB PO SCH (09:03)
[2021-07-30] MEDS: NICOTINE 21 MG (NICODERM) PATCH TD SCH (11:08)
[2021-07-30] MEDS: ENOXAPARIN 80 MG/0.8 ML (LOVENOX) SYR SC SCH ×2 (11:08→22:56)
[2021-07-30] MEDS: cefTRIAXone 1 GM PRE-MIX 50 ML IV SCH (11:09)
[2021-07-30 11:44] VITALS: BP 137/74
--- NOTE | 2021-07-30 15:14 | Progress Note ---
Subjective Subjective/Events-last exam States he is feeling okay, still has some chest tightness but improved. Still on 1 lpm supplemental oxygen today. He notes that he has been sleeping in his car the last few days and is between housing situations with no clear place to go on d/c. Focused Exam Lactate Level 07/29/21 07:55: Lactic Acid Level 1.07 Objective Exam Last Set of Vital Signs Vital Signs Date Time Temp Pulse Resp B/P (MAP) Pulse Ox O2 Delivery O2 Flow Rate FiO2 07/30/21 14:48 95 Room Air 07/30/21 13:00 93 07/30/21 11:44 37.2 20 137/74 (95) 07/30/21 09:00 1.00 Capillary Refill : Less Than 3 Seconds I&O Intake and Output 07/30/21 00:00 Intake Total 2080 ml Balance 2080 ml Intake Oral 2030 ml IV Total 50 ml # Voids 5 # Bowel Movements 3 Daily Weight Change No General: Alert, No Acute Distress Lungs: Clear to Auscultation, Normal Air Movement Heart: Regular Rate, No Murmurs Extremities: No Edema Neuro: Normal Speech Results/Procedures Lab Laboratory Tests 07/30/21 05:30: White Blood Count 15.4H, Red Blood Count 5.10, Hemoglobin 16.4, Hematocrit 49, Mean Corpuscular Volume 96, Mean Corpuscular Hemoglobin 32, Mean Corpuscular Hemoglobin Concent 34, Red Cell Distribution Width 14.0, Platelet Count 268, Mean Platelet Volume 10.8, Sodium Level 142, Potassium Level 5.3H, Chloride Level 105, Carbon Dioxide Level 25, Anion Gap 12, Blood Urea Nitrogen 12, Creatinine 0.84, Estimat Glomerular Filtration Rate 104, BUN/Creatinine Ratio 14, Glucose Level 141H, Calcium Level 9.1, Troponin I < 0.028, Triglycerides Level 123, Cholesterol Level 170, LDL Cholesterol Direct 89, VLDL Cholesterol 25, HDL Cholesterol 61H Radiology CXR 07/29/21: "IMPRESSION: Apparent background features of interstitial lung disease with ongoing blunting of the left costophrenic angle and left base consolidation suggesting a left-sided effusion and possible lower lobe pneumonia." Assessment/Plan Assessment/Plan (1) Pneumonia Status: Acute Assessment & Plan: Azithromycin and ceftriaxone Qualifiers: Qualified Codes: J18.9 - Pneumonia, unspecified organism (2) COVID-19 Status: Acute Assessment & Plan: Uncertain timing of onset without symptoms clearly attributable to COVID vs underlying pneumonia, given he is already requiring oxygen but unclear whether from COVID or bacterial pneumonia or cardiac cause, will treat with dexamethasone for now. (3) Sepsis Status: Acute Assessment & Plan: Secondary to pneumonia Qualifiers: Qualified Codes: A41.9 - Sepsis, unspecified organism (4) Chest pain Status: Acute Assessment & Plan: Suspicious for cardiac etiology, initial torponin normal and EKG without ST changes, appreciate Cardiology recommendations, given stability, plan for work-up after resolution of pneumonia. Qualifiers: Qualified Codes: R07.9 - Chest pain, unspecified (5) Elevated d-dimer Status: Acute Assessment & Plan: Minimally elevated, may be due to COVID. (6) DVT prophylaxis Status: Acute Assessment & Plan: Enoxaparin JESSICA NELSON MD Jul 30, 2021 15:14
--- NOTE | 2021-07-30 15:22 | Cardiology Progress Note ---
Subjective Date Seen by Provider: Jul 30, 2021 Time Seen by Provider: 15:19 Subjective/Events-last exam Patient was seen today, I did not examine him or walk to his room. I visited with his nurse and with Dr. Holden and reviewed his records. Review of Systems General: No Chills, No Night Sweats, No Fatigue, No Malaise, No Appetite, No Other HEENT: No Head Aches, No Visual Changes, No Eye Pain, No Ear Pain, No Dysphasia, No Sinus Congestion, No Post Nasal Drip, No Sore Throat, No Other Pulmonary: No Dyspnea, No Cough, No Pleuritic Chest Pain, No Other Cardiovascular: No: Chest Pain, Palpitations, Orthopnea, Paroxysmal Noc. Dyspnea, Edema, Lt Headedness, Other Focused Exam Lactate Level 07/29/21 07:55: Lactic Acid Level 1.07 Objective-Cardiology Exam Last Set of Vital Signs Vital Signs 07/30/21 07/30/21 07/30/21 07/30/21 09:00 11:44 13:00 14:48 Temp 37.2 Pulse 93 Resp 20 B/P (MAP) 137/74 (95) Pulse Ox 95 O2 Delivery Room Air O2 Flow Rate 1.00 I&O Intake and Output 07/30/21 00:00 Intake Total 2080 ml Balance 2080 ml Intake Oral 2030 ml IV Total 50 ml # Voids 5 # Bowel Movements 3 Daily Weight Change No General: Alert, No Acute Distress HEENT: Atraumatic Neck: No Thyromegaly Heart: Regular Rate Abdomen: No Masses Neuro: Normal Speech Psych/Mental Status: Mental Status NL Results Lab Laboratory Tests 07/30/21 05:30 A/P-Cardiology Admission Diagnosis Chest pain Pneumonia HTN Tobaccoism Assessment/Plan Chest pain, resembling angina. EKG and cardiac enzymes did not show any acute abnormality Planning for stress test as an outpatient, continue to monitor Sepsis, COVID-19 infection. Receiving antibiotic and prednisone. Monitor I Dr. Holden Hypertensive urgency, on arrival to the emergency room blood pressure was over 200/100, blood pressure has been better. Continue to monitor. Lipid profile was done on July 30, 2021 showing normal cholesterol of 170, triglyceride 123, HDL 61, HDL 79. Continue to monitor Tobaccoism, educated on the importance of smoking cessation. MORIAH NIEVES MD Jul 30, 2021 15:22
[2021-07-30 16:21] VITALS: BP 147/75
[2021-07-30 20:00] VITALS: BP 170/88
[2021-07-30 23:28] VITALS: BP 152/82
[2021-07-31 04:50] VITALS: BP 142/92
[2021-07-31] MEDS: dexAMETHasone 6 MG TAB (DECADRON) PO SCH (05:06)
[2021-07-31 05:48] LABS: HEMATOCRIT 50 % (40-54); HEMOGLOBIN 17.1 g/dL (13.3-17.7); MEAN CORPUSCULAR HEMOGLOBIN 32 pg (25-34); MEAN CORPUSCULAR HGB CONC 34 g/dL (32-36); MEAN CORPUSCULAR VOLUME 96 fL (80-99); MEAN PLATELET VOLUME 10.6 fL (9.0-12.2); PLATELET COUNT 262 10^3/uL (130-400); WHITE BLOOD COUNT 16.7 10^3/uL (4.3-11.0)
[2021-07-31 06:21] LABS: POTASSIUM 4.9 MMOL/L (3.6-5.0)
[2021-07-31 06:26] LABS: CREATININE SERUM 0.9 MG/DL (0.60-1.30)
[2021-07-31] MEDS ORDERED: CEFD300C3 PO (08:30)
[2021-07-31] MEDS ORDERED: LISI10TA25 PO (08:30)
[2021-07-31 08:46] VITALS: BP 156/69
[2021-07-31] MEDS ORDERED: NICOTINE 14 MG (NICODERM) PATCH TD SCH (09:00)
[2021-07-31] MEDS: cefTRIAXone 1 GM PRE-MIX 50 ML IV SCH (09:23)
[2021-07-31] MEDS: NICOTINE 21 MG (NICODERM) PATCH TD SCH (09:23)
[2021-07-31] MEDS: ASPIRIN E.C. 81 MG (ECOTRIN) TAB PO SCH (09:23)
[2021-07-31] MEDS: AZITHROMYCIN 250 MG TAB (ZITHROMAX) PO SCH (09:23)
[2021-07-31] MEDS: meTOproloL SUCCINATE 50 MG (TOPROL XL) TAB PO SCH (09:23)
[2021-07-31 11:25] VITALS: BP 147/78
--- NOTE | 2021-07-31 13:15 | Cardiology Progress Note ---
Subjective Date Seen by Provider: Jul 31, 2021 Time Seen by Provider: 13:13 Subjective/Events-last exam Patient was seen, I did not examine the patient. I visited with the nurse and reviewed his record He is not having any chest pain today, still having cough and some discomfort with the coughing. Review of Systems General: No Chills, No Night Sweats, No Fatigue, No Malaise, No Appetite, No Other HEENT: No Head Aches, No Visual Changes, No Eye Pain, No Ear Pain, No Dysphasia, No Sinus Congestion, No Post Nasal Drip, No Sore Throat, No Other Pulmonary: Dyspnea, Cough; No Pleuritic Chest Pain, No Other Cardiovascular: Chest Pain; No: Palpitations, Orthopnea, Paroxysmal Noc. Dyspnea, Edema, Lt Headedness, Other Focused Exam Lactate Level 07/29/21 07:55: Lactic Acid Level 1.07 Objective-Cardiology Exam Last Set of Vital Signs Vital Signs 07/30/21 07/31/21 09:00 11:25 Temp 36.2 Pulse 82 Resp 18 B/P (MAP) 147/78 (101) Pulse Ox 99 O2 Delivery Room Air O2 Flow Rate 1.00 I&O Intake and Output 07/31/21 00:00 Intake Total 3490 ml Balance 3490 ml Intake Oral 3490 ml # Voids 11 # Bowel Movements 2 General: Alert, No Acute Distress HEENT: Atraumatic Neck: No Thyromegaly Lungs: Clear to Auscultation, Normal Air Movement Heart: Regular Rate Abdomen: No Masses Extremities: No Cyanosis, No Edema, Normal Pulses, No Tenderness/Swelling Skin: No Rashes, No Breakdown, No Significant Lesion Neuro: Normal Speech Psych/Mental Status: Mental Status NL Results Lab Laboratory Tests 07/31/21 04:13 07/31/21 05:31 A/P-Cardiology Admission Diagnosis Chest pain Pneumonia HTN Tobaccoism Assessment/Plan Chest pain, resembling angina. EKG and cardiac enzymes did not show any acute abnormality Planning for stress test as an outpatient Sepsis, COVID-19 infection, pneumonia. Receiving antibiotic and prednisone. Managed by primary care physician Hypertensive urgency, on arrival to the emergency room blood pressure was over 200/100, blood pressure has been better. Continue to monitor. Lipid profile was done on July 30, 2021 showing normal cholesterol of 170, triglyceride 123, HDL 61, HDL 79. Continue to monitor Tobaccoism, educated on the importance of smoking cessation. MORIAH NIEVES MD Jul 31, 2021 13:15
[2021-07-31] MEDS: ENOXAPARIN 80 MG/0.8 ML (LOVENOX) SYR SC SCH ×2 (13:46→23:13)
--- NOTE | 2021-07-31 14:49 | Discharge Summary ---
Discharge Summary Hospital Course Problems/Diagnosis: (1) Pneumonia Status: Acute Assessment & Plan: Azithromycin and ceftriaxone inpatient, discharged with cefdinir and not requiring supplemental oxygen. Qualifiers: Qualified Codes: J18.9 - Pneumonia, unspecified organism (2) COVID-19 Status: Acute Assessment & Plan: Uncertain timing of onset without symptoms clearly attributable to COVID vs underlying pneumonia, given he is already requiring oxygen but unclear whether from COVID or bacterial pneumonia or cardiac cause, treated with dexamethasone while inpatient. 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 (3) Sepsis Status: Resolved Resolution Date/Time: 07/31/21 @ 14:47 Assessment & Plan: Secondary to pneumonia Qualifiers: Qualified Codes: A41.9 - Sepsis, unspecified organism (4) Chest pain Status: Resolved Resolution Date/Time: 07/31/21 @ 14:47 Assessment & Plan: Suspicious for cardiac etiology, initial torponin normal and EKG without ST changes, appreciate Cardiology recommendations, given stability, plan for work-up after resolution of pneumonia. Qualifiers: Qualified Codes: R07.9 - Chest pain, unspecified (5) Elevated d-dimer Status: Acute Assessment & Plan: Minimally elevated, may be due to COVID. (6) Homelessness Status: Acute Assessment & Plan: financial services education consultant met with patient and provided information for some contacts and he was working with [employer] and [employer] services to assist. Hospital Course Date of Admission: Jul 29, 2021 at 08:01 Admission Diagnosis : Family Physician/Provider: Peterson Hernandez Date of Discharge: 07/31/21 Discharge Diagnosis: See problem list Hospital Course: See problem list Labs and Pending Lab Test: Laboratory Tests 07/31/21 04:13: White Blood Count 16.7H, Red Blood Count 5.27, Hemoglobin 17.1, Hematocrit 50, Mean Corpuscular Volume 96, Mean Corpuscular Hemoglobin 32, Mean Corpuscular He moglobin Concent 34, Red Cell Distribution Width 14.2, Platelet Count 262, Mean Platelet Volume 10.6 07/31/21 05:31: Sodium Level 144, Potassium Level 4.9, Chloride Level 104, Carbon Dioxide Level 27, Anion Gap 13, Blood Urea Nitrogen 10, Creatinine 0.90, Estimat Glomerular Filtration Rate 102, BUN/Creatinine Ratio 11, Glucose Level 99, Calcium Level 9.0 Microbiology 07/29/21 Blood Culture - Preliminary, Resulted No growth Home Meds Active Cefdinir 300 Mg Capsule 300 Mg PO BID Lisinopril 10 Mg Tablet 10 Mg PO DAILY Reported Ibuprofen 200 Mg Tablet 200 Mg PO BID Aspirin EC (Aspirin) 81 Mg Tablet.dr 81 Mg PO Q72H Assessment/Pt DC Instructions Follow up with Cardiology after quarantine which ends 08/09. Follow up with primary provider within a week. Discharge Diet: Cardiac Diet Activity as Tolerated: Yes Discharge Physical Examination Allergies: Coded Allergies: gabapentin (Unverified Adverse Reaction, Intermediate, 11/22/17) pt states med makes him aggressive General Appearance: No Apparent Distress, WD/WN Respiratory: Lungs Clear, Normal Breath Sounds Cardiovascular: Regular Rate, Rhythm, No Murmur Skin: Normal Color, Warm/Dry Neurologic/Psychiatric: Alert JESSICA NELSON MD Jul 31, 2021 14:49
[2021-07-31 19:50] VITALS: BP 136/94
[2021-07-31 23:15] VITALS: BP 142/84
[2021-08-01] MEDS: dexAMETHasone 6 MG TAB (DECADRON) PO SCH (06:10)
[2021-08-01 08:31] VITALS: BP 137/80
[2021-08-01] MEDS ORDERED: NICOTINE PATCH REMOVAL TP SCH (08:59)
[2021-08-01] MEDS: cefTRIAXone 1 GM PRE-MIX 50 ML IV SCH (09:50)
[2021-08-01] MEDS: NICOTINE 21 MG (NICODERM) PATCH TD SCH (09:50)
[2021-08-01] MEDS: ASPIRIN E.C. 81 MG (ECOTRIN) TAB PO SCH (09:57)
[2021-08-01] MEDS: AZITHROMYCIN 250 MG TAB (ZITHROMAX) PO SCH (09:57)
[2021-08-01] MEDS: meTOproloL SUCCINATE 50 MG (TOPROL XL) TAB PO SCH (09:57)
[2021-08-01] MEDS: ENOXAPARIN 80 MG/0.8 ML (LOVENOX) SYR SC SCH (10:43)
== END 2021-08-01 11:47 | disposition home or self-care (01) | DRG 871 ==
LOC: EDUNIT# 07:02 → ER 07:04 → 4TH 08:01 → CSD 08:49 → 4TH 10:23
PROVIDERS: ADMIT Family Medicine; ATTEND Family Medicine
DX: A41.89 Other specified sepsis (principal); U07.1 COVID-19; J12.82 Pneumonia due to coronavirus disease 2019; J15.9 Unspecified bacterial pneumonia; J96.01 Acute respiratory failure with hypoxia; I16.0 Hypertensive urgency; I10 Essential (primary) hypertension; Z79.82 Long term (current) use of aspirin; Z79.899 Other long term (current) drug therapy; M19.90 Unspecified osteoarthritis, unspecified site; G89.29 Other chronic pain; M54.9 Dorsalgia, unspecified; F41.9 Anxiety disorder, unspecified; F17.210 Nicotine dependence, cigarettes, uncomplicated; Z89.022 Acquired absence of left finger(s); I20.9 Angina pectoris, unspecified
CPT/HCPCS: 36415; 71045; 80048; 80053; 80061; 83605; 83690; 83735; 83874; 84484; 85007; 85027; 85379; 85610; 85730; 87040; 87636; 93005; 94640; 94760

== ENCOUNTER 2022-03-19 12:24 | Emergency (ER) | payer SELFPAY ==
[~2022-03-19] VITALS: Ht 187 cm; Wt 83.0 kg
[~2022-03-19 12:24] MED LIST changes: +CEFD300C3 PO; +IBUP-2473 PO; +LISI10TA25 PO
--- NOTE | 2022-03-19 13:56 | ED Abdominal Pain ---
General Chief Complaint: Abdominal/GI Problems Stated Complaint: LOWER ABD PAIN Nursing Triage Note: ARRIVED VIA AMB TO TRIAGE WITH COMPLAINTS OF MID LOW ABD PAIN THAT GOES INTO THE TESTICLES. PT STATES IT STARTED ON THURSDAY AND HAD A FEVER ET FEVER BROKE ON THURSDAY. PT NOTIFIED OF BUSY ER WITH POSSIBLE LONG WAIT TIME. Source of Information: Patient Exam Limitations: No Limitations History of Present Illness Date Seen by Provider: Mar 19, 2022 Time Seen by Provider: 13:54 Initial Comments To ER with suprapubic abdominal pain that goes into the left testicle that began 2 days ago. He had a fever which has subsequently resolved. Denies nausea or vomiting. Denies any bowel changes. Sometimes he does have burning on urination. Timing/Duration: 2-3 Days Severity/Quality: Moderate Location: Suprapubic Radiation: No Radiation Activities at Onset: None Modifying Factors: Improves With Analgesics Allergies and Home Medications Allergies Coded Allergies: gabapentin (Unverified Adverse Reaction, Intermediate, 11/22/17) pt states med makes him aggressive Patient Home Medication List Home Medication List Reviewed: Yes Aspirin (Aspirin EC) 81 Mg Tablet.dr, 81 MG PO Q72H, (Reported) Entered as Reported by: DUC LAW on 07/29/21 1135 Cefdinir (Cefdinir) 300 Mg Capsule, 300 MG PO BID Prescribed by: JESSICA NELSON on 07/31/21 0830 Ibuprofen (Ibuprofen) 200 Mg Tablet, 200 MG PO BID, (Reported) Entered as Reported by: DUC LAW on 07/29/21 1135 Lisinopril (Lisinopril) 10 Mg Tablet, 10 MG PO DAILY Prescribed by: JESSICA NELSON on 07/31/21 0830 Review of Systems Review of Systems Constitutional: see HPI EENTM: No Symptoms Reported Respiratory: No Symptoms Reported Cardiovascular: No Symptoms Reported Gastrointestinal: See HPI, Abdominal Pain Genitourinary: See HPI, Burning, Pain Musculoskeletal: no symptoms reported Skin: no symptoms reported Psychiatric/Neurological: No Symptoms Reported Endocrine: No Symptoms Reported Hematologic/Lymphatic: No Symptoms Reported Past Dvgvhup-Ytfwvz-Ucoxpd Hx Patient Social History Smoking Status: Current Everyday Smoker Substance use?: Yes Substance type: Marijuana Alcohol Use?: No Immunizations Up To Date Tetanus Booster (TDap): Less than 5yrs First/Initial COVID19 Vaccinat: not vaccinated Seasonal Allergies Seasonal Allergies: No Past Medical History Surgeries: Yes Amputation, Orthopedic Respiratory: No Cardiac: No Neurological: No Reproductive Disorders: No Genitourinary: No Gastrointestinal: No Musculoskeletal: Yes Arthritis, Chronic Back Pain, Fractures Endocrine: No HEENT: No (POOR DENTITION) Cancer: No Psychosocial: Yes Anxiety Integumentary: No Blood Disorders: No Family Medical History Cancer, COPD, Diabetes, Hypertension Physical Exam Vital Signs Vital Signs - First Documented 03/19/22 12:35 Temp 36.6 Pulse 84 Resp 16 B/P (MAP) 199/107 (137) Pulse Ox 97 O2 Delivery Room Air Capillary Refill : Less Than 3 Seconds Height/Weight/BMI Height: 6'2.00" Weight: 196lbs. 3.0oz. [id number]; 23.00 BMI Method:Stated General Appearance: WD/WN, no apparent distress HEENT: PERRL/EOMI, normal ENT inspection Respiratory: no respiratory distress, no accessory muscle use Cardiovascular: regular rate, rhythm, no murmur Gastrointestinal: normal bowel sounds, non tender, soft Genital/Rectal: other (Left scrotum normal in appearance, the left testicle is normal in size and lie, tender to palpation posteriorly.) Extremities: normal range of motion, non-tender Neurologic/Psychiatric: alert, normal mood/affect, oriented x 3 Skin: normal color, warm/dry Progress/Results/Core Measures Results/Orders Lab Results Laboratory Tests Test 03/19/22 13:48 Range/Units White Blood Count 12.2 H 4.3-11.0 10^3/uL Red Blood Count 5.49 4.30-5.52 10^6/uL Hemoglobin 18.0 H 13.3-17.7 g/dL Hematocrit 53 40-54 % Mean Corpuscular Volume 96 80-99 fL Mean Corpuscular Hemoglobin 33 25-34 pg Mean Corpuscular Hemoglobin Concent 34 32-36 g/dL Red Cell Distribution Width 13.4 10.0-14.5 % Platelet Count 284 130-400 10^3/uL Mean Platelet Volume 10.6 9.0-12.2 fL Immature Granulocyte % (Auto) 0 % Neutrophils (%) (Auto) 72 42-75 % Lymphocytes (%) (Auto) 17 12-44 % Monocytes (%) (Auto) 8 0-12 % Eosinophils (%) (Auto) 2 0-10 % Basophils (%) (Auto) 1 0-10 % Neutrophils # (Auto) 8.8 H 1.8-7.8 10^3/uL Lymphocytes # (Auto) 2.1 1.0-4.0 10^3/uL Monocytes # (Auto) 1.0 0.0-1.0 10^3/uL Eosinophils # (Auto) 0.2 0.0-0.3 10^3/uL Basophils # (Auto) 0.1 0.0-0.1 10^3/uL Immature Granulocyte # (Auto) 0.0 0.0-0.1 10^3/uL Sodium Level 141 135-145 MMOL/L Potassium Level 4.2 3.6-5.0 MMOL/L Chloride Level 102 98-107 MMOL/L Carbon Dioxide Level 25 21-32 MMOL/L Anion Gap 14 5-14 MMOL/L Blood Urea Nitrogen 12 7-18 MG/DL Creatinine 0.94 0.60-1.30 MG/DL Estimat Glomerular Filtration Rate 97 BUN/Creatinine Ratio 13 Glucose Level 91 70-105 MG/DL Calcium Level 9.7 8.5-10.1 MG/DL Corrected Calcium 9.3 8.5-10.1 MG/DL Total Bilirubin 0.7 0.1-1.0 MG/DL Aspartate Amino Transf (AST/SGOT) 18 5-34 U/L Alanine Aminotransferase (ALT/SGPT) 18 0-55 U/L Alkaline Phosphatase 75 40-136 U/L Total Protein 7.8 6.4-8.2 GM/DL Albumin 4.5 3.2-4.5 GM/DL My Orders Orders - VIOLET PIERCE APRN Chlamydia Trachomatis Urine (03/19/22 13:52) Neis Bruce Dna Urine Test (03/19/22 13:52) Ua Culture If Indicated (03/19/22 13:52) Ed Iv/Invasive Line Start (03/19/22 13:52) Ct Abd/Pelvis Wo(Kidney Stone) (03/19/22 13:52) Us Scrotum (Testicle) [address] (03/19/22 13:52) Ketorolac Injection (Toradol Injection) (03/19/22 14:00) Fentanyl Inj (Sublimaze Injection) (03/19/22 14:00) Cbc With Automated Diff (03/19/22 13:52) Comprehensive Metabolic Panel (03/19/22 13:52) Medications Given in ED Current Medications Medications Dose Ordered Sig/Michelle Route Start Time Stop Time Status Last Admin Dose Admin Fentanyl Citrate 50 mcg ONCE ONCE IVP 03/19/22 14:00 03/19/22 14:01 DC 03/19/22 14:24 50 MCG Ketorolac Tromethamine 30 mg ONCE ONCE IVP 03/19/22 14:00 03/19/22 14:01 DC 03/19/22 14:24 30 MG Vital Signs/I&O 03/19/22 12:35 Temp 36.6 Pulse 84 Resp 16 B/P (MAP) 199/107 (137) Pulse Ox 97 O2 Delivery Room Air Blood Pressure Mean: 137 Departure Impression Primary Impression: Epididymitis with no abscess Disposition: HOME, SELF-CARE Condition: Stable Departure-Patient Inst. Decision time for Depature: 14:52 Referrals: [facility]/MICHAEL (PCP) Primary Care Physician CASEY CHIN (Family) Primary Care Physician Patient Instructions: Epididymitis (DC) Add. Discharge Instructions: 1. Elevate the scrotum is much as possible with either a towel rolled up beneath the scrotum or supportive underwear. Ice pack to the scrotum will be helpful from a pain standpoint. Take the antibiotics as directed return to ER for any worsening follow-up with your primary care provider next week. All discharge instructions reviewed with patient and/or family. Voiced unders tanding. Scripts Hydrocodone/Acetaminophen (Hydrocodone-Acetamin 5-325 mg) 5 Mg-325 Mg Tablet 1 TAB PO Q4H PRN for PAIN-MODERATE (5-7), #14 TAB Prov: VIOLET PIERCE SHEARING MACHINE TENDER 03/19/22 Levofloxacin (Levofloxacin) 500 Mg Tablet 500 MG PO DAILY, #7 TAB Prov: VIOLET PIERCE SHEARING MACHINE TENDER 03/19/22 VIOLET PIERCE SHEARING MACHINE TENDER Mar 19, 2022 13:56
[2022-03-19 13:59] LABS: BASOPHILS # (AUTO) 0.1 10^3/uL (0.0-0.1); BASOPHILS % (AUTO) 1 % (0-10); EOSINOPHILS # (AUTO) 0.2 10^3/uL (0.0-0.3); EOSINOPHILS % (AUTO) 2 % (0-10); HEMATOCRIT 53 % (40-54); LYMPHOCYTES # (AUTO) 2.1 10^3/uL (1.0-4.0); LYMPHOCYTES % (AUTO) 17 % (12-44); MEAN CORPUSCULAR HEMOGLOBIN 33 pg (25-34); MEAN CORPUSCULAR HGB CONC 34 g/dL (32-36); MEAN CORPUSCULAR VOLUME 96 fL (80-99); MEAN PLATELET VOLUME 10.6 fL (9.0-12.2); MONOCYTES % (AUTO) 8 % (0-12); NEUTROPHILS # (AUTO) 8.8 10^3/uL (1.8-7.8); NEUTROPHILS % (AUTO) 72 % (42-75); PLATELET COUNT 284 10^3/uL (130-400); WHITE BLOOD COUNT 12.2 10^3/uL (4.3-11.0)
[2022-03-19] MEDS ORDERED: fentaNYL INJ 100 MCG/2 ML AMP IVP ONE (14:00)
[2022-03-19] MEDS ORDERED: HOLD METFORMIN - RECEIVED CONTRAST 20 ML VIAL IV SCH (14:00)
[2022-03-19] MEDS ORDERED: KETOROLAC 30 MG/ML VIAL IVP ONE (14:00)
[2022-03-19] MEDS ORDERED: NS 100 ML (IVPB) BAG IV ONE (14:00)
[2022-03-19] MEDS ORDERED: CATHETER FLUSH 10 ML SYR IV PRN (14:00)
[2022-03-19] MEDS ORDERED: IOHEXOL 350 MG/ML 100 ML (OMNIPAQUE 350) VIAL IV ONE (14:00)
[2022-03-19 14:14] LABS: ALBUMIN 4.5 GM/DL (3.2-4.5); BILIRUBIN,TOTAL 0.7 MG/DL (0.1-1.0); CALCIUM 9.7 MG/DL (8.5-10.1); CREATININE SERUM 0.94 MG/DL (0.60-1.30); POTASSIUM 4.2 MMOL/L (3.6-5.0); TOTAL PROTEIN 7.8 GM/DL (6.4-8.2)
--- NOTE | 2022-03-19 14:38 | Diagnostic Imaging Report ---
INDICATION: Left scrotal pain. TECHNIQUE: Multiple contiguous axial images were obtained through the abdomen and pelvis without the use of intravenous contrast. Auto Exposure Controls were utilized during the CT exam to meet ALARA standards for radiation dose reduction. COMPARISON: There is no prior CT for comparison. FINDINGS: Visualized portions of the lung bases demonstrate some left basilar scarring and left pleural thickening. There is no consolidation or free pleural fluid. There is no free intraperitoneal air. The liver and gallbladder appear normal. Spleen and pancreas appear normal. There is a left adrenal nodule measuring about 2.4 cm. This shows Hounsfield units of -6, compatible with benign adenoma. The kidneys bilaterally show no stones or hydronephrosis. There is no retroperitoneal mass or adenopathy. There is no ascites or abnormal fluid collection. Visualized bowel loops show no sign of obstruction. There is no pelvic mass or lymphadenopathy. IMPRESSION: No evidence of urinary tract stone or hydronephrosis. Incidental 2.4 cm left adrenal adenoma. No acute process is detected. Dictated by: Dictated on workstation # [id number]
--- NOTE | 2022-03-19 14:41 | Diagnostic Imaging Report ---
INDICATION: Left scrotal pain. Scrotal sonography performed in the routine fashion, including color Doppler. FINDINGS: The right testicle measured 4.7 x 2.0 x 2.7 cm. The left testicle measured 2.0 x 3.0 x 4.2 cm. There is color flow to both vessels with no testicular mass or torsion. There are small bilateral hydroceles. The epididymides appear enlarged and hypervascular on both sides compatible with epididymitis. There are some echogenic mobile foci in the epididymal tail on the right side, which may represent calcifications or air bubbles. There is no evidence of varicocele. IMPRESSION: Findings compatible with epididymitis on both sides, left greater than right. No testicular torsion or mass. Small bilateral hydroceles. Dictated by: Dictated on workstation # [id number]
[2022-03-19] MEDS ORDERED: ACHD5005 PO (14:54)
[2022-03-19] MEDS ORDERED: LEVO-55 PO (14:54)
[2022-03-19] MEDS ORDERED: cefTRIAXone 1 GM PRE-MIX 50 ML IV ONE (15:00)
[2022-03-19 15:20] LABS: BILIRUBIN,URINE NEGATIVE (NEGATIVE); CLARITY,URINE CLEAR; COLOR,URINE YELLOW; GLUCOSE, URINE (UA) NEGATIVE (NEGATIVE); KETONES,URINE NEGATIVE (NEGATIVE); LEUKOCYTE ESTERASE ,URINE NEGATIVE (NEGATIVE); NITRITE,URINE NEGATIVE (NEGATIVE); PROTEIN,URINE NEGATIVE (NEGATIVE)
[2022-03-19 15:28] LABS: BACTERIA,URINE NEGATIVE /HPF
[2022-03-19 16:05] VITALS: BP 168/107
== END 2022-03-19 16:07 | disposition home or self-care (01) ==
LOC: EDUNIT# 12:24 → ER 12:26
DX: N45.1 Epididymitis (principal); Z28.310 Unvaccinated for COVID-19; F17.200 Nicotine dependence, unspecified, uncomplicated
CPT/HCPCS: 36415; 74176; 76870; 80053; 81000; 85025; 87491; 87591

== ENCOUNTER 2022-04-02 06:17 | Emergency (ER) | payer SELFPAY ==
[~2022-04-02] VITALS: Ht 187 cm; Wt 83.0 kg
[~2022-04-02 06:17] MED LIST changes: +ACHD5005 PO; +LEVO-55 PO
--- NOTE | 2022-04-02 06:41 | ED Back Pain ---
General Chief Complaint: Back Problems Stated Complaint: FALL 03.25.22,BACK PAIN,LEG NUMBNESS Nursing Triage Note: c/o lower back pain since 03/25/22 after fall onto back. pain radiating down left leg x3 days with numbness. (BERNA LEIVA) History of Present Illness Date Seen by Provider: Apr 02, 2022 Time Seen by Provider: 06:40 Initial Comments 51 yo male with pmhx of chronic back pain presents to the ED with chief complaint of Left low back pain since 03/25/22. He reports that he was playing with his grandkids and his "legs went under him" and he fell flat on his back onto concete. Notes no significant pain that day or the few days after but has had an increase in pain these last two days. Reports left lumbosacral sharp, shooting pain that radiates down his left leg. Reports 10/10 pain that resolves when he takes 1000mg of Ibuprofen but says pain immediately returns after medication wears off. He says he can bear weight but when he stands he describes it as "walking on a leg that is asleep". Has associated paresthesia and tingling in left lower extremity. No bladder incontinence or retention. No bowel incontinence. Denies any swelling, bruising, fever, CP, or SOB. No other complaints. (BERNA LEIVA) Allergies and Home Medications Allergies Coded Allergies: gabapentin (Unverified Adverse Reaction, Intermediate, 11/22/17) pt states med makes him aggressive Patient Home Medication List Home Medication List Reviewed: Yes (BERNA LEIVA) Amitriptyline HCl (Amitriptyline HCl) 25 Mg Tablet, 25 MG PO HS Prescribed by: WILDER ROBLERO on 04/02/22 0942 Cyclobenzaprine HCl (Cyclobenzaprine HCl) 10 Mg Tablet, 10 MG PO Q8H PRN for SPASMS Prescribed by: WILDER ROBLERO on 04/02/22 0942 Hydrocodone/Acetaminophen (Hydrocodone-Acetamin 5-325 mg) 5 Mg-325 Mg Tablet, 1 TAB PO Q4H PRN for PAIN-MODERATE (5-7) Prescribed by: WILDER ROBLERO on 04/02/22 0942 Ibuprofen (Ibuprofen) 200 Mg Tablet, 200 MG PO BID, (Reported) Entered as Reported by: DUC LAW on 07/29/211134 Prednisone (Prednisone) 20 Mg Tab, 40 MG PO DAILY Prescribed by: WILDER ROBLERO on 04/02/22 0942 Discontinued Medications Aspirin (Aspirin EC) 81 Mg Tablet.dr, 81 MG PO Q72H, (Reported) Discontinued Reason: No Longer Taking Entered as Reported by: DUC LAW on 07/29/21 1135 Last Action: Discontinued Cefdinir (Cefdinir) 300 Mg Capsule, 300 MG PO BID Discontinued Reason: No Longer Taking Prescribed by: JESSICA NELSON on 07/31/21829 Last Action: Discontinued Hydrocodone/Acetaminophen (Hydrocodone-Acetamin 5-325 mg) 5 Mg-325 Mg Tablet, 1 TAB PO Q4H PRN for PAIN-MODERATE (5-7) Discontinued Reason: No Longer Taking Prescribed by: VIOLET PIERCE on 03/19/221453 Last Action: Discontinued Levofloxacin (Levofloxacin) 500 Mg Tablet, 500 MG PO DAILY Discontinued Reason: No Longer Taking Prescribed by: VIOLET PIERCE on 03/19/221453 Last Action: Discontinued Lisinopril (Lisinopril) 10 Mg Tablet, 10 MG PO DAILY Discontinued Reason: No Longer Taking Prescribed by: JESSICA NELSON on 07/31/21829 Last Action: Discontinued Review of Systems Constitutional: no symptoms reported; No fever, No weakness EENTM: no symptoms reported Respiratory: no symptoms reported Cardiovascular: no symptoms reported Gastrointestinal: no symptoms reported Genitourinary: no symptoms reported; No decreased output, No hematuria, No incontinence Musculoskeletal: back pain Skin: no symptoms reported; No change in color Psychiatric/Neurological: Paresthesia, Tingling (BERNA LEIVA) All Other Systems Reviewed Negative Unless Noted: Yes (BERNA LEIVA) Past Vevivqg-Tyeooo-Zuneea Hx Patient Social History Tobacco Use?: Yes Substance use?: Yes Alcohol Use?: No Pt feels they are or have been: No (BERNA LEIVA) Immunizations Up To Date Tetanus Booster (TDap): Less than 5yrs First/Initial COVID19 Vaccinat: not vaccinated Second COVID19 Vaccination Dinh: not vaccinated Third COVID19 Vaccination Date: not vaccinated (BERNA LEIVA) Seasonal Allergies Seasonal Allergies: No (BERNA LEIVA) Past Medical History Surgery/Hospitalization HX: left finger amputation, right shoulder, knee, htn, anxiety, chronic back pain. Surgeries: Yes Amputation, Orthopedic Respiratory: No Cardiac: No Neurological: No Reproductive Disorders: No Genitourinary: No Gastrointestinal: No Musculoskeletal: Yes Arthritis, Chronic Back Pain, Fractures Endocrine: No HEENT: No (POOR DENTITION) Cancer: No Psychosocial: Yes Anxiety Integumentary: No Blood Disorders: No (BERNA LEIVA) Family Medical History Cancer, COPD, Diabetes, Hypertension (BERNA LEIVA) Physical Exam Vital Signs Vital Signs - First Documented 04/02/22 06:25 Temp 36.0 Pulse 94 Resp 16 B/P (MAP) 179/105 (129) Pulse Ox 94 O2 Delivery Room Air (WILDER CUBA MD) Vital Signs Capillary Refill : Less Than 3 Seconds (BERNA LEIVA) Height, Weight, BMI Height: 6'2.00" Weight: 196lbs. 3.0oz. [id number]; 23.00 BMI Method:Stated General Appearance: No Apparent Distress, WD/WN HEENT: PERRL/EOMI, TMs Normal, Normal ENT Inspection, Pharynx Normal Neck: Full Range of Motion, Normal Inspection, Non Tender, Supple Cardiovascular: Regular Rate, Rhythm, No Edema, No Gallop, No JVD, No Murmur, Normal Peripheral Pulses Respiratory: Chest Non Tender, Lungs Clear, Normal Breath Sounds, No Accessory Muscle Use, No Respiratory Distress Gastrointestinal: Normal Bowel Sounds, No Organomegaly, No Pulsatile Mass, Non Tender, Soft Back: Normal Inspection, No CVA Tenderness, No Vertebral Tenderness, Other (Tenerness to palpation of left low back ) Extremity: Normal Capillary Refill, Normal Inspection, Normal Range of Motion, Non Tender, No Calf Tenderness, No Pedal Edema, Other (+5/5 LE strength b/l, normal sensation b/l, +straight leg test on L ) Neurologic/Psychiatric: Alert, Oriented x3, No Motor/Sensory Deficits, Normal 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, 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 Skin: Normal Color, Warm/Dry Lymphatic: No Adenopathy (BERNA LEIVA) Progress/Results/Core Measures Results/Orders My Orders Orders - WILDER CUBA MD Ketorolac Injection (Toradol Injection) (04/02/22 07:30) Ct Lumbar Spine Wo (04/02/22 07:45) Ct Pelvis Wo (04/02/22 07:45) (WILDER CUBA MD) Medications Given in ED Current Medications Medications Dose Ordered Sig/Michelle Route Start Time Stop Time Status Last Admin Dose Admin Ketorolac Tromethamine 30 mg ONCE ONCE IM 04/02/22 07:30 04/02/22 07:31 DC 04/02/22 07:39 30 MG (WILDER CUBA MD) Vital Signs/I&O 04/02/22 06:25 Temp 36.0 Pulse 94 Resp 16 B/P (MAP) 179/105 (129) Pulse Ox 94 O2 Delivery Room Air (WILDER CUBA MD) Blood Pressure Mean: 129 Progress Progress Note #1: Time: 07:58 Progress Note Patient was interviewed and examined along with MS 3. Morphine injection was given for pain control. CT of the lumbar spine and pelvis is pending. Patient showed no neurologic deficits of the lower extremities on exam. He did have tenderness extending into the left sacral region which prompted the inclusion of CT pelvis on the imaging. Patient described no bowel or bladder dysfunction or saddle paresthesia associated with this injury. His motor strength appears normal in the left lower extremity and functional deficits seem to be secondary to pain. Progress Note #2: Time: 09:35 Progress Note Patient received Toradol with some improvement. CT revealed stenosis at L4-L5 from disc bulge. I reviewed return precautions including symptoms of cauda equina with the patient. See discharge instructions for further discussion. Work note was provided also. (WILDER CUBA MD) Diagnostic Imaging Diagonstic Imaging: CT Plain Films/CT/US/NM/MRI: other (lumbar spine) Comments CT lumbar spine viewed by me and report reviewed. See report below: NAME: NURIS [facility] REC#: [id number] PT STATUS: REG ER : 1970 PHYSICIAN: WILDER CUBA MD ADMIT DATE: 04/02/22/ER Signed Date of Exam:04/02/22 CT LUMBAR SPINE WO PROCEDURE: CT lumbar spine without contrast. TECHNIQUE: Multiple contiguous axial images were obtained through the lumbar spine without the use of intravenous contrast. Sagittal and coronal reformations were then performed. Auto Exposure Controls were utilized during the CT exam to meet ALARA standards for radiation dose reduction. INDICATION: Low back pain with left radiculopathy after a fall Vertebral body heights and alignment appear normal. There are no compression fractures seen. The posterior elements appear to be intact. There is disc space narrowing at L5-S1 with vacuum disc phenomena. There are small osteophytes forming anteriorly at each lumbar level. IMPRESSION: Mild spondylosis deformans. Moderate degenerative disc changes L5-S1. There is bulging annulus at L4-L5 eccentric to the left with some hypertrophy of facets causing a central stenosis. Dictated by: Dictated on workstation # [id number] Dict: 04/02/2235 Trans: 04/02/22837 [facility] [id number] Interpreted by: DENISE CLAYTON MD Electronically signed by: DENISE CLAYTON MD 04/02/22837 Diagonstic Imaging: Xray Plain Films/CT/US/NM/MRI: pelvis Comments CT pelvis viewed by me and report reviewed. See report below: NAME: NURIS [facility] REC#: [id number] PT STATUS: REG ER : 1970 PHYSICIAN: WILDER CUBA MD ADMIT DATE: 04/02/22/ER Draft Date of Exam:04/02/22 CT PELVIS WO PROCEDURE: ' CT pelvis without contrast. TECHNIQUE: Multiple contiguous axial images were obtained through the pelvis without the use of intravenous contrast. Sagittal and coronal reformations were performed. Auto Exposure Controls were utilized during the CT exam to meet ALARA standards for radiation dose reduction. INDICATION: Fall with back and pelvic pain. FINDINGS: The femoral heads are in normal articulation with the acetabula bilaterally. The joint spaces are well-maintained. There are no fractures. The SI joints are symmetrical and appear normal. No soft tissue abnormalities. IMPRESSION: Normal pelvis. Dictated on workstation # [id number] Dict: 04/02/22833 Trans: 04/02/22917 [id number] Interpreted by: VIC TIWARI MD (WILDER CUBA MD) Departure Impression Primary Impression: Lumbar radiculopathy Additional Impressions: Fall on same level as cause of accidental injury Lumbar spinal stenosis Qualified Codes: M48.062 - Spinal stenosis, lumbar region with neurogenic claudication Disposition: 01 HOME, SELF-CARE Condition: Improved Departure-Patient Inst. Referrals: ISMA MOE MD (PCP/Family) Primary Care Physician Patient Instructions: Spinal Stenosis, Radiculopathy, Spinal Stenosis Stretch ing Exercises Add. Discharge Instructions: Drink plenty of clear liquids to stay well-hydrated. Work toward quitting smoking as rapidly as possible. Work with your primary care physician if you need assistance with quitting smoking. This is important for your long-term health including your bone and joint issues. He may take ibuprofen up to 600 mg every 6 hours as needed for primary pain control. In addition to ibuprofen you can add either Tylenol (acetaminophen) up to 1000 mg every 6 hours or hydrocodone as prescribed. Hydrocodone contains Tylenol (acetaminophen) so be careful not to double dose on acetaminophen. Do not use hydrocodone while driving or operating machinery. Do not use while welding. Hydrocodone may also cause constipation. You may wish to use an hnjv-fvc-vlydatp stool softener such as Colace while on hydrocodone. Cyclobenzaprine muscle relaxer may be used when at rest at home. Do not use when driving or operating machinery. Amitriptyline can be used at bedtime to help with the nerve pain. Follow-up with your primary care provider soon as possible to discuss further course of care and evaluation. Based on your symptoms and your primary care doctor's discretion, further work-up such as MRI or further treatment such as physical therapy may be recommended. Prednisone is being prescribed to reduce inflammation and hopefully shrink the bulging of your disc. Prednisone may cause sleep disturbance or jitteriness. Take early in the day to avoid sleep disturbance. Also take with food or milk to avoid stomach upset. Return to the emergency room if you develop worsening symptoms, especially if y ou have escalating pain that is not reduced with the medications, true weakness in your legs, numbness of your groin or genitals, or bowel or bladder dysfunction. All discharge instructions reviewed with patient and/or family. Voiced understanding. Scripts Amitriptyline HCl (Amitriptyline HCl) 25 Mg Tablet 25 MG PO HS, #30 TAB If not effective at 25 mg after 1 week, may increase to 50 mg at bedtime. Prov: WILDER CUBA MD 04/02/22 Prednisone (Prednisone) 20 Mg Tab 40 MG PO DAILY, #10 TAB 0 Refills Prov: WILDER CUBA MD 04/02/22 Cyclobenzaprine HCl (Cyclobenzaprine HCl) 10 Mg Tablet 10 MG PO Q8H PRN for SPASMS, #15 TAB 0 Refills Prov: WILDER CUBA MD 04/02/22 Hydrocodone/Acetaminophen (Hydrocodone-Acetamin 5-325 mg) 5 Mg-325 Mg Tablet 1 TAB PO Q4H PRN for PAIN-MODERATE (5-7), #20 TAB Prov: WILDER CUBA MD 04/02/22 Work/School Note: Work Release Form Date Seen in the Emergency Department: Apr 02, 2022 Return to Work: Apr 03, 2022 Other Restrictions Listed Below: No lifting over 20 lbs for 2 weeks. Restrictions: May need frequent breaks to rest back from disc bulge. Medical Student Attestation and Attending Note: I have personally interviewed and examined this patient along with Berna Leiva, MS 3. I have reviewed student documentation including history, physical, and assessments. I agree with the documentation except where otherwise noted. Exam: General: Alert, oriented, no acute distress, well developed HEENT: Normocephalic and atraumatic Heart: Regular rate and rhythm without murmur Lungs: Clear to auscultation bilaterally with normal effort Abdomen: Soft, nontender, nondistended, normal bowel sounds Back: Tenderness along the mid and lower lumbar spine and left paraspinous region. Tenderness extends over the left sacral region as well. Neuropsych: Alert, oriented, no focal deficits. No motor deficits detected in the left lower extremity. Skin: Warm and dry without rashes (WILDER CUBA MD) Copy Copies To 1: ISMA MOE MD, ANISHA T Apr 02, 2022 06:41 WILDER CUBA MD Apr 02, 2022 08:02
[2022-04-02] MEDS ORDERED: KETOROLAC 30 MG/ML VIAL IM ONE (07:30)
--- NOTE | 2022-04-02 08:39 | Diagnostic Imaging Report ---
PROCEDURE: CT lumbar spine without contrast. TECHNIQUE: Multiple contiguous axial images were obtained through the lumbar spine without the use of intravenous contrast. Sagittal and coronal reformations were then performed. Auto Exposure Controls were utilized during the CT exam to meet ALARA standards for radiation dose reduction. INDICATION: Low back pain with left radiculopathy after a fall Vertebral body heights and alignment appear normal. There are no compression fractures seen. The posterior elements appear to be intact. There is disc space narrowing at L5-S1 with vacuum disc phenomena. There are small osteophytes forming anteriorly at each lumbar level. IMPRESSION: Mild spondylosis deformans. Moderate degenerative disc changes L5-S1. There is bulging annulus at L4-L5 eccentric to the left with some hypertrophy of facets causing a central stenosis. Dictated by: Dictated on workstation # [id number]
--- NOTE | 2022-04-02 09:19 | Diagnostic Imaging Report ---
PROCEDURE: ' CT pelvis without contrast. TECHNIQUE: Multiple contiguous axial images were obtained through the pelvis without the use of intravenous contrast. Sagittal and coronal reformations were performed. Auto Exposure Controls were utilized during the CT exam to meet ALARA standards for radiation dose reduction. INDICATION: Fall with back and pelvic pain. FINDINGS: The femoral heads are in normal articulation with the acetabula bilaterally. The joint spaces are well-maintained. There are no fractures. The SI joints are symmetrical and appear normal. No soft tissue abnormalities. IMPRESSION: Normal pelvis. Dictated by: Dictated on workstation # [id number]
[2022-04-02] MEDS ORDERED: PRD20T PO (09:42)
[2022-04-02] MEDS ORDERED: CYCL10TA25 PO (09:42)
[2022-04-02] MEDS ORDERED: AMIT25TA9 PO (09:42)
[2022-04-02] MEDS ORDERED: ACHD5005 PO (09:42)
[2022-04-02 10:01] VITALS: BP 142/86
== END 2022-04-02 10:02 | disposition home or self-care (01) ==
LOC: EDUNIT# 06:17 → ER 06:21
DX: M54.16 Radiculopathy, lumbar region (principal); M48.061 Spinal stenosis, lumbar region without neurogenic claudication; Z28.310 Unvaccinated for COVID-19; W18.30XA Fall on same level, unspecified, initial encounter; Y93.89 Activity, other specified
CPT/HCPCS: 72131; 72192